=== PATIENT | female | born 1935 | race Caucasian/White ===

== ENCOUNTER 2020-07-22 15:43 | Inpatient (IN) | payer MEDICARE, OTHER, SELFPAY ==
[2020-07-22] VITALS (8 sets, daily range): BP systolic 97–126; BP diastolic 56–80; PULSE 66–78; RESP 16–20; TEMP 36.1–37.3; O2SAT 95–98; BMI 31.6; BMI 31.8
--- NOTE | 2020-07-22 16:26 | CT_ITS ---
STUDY: CT BRAIN WITHOUT CONTRAST REASON FOR EXAM: Female, 84 years old. Headache after a fall RADIATION DOSAGE (If Supplied By Facility): CTDIvol = ( 44.99 ) mGy, DLP = ( 829.85 ) mGycm TECHNIQUE: Transaxial CT imaging of the brain was performed without administration of intravenous contrast material. Individualized dose optimization techniques were used for this CT. COMPARISON: No relevant priors. FINDINGS: Normal soft tissue structures. Normal calvarium. Normal size ventricles and extra-axial spaces for the patient''s age. Normal white matter tracts of the cerebral hemispheres. Normal basal ganglia and thalami. Normal brainstem. Normal cerebellum. There is no intracranial hemorrhage. There are no findings of an acute ischemic infarction. Normal visualized paranasal sinuses. CT/Brain/Head without Contrast IMPRESSION: Chronic involutional changes of the brain. No acute hemorrhage Electronically Signed: Israel Blanco MD at 17:28 EST , Service support ,
--- NOTE | 2020-07-22 16:27 | EKG12_ITS ---
Test Reason : DIZZY Blood Pressure : / mmHG Vent. Rate : 069 BPM Atrial Rate : 069 BPM P-R Int : 144 ms QRS Dur : 088 ms QT Int : 442 ms P-R-T Axes : 027 027 068 degrees QTc Int : 473 ms Normal sinus rhythm with sinus arrhythmia Normal ECG Confirmed by HUNTER HUYNH, SERGEY ([id number]), book editor SHAUNNA RASCON ([id number]) on 07/27/2020 11:14:06 AM Referred By: CORNELIUS Confirmed By:ABRAM HARRISON MD
--- NOTE | 2020-07-22 17:16 | ED.VIS.GEN ---
History of Present Illness Chief Complaint: General Illness Informant: Patient Onset: Days Context: Gradual Onset Timing: Continuous Narrative: Patient is an 84-year-old female with recent hospitalization for diverticulitis, 1 week ago at [facility] and currently on antibiotics, ischemic cardiomyopathy and atrial fibrillation presenting with increased weight gain and shortness of breath. Patient states she has had an 8 pound weight gain in the past week. She states she received a lot of fluid when she was hospitalized last week. She no she has had increased shortness of breath and dyspnea on exertion. She is now short of breath just walking to the other room. She also notes that while she is been taking her Lasix she has had decreased urination last night. She has some mild associated nausea but no vomiting and no abdominal pain. Her bowel movements are still loose but seem to be improving. In addition patient had a mechanical fall yesterday. She states she tripped trying to get up and fell forward. She landed on her face. She had no loss of consciousness. She does have bruising around her nose and eyes and soreness over her nasal bridge. Patient was instructed to come to the ER by her primary care doctor for concern of CHF exacerbation. Finally patient states that she has been having some back and neck pain for quite some time. It seems to be worse than normal. She describes an aching in nature. She denies any new injury. Denies any associated fever. She has had a mild cough that is nonproductive. Past Medical History - Allergies and Home Meds Allergies/Adverse Reactions: Allergies Penicillins [PCN] Allergy (Verified 07/22/20 15:44) Hives Past Medical History: - - Ischemic cardiomyopathy, atrial fibrillation, CHF, rheumatoid arthritis, diverticulitis Surgical History: pacemaker implantation Smoking Status: Never smoker - Family History Maternal Family History: Reports: Cancer, Heart Disease Paternal Family History: Reports: High Cholesterol, Heart Disease, Hypertension Review of Systems General: Reports: Malaise. Denies: Chills, Fever, Sweats Eyes: Denies: Visual changes - bilaterally, Diplopia ENT: Denies: Bilateral ear pain, Rhinorrhea, Sore throat Cardiovascular: Denies: Chest pain, Palpitations Respiratory: Reports: Dyspnea, Cough, Dyspnea on exertion. Denies: Sputum, Orthopnea - Patient denies orthopnea but did sleep in recliner last night Gastrointestinal: Denies: Abdominal pain, Nausea, Vomiting, Diarrhea, Melena, Hematochezia Genitourinary: Denies: Dysuria, Hematuria, Frequency Musculoskeletal: Reports: Neck pain, Back pain, Swelling - Lower extremities. Denies: Extremity Pain Skin: Reports: - - Bruising to face around eyes and nose. Denies: Rash, Wounds Neurological: Denies: Headache, Weakness, Numbness Physical Exam Vital Signs/Narrative: Vital Signs Temp Pulse Resp BP Pulse Ox 07/22/20 15:45 97 F L 73 16 125/56 H 97 Inital Vital Signs reviewed: Yes General: Well nourished, Well developed, No Acute Distress Head: Normocephalic, Atraumatic Eyes: Perrl, EOMI ENT: Moist mucous membranes, No rhinorrhea, TM's clear, - - No hemotympanum, no septal hematoma Neck: Supple, Nontender, - - Mild JVD, no midline tenderness, normal range of motion Cardiovascular: Regular rate, Regular rhythm, No murmurs Respiratory: No distress, Chest nontender, Diminished - Diminished breath sounds at the left base with crackles present Abdomen: Soft, Nontender, Nondistended, Normal bowel sounds Back: Nontender, Normal Inspection. Negative for: CVA tenderness, Spinal tenderness Extremities: Nontender, Edema - 2+ pitting edema up to the proximal shins Skin: Normal color, No rash, Trauma - Periorbital ecchymosis and superficial abrasion on the bridge of the nose Neurological: Alert, Oriented x3, Cranial nerves II-XII grossly intact, Normal Strength, Normal Sensation Psychological: Normal affect, Normal Mood Diagnostic/Tx/Re-eval Chest X-Ray - ED: 1 View, Read by ED Physician, Read by Radiologist, No Acute Disease Clinical Impression(s) from Imaging Studies Brain CT 07/22/20 16:26 IMPRESSION: Chronic involutional changes of the brain. No acute hemorrhage Electronically Signed: Israel Blanco MD at 17:28 EST , Service support , Chest X-Ray 07/22/20 17:20 IMPRESSION: Minor discoid atelectasis or scarring at left base and ASHD. No gross infiltration or pulmonary edema Electronically Signed: Yahir Merida MD at 17:41 EST , Service support , Laboratory Data 07/22/20 07/22/20 07/22/20 17:05 17:05 17:05 WBC 9.7 RBC 3.17 L Hgb 10.1 L Hct 31.7 L MCV 100.0 H MCH 31.9 MCHC 31.9 L RDW Std Deviation 56.6 H RDW Coeff of Christiano 15.4 H Plt Count 144 L MPV 11.7 Immature Gran % (Auto) 0.500 Neut % (Auto) 62.4 Lymph % (Auto) 27.1 [place] % (Auto) 9.2 Eos % (Auto) 0.5 Baso % (Auto) 0.3 Absolute Neuts (auto) 6.0 Absolute Lymphs (auto) 2.63 Nucleated RBC % 0 PT 15.5 H INR 1.3 Sodium 139 Potassium 5.0 Chloride 108 H Carbon Dioxide 24.0 Anion Gap 7 BUN 43 H Creatinine 3.41 H Estim Creat Clear Calc 11.94 Est GFR (MDRD) Af Amer 17 L Est GFR (MDRD) Non-Af 14 L BUN/Creatinine Ratio 12.6 Glucose 91 Calcium 8.7 Magnesium Total Bilirubin 0.20 AST 18 ALT 23 Alkaline Phosphatase 47 Troponin I < 0.015 B-Natriuretic Peptide Total Protein 6.7 Albumin 3.3 Globulin 3.4 Albumin/Globulin Ratio 1.0 Urine Color Urine Clarity Urine pH Ur Specific [place] Urine Protein Urine Glucose (UA) Urine Ketones Urine Occult Blood Urine Nitrite Urine Bilirubin Urine Urobilinogen Ur Leukocyte Esterase Urine RBC Urine WBC Ur Squamous Epith Cells Urine Bacteria Hyaline Casts Urine Mucus Ur Random Sodium Urine Creatinine 07/22/20 07/22/20 07/22/20 17:05 17:05 18:44 WBC RBC Hgb Hct MCV MCH MCHC RDW Std Deviation RDW Coeff of [place] Plt Count MPV Immature Gran % (Auto) Neut % (Auto) Lymph % (Auto) [place] % (Auto) Eos % (Auto) Baso % (Auto) Absolute Neuts (auto) Absolute Lymphs (auto) Nucleated RBC % PT INR Sodium Potassium Chloride Carbon Dioxide Anion Gap BUN Creatinine Estim Creat Clear Calc Est GFR (MDRD) Af Amer Est GFR (MDRD) Non-Af BUN/Creatinine Ratio Glucose Calcium Magnesium 1.8 Total Bilirubin AST ALT Alkaline Phosphatase Troponin I B-Natriuretic Peptide 136.9 H Total Protein Albumin Globulin Albumin/Globulin Ratio Urine Color Urine Clarity Urine pH Ur Specific [place] Urine Protein Urine Glucose (UA) Urine Ketones Urine Occult Blood Urine Nitrite Urine Bilirubin Urine Urobilinogen Ur Leukocyte Esterase Urine RBC Urine WBC Ur Squamous Epith Cells Urine Bacteria Hyaline Casts Urine Mucus Ur Random Sodium 106 Urine Creatinine 84.90 07/22/20 18:45 WBC RBC Hgb Hct MCV MCH MCHC RDW Std Deviation RDW Coeff of Christiano Plt Count MPV Immature Gran % (Auto) Neut % (Auto) Lymph % (Auto) [place] % (Auto) Eos % (Auto) Baso % (Auto) Absolute Neuts (auto) Absolute Lymphs (auto) Nucleated RBC % PT INR Sodium Potassium Chloride Carbon Dioxide Anion Gap BUN Creatinine Estim Creat Clear Calc Est GFR (MDRD) Af Amer Est GFR (MDRD) Non-Af BUN/Creatinine Ratio Glucose Calcium Magnesium Total Bilirubin AST ALT Alkaline Phosphatase Troponin I B-Natriuretic Peptide Total Protein Albumin Globulin Albumin/Globulin Ratio Urine Color Yellow Urine Clarity Clear Urine pH 6.0 Ur Specific [place] 1.020 Urine Protein 15 H Urine Glucose (UA) Normal Urine Ketones Negative Urine Occult Blood 50 H Urine Nitrite Negative Urine Bilirubin Negative Urine Urobilinogen Normal Ur Leukocyte Esterase 500 H Urine RBC 0 SEEN Urine WBC 0-5 SEEN Ur Squamous Epith Cells 0-5 SEEN Urine Bacteria 0 SEEN Hyaline Casts 0-5 SEEN Urine Mucus 0 SEEN Ur Random Sodium Urine Creatinine - Rhythm Strip Rhythm Strip: Sinus Rhythm Rate: 69 Ectopy: None - EKG Initial EKG Interpretation: Sinus Rhythm, - - Normal sinus rhythm at a rate of 69 with sinus arrhythmia Normal axis Normal intervals Normal ST segments - Medical Decision Making Patient evaluated for increased weight gain after recent hospitalization. Concerns for fluid overload. In addition she elicits increase shortness of breath. Patient saw PCP today who was concerned as patient was hypotensive with a systolic blood pressure of 80. In addition patient did have a fall last night which he says was mechanical. Patient is on a blood thinner. Patient does have significant history of CHF/ischemic cardiomyopathy. Despite her weight gain patient appears intravascularly depleted and has a significant bump in her creatinine concerning for acute kidney injury. While her orthostatics are negative her blood pressure is on the low normal side. I think patient would benefit from gentle IV hydration and further inpatient monitoring. Patient is agreeable this plan of care. Patient stable at time of disposition. T of the brain obtained as patient had a fall on anticoagulation. This shows no acute intracranial process. Patient's abdominal pain from her recent diverticulitis is improving. She does have 500 leukoesterase in her urine however no bacteria. Urine culture sent. ED Disposition - Plan for ED Patient: Disposition: [facility] Diagnosis: LES (acute kidney injury), CKD (chronic kidney disease), stage III, Ischemic cardiomyopathy
--- NOTE | 2020-07-22 17:20 | RAD_ITS ---
STUDY: X-RAY CHEST REASON FOR EXAM: Female, 84 years old. fluid retention, weakness, hypotensive TECHNIQUE: PA and lateral COMPARISON: 02/27/2016 FINDINGS: Minor discoid atelectasis or scarring at left base.. There is no demonstrated pleural abnormality. Heart is enlarged. Normal mediastinum and leonie. Normal visualized pulmonary arteries. Mildly calcified aortic arch and descending thoracic aorta. Pacer noted on the left with electrodes in satisfactory position. Dorsal spine and shoulders demonstrate degenerative change. Normal visualized ribs, and clavicles. There is no demonstrated abnormality of the visualized soft tissue structures of the upper abdomen. RAD/Chest PA and Lateral IMPRESSION: Minor discoid atelectasis or scarring at left base and ASHD. No gross infiltration or pulmonary edema Electronically Signed: Yahir Merida MD at 17:41 EST , Service support ,
[2020-07-22 17:22] LABS: Absolute Lymphocyte Count 2.63 X10^3/uL (0.83-4.51); Basophil# 0.03 X10^3/uL; Basophil% 0.3 % (0-1); Eosinophil# 0.05 X10^3/uL; Eosinophils% 0.5 % (0-5); Hematocrit 31.7 % (37-47); Hemoglobin 10.1 g/dL (12.0-15.0); Lymphocyte # 2.63 X10^3/ul (4.0); Lymphocyte % 27.1 % (19-41); Mean Corp Hgb Conc 31.9 g/dL (32-36); Mean Corpuscular Hgb 31.9 pg (27.0-32.0); Mean Platelet Vol. 11.7 fl (6.2-12.0); Monocyte# 0.89 X10^3/uL; Monocyte% 9.2 % (0-10); NRBC Flagged by Analyzer 0 % (0-5); Neutrophil # 6.04 X10^3/uL (2.7-7.7); Neutrophil % 62.4 % (47-70); Platelet Count 144 K/mm3 (150-450); RBC Distribution Width CV 15.4 % (11.6-14.6); RBC Distribution Width SD 56.6 fl (35.1-43.9); Red Blood Count 3.17 M/mm3 (4.2-5.4); White Blood Count 9.7 K/mm3 (4.4-11.0)
[2020-07-22 17:35] LABS: International Normalized Ratio 1.3; Prothrombin Time (Protime)PT. 15.5 SECONDS (11.7-14.9)
[2020-07-22 17:39] LABS: BNP,B-Type NATRIURETIC PEPTIDE 136.9 pg/mL (0-100)
[2020-07-22 17:43] LABS: AST(SGOT) 18 U/L (15-37); Alanine Aminotransfer ALT/SGPT 23 U/L (13-56); Albumin, Serum 3.3 g/dL (3.2-5.0); Alkaline Phosphatase 47 U/L (45-117); Anion Gap 7 (5-15); BUN 43 mg/dL (7-18); BUN/Creat Ratio 12.6 RATIO (10-20); Calcium,Total 8.7 mg/dL (8.5-10.1); Chloride 108 mmol/L (98-107); Creatinine, Serum 3.41 mg/dL (0.55-1.02); EST Glomerular Filtration Rate 14 mL/min (>60); Est Glom Filt Rate - Afr Amer 17 mL/min (>60); Estimated Creatinine Clearance 11.94 ml/min; Globulin 3.4 g/dL (2.2-4.2); Glucose 91 mg/dL (74-106); Protein, Total 6.7 g/dL (6.4-8.2); Sodium Level 139 mmol/L (136-145)
[2020-07-22 18:53] LABS: Color, Urine Yellow (Yellow); Glucose, Dipstick Normal (Normal); Ketone-Dipstick Negative (Negative); Leukocyte Esterase-Dipstick 500 /ul (Negative); Nitrite-Dipstick Negative (Negative); Occult Blood-Urine 50 /ul (Negative); Protein-Dipstick 15 mg/dl (Negative); Urine Bilirubin Dipstick Negative (Negative); Urine Clarity Clear (Clear); Urine Urobilinogen Normal (Normal)
[2020-07-22 18:54] LABS: Bacteria 0 SEEN /hpf (None Seen); Mucous, Urine 0 SEEN /hpf (<or=2+); Red Blood Cells-Urine 0 SEEN /hpf (0-5)
[2020-07-22 19:04] LABS: Hyaline Cast 0-5 SEEN /lpf (0-5); Squamous Epithelial Cells - UA 0-5 SEEN /hpf (5-10); White Blood Cells 0-5 SEEN /hpf (0-5)
--- NOTE | 2020-07-22 19:22 | PCM.HP.STD ---
Problem List (1) LES (acute kidney injury) Status: Acute (2) Hypertension Status: Chronic Qualifiers: Hypertension type: essential hypertension Qualified Code(s): I10 - Essential (primary) hypertension (3) Hyperlipidemia Status: Chronic Qualifiers: Hyperlipidemia type: unspecified Qualified Code(s): E78.5 - Hyperlipidemia, unspecified (4) Chronic anemia Status: Chronic (5) Ischemic cardiomyopathy Status: Chronic (6) CAD (coronary artery disease) Status: Chronic Qualifiers: Coronary Disease-Associated Artery/Lesion type: unspecified vessel or lesion type [place] vs. transplanted heart: unspecified whether [place] or transplanted heart Associated angina: angina presence unspecified Qualified Code(s): I25.10 - Atherosclerotic heart disease of [place] coronary artery without angina pectoris (7) Systolic CHF Status: Chronic Qualifiers: Heart failure chronicity: chronic Qualified Code(s): I50.22 - Chronic systolic (congestive) heart failure (8) Hypothyroidism Status: Chronic Qualifiers: Hypothyroidism type: unspecified Qualified Code(s): E03.9 - Hypothyroidism, unspecified (9) PAF (paroxysmal atrial fibrillation) Status: Chronic (10) CKD (chronic kidney disease), stage III Status: Chronic Qualifiers: Chronic kidney disease stage 3 subtype: unspecified whether 3a or 3b Qualified Code(s): N18.30 - Chronic kidney disease, stage 3 unspecified (11) Anxiety and depression Status: Chronic (12) Rheumatoid arthritis Status: Chronic Qualifiers: Rheumatoid arthritis location: unspecified site History of Present Illness Date of Admission: 07/22/20 Chief Complaint: Weakness, hypotensive, recent [facility] Diverticulitis The patient is a 84 y/o F w/ PMHx: CAD s/p PCI x 6 with hx TX, PAF on eliquis, CKD stage III, Psoriatic Arthritis, HTN, HLD, Hypothyroidism, Obesity, Anxiety and Depression, Chronic anemia/Fe Deficiency anemia, Chronic CHF suspected Systolic/Ischemic Cardiomyopathy s/p AICD/pacemaker who presents to the [facility] ED on 07/22/20 with history of recent hospitalization at [facility] for acute diverticulitis currently on antibiotic therapy who has had worsening dyspnea, reportedly an 8 pound weight gain over the last week and notes that while she was recently hospitalized she did receive significant IV fluids noting significant dyspnea primarily worse with exertion and despite taking her Lasix has had decreased urine output with some mild nausea with no emesis however. She notes that her bowel movements have been improving, still mildly loose but less than previously. Patient notes that she has been weak and did have mechanical fall the day prior, falling forward landing on her face with no loss of consciousness but significant ecchymoses around her nose, nasal bridge and eyes. She had a history of COVID the prior October and has had pulmonary issues following per her report. She was seen per her PCP in the office today and was noted to be hypotensive at that time. Work-up in the ED included T 97, heart rate 73, BP 125/56 after repeat 98/56, not severe appearing orthostatics, respiratory rate 16, 97% on room air, CBC with WC 9.7, hemoglobin 10.1, platelet 144 without marked shift, coags with PT 15.5, INR 1.3, CMP with chloride 108, BUN/creatinine 43/3.41, troponin less than 0.015, BNP 136.9, urinalysis with specific gravity 1.020, occult blood 50, negative nitrite, leukocyte esterase 500, no urine WBCs or urine bacteria noted, SARS Covid rapid antigen negative, CT of the brain with chronic involutional changes with no acute intracranial findings, chest x-ray with minor discoid atelectasis or scarring at the left base and ASHD with no acute cardiopulmonary findings including pulmonary edema. Past Medical History Past Medical History (Chronic Problems): Chronic Problems Hypertension (Chronic) Hyperlipidemia (Chronic) Chronic anemia (Chronic) Ischemic cardiomyopathy (Chronic) CAD (coronary artery disease) (Chronic) Systolic CHF (Chronic) Hypothyroidism (Chronic) PAF (paroxysmal atrial fibrillation) (Chronic) CKD (chronic kidney disease), stage III (Chronic) Anxiety and depression (Chronic) Rheumatoid arthritis (Chronic) Allergies Penicillins [PCN] Allergy (Verified 07/22/20 15:44) Hives Home Medications: Ambulatory Orders Medication Instructions Recorded Abatacept [Orencia] 500 mg IV X1 02/25/16 Aspirin [Aspirin, Baby] 81 mg PO DAILY@79902/25/16 Calcium Carbonate/Vitamin D3 1 each PO BID 02/25/16 [Caltrate 600 Plus D3 Tablet] Citalopram [Celexa] 20 mg PO DAILY 02/25/16 Ferrous Sulfate 325 mg PO DAILY@79902/25/16 Folic Acid 1 mg PO DAILY@79902/25/16 Gabapentin [Neurontin] 100 mg PO BIDCM 02/25/16 Metoprolol(XL)Succ [Toprol Xl 25 mg PO DAILY 02/25/16 (Beta Mariela)] Nitroglycerin (INPATIENT USE) 0.4 mg SUBLINGUAL Q5M PRN 02/25/16 [Nitrostat] Levothyroxine [Synthroid] 100 mcg PO DAILY 02/26/16 Apixaban [Eliquis] 2.5 mg PO BID 07/22/20 Furosemide [Lasix] 20 mg PO MOWEFR 07/22/20 Gabapentin [Neurontin] 300 mg PO QHS 07/22/20 Isosorbide Mononitrate [Imdur] 120 mg PO DAILY 07/22/20 Lisinopril [Zestril] 2.5 mg PO DAILY 07/22/20 Lovastatin 20 mg PO QHS 07/22/20 Potassium Chloride [Klor-Con M10] 10 meq PO MOWEFR 07/22/20 Prednisone 5 mg PO BID 07/22/20 Sacubitril/Valsartan 24/26 mg 1 tab PO BID 07/22/20 [Entresto 24 mg-26 mg Tablet] Smz/Tmp Ds [Bactrim Ds] 1 tab PO BID 07/22/20 metroNIDAZOLE [Flagyl] 500 mg PO TID 07/22/20 traMADol [Ultram (G)] 100 mg PO Q6H PRN PRN 07/22/20 Surgical History: pacemaker implantation, - - AICD/pacemaker, bilateral cataract surgery, cholecystectomy, left femur fracture, right ankle total replacement, hemorrhoidectomy, PCI x6. 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 Denies: Chills, Fever, Weight Change HEENT: Reports: - - Facial discomfort given recent fall, landing on face.. Denies: Head Aches, Sinus Congestion, Sinus Drainage Cardiovascular: Reports: Edema. Denies: Chest Pain, Chest Pressure, Chest Tightness, Light Headedness, Orthopnea, Palpitations, Syncope Respiratory: Reports: Cough, Shortness of breath upon exertion. Denies: Shortness of Breath, Shortness of breath at rest, Sputum production Gastrointestinal: Denies: Abdominal Pain, Nausea, Vomiting Genitourinary: Denies: Dysuria Musculoskeletal: Reports: Joint Pain. Denies: Joint Tenderness Skin: Reports: Skin Changes. Denies: Rash, Wounds Neurological: Denies: Numbness, Tingling, Focal weakness Psychiatric: Reports: Anxiety, Depression. Denies: Homicidal Ideations, Suicidal Ideations Hematologic/ Lymphatic: Reports: Anemia, Easy Bruising, Easy Bleeding VTE Information - Inpt Only VTE Present on Admission: No VTE Mechan Device Prophylaxis: SCD's VTE Pharm Prophylaxis ordered?: No Reason prophylaxis not ordered:: Treatment Not Indicated - Continue home eliquis regimen. Patient Problems: Active and Suspected Problems LES (acute kidney injury) (Acute) Subjective: Patient seated upright in the ED bed, fatigued appearing otherwise no acute distress, significant recent ecchymoses to the face. Objective: Physical Examination: General: awake, alert, oriented x 3 and cooperative, seated upright in the ED bed, no obvious distress, no evidence of respiratory distress. Skin: normal color, turgor, no icterus, cyanosis except significant various staged ecchymoses to extremities and recent facial significant ecchymotic changes status post recent fall. HEENT: AT/NC, EOMI, PERRLA, mildly dry MM, no carotid bruits or JVD noted. Lungs: Diminished breath sounds, moderate effort, no evidence of any distress, no rales, ronchi or wheezing. Heart: Regular rate and rhythm/status post pacemaker; no gallop, rub audible. Abdomen: soft, obese, NTTP, ND, mildly hyperactive BS, no HSM. Extremities: no cyanosis or clubbing, significant skin changes with very staged ecchymoses as noted, bilateral ankle to distal garcia 1+ pitting edema. Neurological: patient awake, alert, oriented as noted; cognitive function appears baseline intact; pupils equally reactive to light and accomodation; cranial nerves II-XII grossly normal, moving all 4 extremities, no focal deficits, strength moderately to severely globally decreased secondary to acute presentation. Psychiatric: affect appears fatigued otherwise normal, no acute evidence of depressive or anxiety feelings. - Physical Exam Vitals/I&O's: Vital Signs Temp Pulse Resp BP Pulse Ox 97 F L 66 20 H 98/56 L 95 07/22/20 15:45 07/22/20 19:04 07/22/20 19:03 07/22/20 19:04 07/22/20 19:03 Oxygen Delivery Method Room Air Weight: 202 lb Body Mass Index (BMI) 31.6 Microbiology Past 72 Hours 07/22/20 17:25 Mucosa - Nose SARS-CoV-2 Antigen (Rapid) - Final Laboratory Results 07/22/20 17:05: WBC 9.7, RBC 3.17 L, Hgb 10.1 L, Hct 31.7 L, MCV 100.0 H, MCH 31.9, MCHC 31.9 L, RDW Std Deviation 56.6 H, RDW Coeff of [place] 15.4 H, Plt Count 144 L, MPV 11.7, Immature Gran % (Auto) 0.500, Neut % (Auto) 62.4, Lymph % (Auto) 27.1, Barron % (Auto) 9.2, Eos % (Auto) 0.5, Baso % (Auto) 0.3, Absolute Neuts (auto) 6.0, Absolute Lymphs (auto) 2.63, Nucleated RBC % 0 07/22/20 17:05: PT 15.5 H, INR 1.3 07/22/20 17:05: Sodium 139, Potassium 5.0, Chloride 108 H, Carbon Dioxide 24.0, Anion Gap 7, BUN 43 H, Creatinine 3.41 H, Estim Creat Clear Calc 11.94, Est GFR (MDRD) Af Amer 17 L, Est GFR (MDRD) Non-Af 14 L, BUN/Creatinine Ratio 12.6, Glucose 91, Calcium 8.7, Total Bilirubin 0.20, AST 18, ALT 23, Alkaline Phosphatase 47, Troponin I < 0.015, Total Protein 6.7, Albumin 3.3, Globulin 3.4, Albumin/Globulin Ratio 1.0 07/22/20 17:05: B-Natriuretic Peptide 136.9 H 07/22/20 18:45: Urine Color Yellow, Urine Clarity Clear, Urine pH 6.0, Ur Specific [place] 1.020, Urine Protein 15 H, Urine Glucose (UA) Normal, Urine Ketones Negative, Urine Occult Blood 50 H, Urine Nitrite Negative, Urine Bilirubin Negative, Urine Urobilinogen Normal, Ur Leukocyte Esterase 500 H, Urine RBC 0 SEEN, Urine WBC 0-5 SEEN, Ur Squamous Epith Cells 0-5 SEEN, Urine Bacteria 0 SEEN, Hyaline Casts 0-5 SEEN, Urine Mucus 0 SEEN Assessment/Plan All Active Problems LES (acute kidney injury) (Acute) Cellulitis (Acute) The patient is a 84 y/o F w/ PMHx: PAF on eliquis, CKD stage III, Psoriatic Arthritis, HTN, HLD, Hypothyroidism, Obesity, Anxiety and Depression, Chronic anemia/Fe Deficiency anemia, Chronic CHF unclear type who presents to the [facility] ED on 07/22/20 with history of recent hospitalization at [facility] for acute diverticulitis currently on antibiotic therapy who has had worsening dyspnea, reportedly an 8 pound weight gain over the last week and notes that while she was recently hospitalized she did receive significant IV fluids noting significant dyspnea primarily worse with exertion and despite taking her Lasix has had decreased urine output with some mild nausea with no emesis however. Acute kidney injury on CKD stage III: Secondary to likely acute presentation with recent acute diverticulitis, GI losses, medications. Admission BUN/Cr 43/3.41, prior baseline creatinine noted to be 1.16 on 02/28/2016. Will judiciously hydrate, hold nephrotoxic medications and repeat chemistry in AM. Will obtain FeNa assessment and if necessary may consider renal ultrasound as well as consultation with nephrology. Debility, Mechanical Falls likely secondary to Dehydration: CT head without acute findings, obtained as patient is anticoagulated, monitor for falls, PT/OT/Case management consultation for discharge planning, likely dehydration greatly contributing. Recent Acute Diverticulitis: Likely her current regimen of bactrim and flagyl contributing, will transition to Flagyl and Rocephin if able to tolerate, will continue cardiac diet, monitor for worsened loose stools and if necessary may obtained stools samples. Chronic macrocytic anemia: Admission hemoglobin 10.1, prior 10.6, MCV currently 100, similar to prior, encourage continued outpatient follow-up trend CBC, continue Fe supplementation and folic acid supplementation. CAD: Status post PCI x6, status post AICD/pacemaker with significant ischemic injury associated, we will continue patient aspirin, Eliquis, metoprolol, statin, holding patient Entresto. Would plan to discontinue patient lisinopril permanently. Chronic thrombocytopenia: Admission platelets 144, previously 127-130, continue to trend, repeat CBC in AM. Psoriatic arthritis: Per review of records patient is on Aricept outpatient infusion, encourage continued follow-up with her library page. Continue patient low-dose scheduled prednisone therapy. Chronic CHF, unclear type but presumed Systolic/Ischemic Cardiomyopathy: s/p AICD/pacemaker, will continue patient home Eliquis, isosorbide, metoprolol, holding Entresto and Lasix given acute presentation, resume once appropriate. Given usage of Entresto would discontinue lisinopril permanently however. PAF: We will continue patient home metoprolol and Eliquis regimen. Hypertension: Continue home regimen including isosorbide, metoprolol, holding patient Entresto, Lasix as noted, resume once appropriate, except given patient on Entresto would discontinue patient lisinopril, PRN hydralazine. Hyperlipidemia: Continue home statin regimen. Hypothyroidism: Continue home synthroid regimen. Anxiety and depression: Given significant renal function changes with acute kidney injury will temporarily hold Celexa, add back once appropriate. DVT Prophylaxis: SCDs, continue home eliquis regimen. CODE status: Patient HCPOA is her and living will is she notes not in place but encouraged to discuss these items with case management/social work. Discussed CODE status at length including difference between FULL code, DNR-CCA and DNR-CC status. Following discussions about the differences in these status, requested DNR-CCA, no intubation. Advanced Care Planning Face to Face Time: 16 minutes. Inpatient E&M: 07785 Init Hosp L3 Procedures: 21386 Advncd Care Plan 30 Min
[2020-07-22] MEDS: 0.9% Normal Saline 1,000 ML 150 ML IV (19:48)
--- NOTE | 2020-07-22 20:02 | PCS.PANDOC ---
PANDEMIC DOCUMENTATION INITIATED: Date: 07/22/2020 Time: 1999
[2020-07-22] MEDS: 0.9% Normal Saline 1,000 ML 100 ML IV (21:00)
[2020-07-22 21:19] LABS: Magnesium 1.8 mg/dL (1.6-2.6)
[2020-07-22] MEDS: Calcium Carb/Vitamin D 1 TABLET Tablet PO (22:45)
[2020-07-22] MEDS: metroNIDAZOLE 500 MG Tablet PO (22:45)
[2020-07-22] MEDS: APIXABAN 2.5 MG TABLET PO (22:45)
[2020-07-22] MEDS: Atorvastatin Calcium 10 MG Tablet 5 MG PO (22:46)
[2020-07-23] VITALS (9 sets, daily range): BP systolic 99–119; BP diastolic 57–77; PULSE 61–80; RESP 16–18; TEMP 36.4–36.8; O2SAT 95–99
[2020-07-23 00:13] LABS: Urine Sodium 106 mmol/L (Not Establ.)
[2020-07-23] MEDS: metroNIDAZOLE 500 MG Tablet PO ×3 (05:30→21:34)
[2020-07-23] MEDS: Levothyroxine 100 MCG Tablet PO (05:30)
[2020-07-23] MEDS: 0.9% Normal Saline 1,000 ML 100 ML IV ×2 (05:52→16:34)
--- NOTE | 2020-07-23 05:55 | RAD_ITS ---
STUDY: X-RAY CHEST REASON FOR EXAM: Female, 84 years old. Dyspnea TECHNIQUE: Single AP portable view of the chest. COMPARISON: Comparison is made with prior study dated 07/22/2020. FINDINGS: EKG electrodes are seen. Mild elevation of the right hemidiaphragm. Stable minimal linear scarring at the left lung base. There is no demonstrated pleural abnormality. Normal size heart. A dual-chamber pacemaker is seen. Normal mediastinum and leonie. Normal visualized pulmonary arteries. Normal visualized aortic arch and descending thoracic aorta. There are diffuse degenerative changes of the visualized thoracic spine. There is degenerative osteoarthritis of the bilateral shoulders. There is no demonstrated abnormality of the visualized soft tissue structures of the upper abdomen. RAD/Chest 1 View (Portable) IMPRESSION: Stable minimal increased linear markings at the left lung base suggestive of scarring and/or atelectasis. Electronically Signed: Darrin Jones MD at 9:24 EST , Service support ,
[2020-07-23 06:54] LABS: Absolute Lymphocyte Count 2.39 X10^3/uL (0.83-4.51); Absolute Neutrophil Count 3.3 X10^3/uL (2.0-7.7); Basophil# 0.02 X10^3/uL; Basophil% 0.3 % (0-1); Eosinophil# 0.06 X10^3/uL; Eosinophils% 0.9 % (0-5); Hematocrit 30.5 % (37-47); Hemoglobin 9.5 g/dL (12.0-15.0); Lymphocyte # 2.39 X10^3/ul (4.0); Lymphocyte % 37.4 % (19-41); Mean Corp Hgb Conc 31.1 g/dL (32-36); Mean Corpuscular Volume 99.7 fL (81-99); Mean Platelet Vol. 11.6 fl (6.2-12.0); Monocyte% 9.4 % (0-10); NRBC Flagged by Analyzer 0 % (0-5); Neutrophil # 3.28 X10^3/uL (2.7-7.7); Neutrophil % 51.4 % (47-70); Platelet Count 141 K/mm3 (150-450); RBC Distribution Width CV 15.4 % (11.6-14.6); RBC Distribution Width SD 56.5 fl (35.1-43.9); Red Blood Count 3.06 M/mm3 (4.2-5.4); White Blood Count 6.4 K/mm3 (4.4-11.0)
[2020-07-23 07:31] LABS: AST(SGOT) 21 U/L (15-37); Alanine Aminotransfer ALT/SGPT 24 U/L (13-56); Albumin, Serum 3.1 g/dL (3.2-5.0); Alkaline Phosphatase 46 U/L (45-117); Anion Gap 7 (5-15); BUN 33 mg/dL (7-18); BUN/Creat Ratio 13.7 RATIO (10-20); Calcium,Total 8.4 mg/dL (8.5-10.1); Chloride 112 mmol/L (98-107); Creatinine, Serum 2.41 mg/dL (0.55-1.02); EST Glomerular Filtration Rate 20 mL/min (>60); Est Glom Filt Rate - Afr Amer 25 mL/min (>60); Globulin 3.1 g/dL (2.2-4.2); Glucose 80 mg/dL (74-106); Potassium 4.9 mmol/L (3.5-5.1); Protein, Total 6.2 g/dL (6.4-8.2); Sodium Level 141 mmol/L (136-145)
[2020-07-23] MEDS: predniSONE 5 MG Tablet PO ×2 (08:23→16:33)
[2020-07-23] MEDS: Ferrous Sulfate 325 MG Tablet PO (08:23)
[2020-07-23] MEDS: Aspirin 81 MG TAB.CHEW PO (08:23)
[2020-07-23] MEDS: Metoprolol(XL)Succ 25 MG Tablet PO (08:23)
[2020-07-23] MEDS: Gabapentin 100 MG Capsule PO ×2 (08:23→16:33)
[2020-07-23] MEDS: APIXABAN 2.5 MG TABLET PO ×2 (08:23→21:33)
[2020-07-23] MEDS: Calcium Carb/Vitamin D 1 TABLET Tablet PO ×2 (08:23→21:34)
[2020-07-23] MEDS: Folic Acid 1 MG Tablet PO (08:23)
--- NOTE | 2020-07-23 12:25 | PN_ITS ---
Patient Problems: Active and Suspected Problems LES (acute kidney injury) (Acute) Subjective: Patient seen and examined. SHe was admitted with a complaint of weakness and hypotension. She was recently admitted at [facility] for diverticulitis and states after she was discharged home he started having diarrhea and felt weak. She states she received significant amount of fluid was at [facility] and thinks she had an 8 pound weight gain after she was discharged. She also complained of shortness of breath which worsened with exertion. She had been having diarrhea and states she fell at home prior to admission. She went see her PCP on the day of admission and was noted to be hypotensive. Orthostatics were positive. CT of the brain was negative for any acute intracranial pathology and chest x-ray also showed no acute findings. She was admitted to be managed for debility due to mechanical fall as well as LES on CKD 3. Patient had no complaints today and felt better. Diarrhea had resolved. Review of systems otherwise negative. He has remained hemodynamically stable. Creatinine is trending down to 2.41 from 3.41 on admission. Vitals/I&O's: Vital Signs Temp Pulse Resp BP Pulse Ox 98.2 F 69 18 118/77 95 07/23/20 08:20 07/23/20 08:23 07/23/20 08:20 07/23/20 08:20 07/23/20 08:20 Oxygen Delivery Method Room Air Weight: 204 lb 5.896 oz Body Mass Index (BMI) 31.8 Intake and Output for Last 24 Hours 07/21/20 07/22/20 07/23/20 23:59 23:59 23:59 Intake Total 230 / 230 1687.34 / 1687.34 Balance 230 / 230 1687.34 / 1687.34 General: Alert, Oriented x3, Cooperative HEENT: Atraumatic, PERRLA, EOMI, Normocephalic Oral: Moist Mucosa Neck: Supple, No JVD, Negative Carotid Bruits Lungs: Clear to auscultation, Normal air movement, No rhonchi, No wheeze, No rales Cardiovascular: Regular rate, Regular Rhythm, Normal S1, Normal S2, No murmurs Abdomen: Bowel Sounds Present, Soft, Non Tender, Non-Distended, No Hepato- splenomegaly Extremities: No clubbing, No cyanosis, No edema, Capillary Refill Less than 3 Seconds Skin: - - periorbital bruising due to mechanical fall, which is resolving. Musculoskeletal: No Tenderness to Palpation of Joints or Extremities Lymphatic: No Cervical, Supraclavicular, or Inguinal Adenopathy Neurological: Cranial nerves II-XII grossly intact, Neuro grossly intact, Motor Exam 5/5 strength throughout Psych/Mental Status: Normal Affect, Appropriate, Alert and oriented to time, place, person, mood and affect Microbiology Past 72 Hours 07/22/20 17:25 Mucosa - Nose SARS-CoV-2 Antigen (Rapid) - Final Laboratory Results 07/22/20 17:05: WBC 9.7, RBC 3.17 L, Hgb 10.1 L, Hct 31.7 L, MCV 100.0 H, MCH 31.9, MCHC 31.9 L, RDW Std Deviation 56.6 H, RDW Coeff of Christian[place] 15.4 H, Plt Count 144 L, MPV 11.7, Immature Gran % (Auto) 0.500, Neut % (Auto) 62.4, Lymph % (Auto) 27.1, [place] % (Auto) 9.2, Eos % (Auto) 0.5, Baso % (Auto) 0.3, Absolute Neuts (auto) 6.0, Absolute Lymphs (auto) 2.63, Nucleated RBC % 0 07/22/20 17:05: PT 15.5 H, INR 1.3 07/22/20 17:05: Sodium 139, Potassium 5.0, Chloride 108 H, Carbon Dioxide 24.0, Anion Gap 7, BUN 43 H, Creatinine 3.41 H, Estim Creat Clear Calc 11.94, Est GFR (MDRD) Af Amer 17 L, Est GFR (MDRD) Non-Af 14 L, BUN/Creatinine Ratio 12.6, Glucose 91, Calcium 8.7, Total Bilirubin 0.20, AST 18, ALT 23, Alkaline Phosphatase 47, Troponin I < 0.015, Total Protein 6.7, Albumin 3.3, Globulin 3.4, Albumin/Globulin Ratio 1.0 07/22/20 17:05: B-Natriuretic Peptide 136.9 H 07/22/20 17:05: Magnesium 1.8 07/22/20 18:44: Ur Random Sodium 106, Urine Creatinine 84.90 07/22/20 18:45: Urine Color Yellow, Urine Clarity Clear, Urine pH 6.0, Ur Specific [place] 1.020, Urine Protein 15 H, Urine Glucose (UA) Normal, Urine Ketones Negative, Urine Occult Blood 50 H, Urine Nitrite Negative, Urine Bilirubin Negative, Urine Urobilinogen Normal, Ur Leukocyte Esterase 500 H, Urine RBC 0 SEEN, Urine WBC 0-5 SEEN, Ur Squamous Epith Cells 0-5 SEEN, Urine Bacteria 0 SEEN, Hyaline Casts 0-5 SEEN, Urine Mucus 0 SEEN 07/23/20 06:40: WBC 6.4, RBC 3.06 L, Hgb 9.5 L, Hct 30.5 L, MCV 99.7 H, MCH 31.0, MCHC 31.1 L, RDW Std Deviation 56.5 H, RDW Coeff of [place] 15.4 H, Plt Count 141 L, MPV 11.6, Immature Gran % (Auto) 0.600, Neut % (Auto) 51.4, Lymph % (Auto) 37.4, [place] % (Auto) 9.4, Eos % (Auto) 0.9, Baso % (Auto) 0.3, Absolute Neuts (auto) 3.3, Absolute Lymphs (auto) 2.39, Nucleated RBC % 0 07/23/20 06:40: Sodium 141, Potassium 4.9, Chloride 112 H, Carbon Dioxide 22.0, Anion Gap 7, BUN 33 H, Creatinine 2.41 H, Estim Creat Clear Calc 16.90, Est GFR (MDRD) Af Amer 25 L, Est GFR (MDRD) Non-Af 20 L, BUN/Creatinine Ratio 13.7, Glucose 80, Calcium 8.4 L, Total Bilirubin 0.40, AST 21, ALT 24, Alkaline Phosphatase 46, Total Protein 6.2 L, Albumin 3.1 L, Globulin 3.1, Albumin/Globulin Ratio 1.[address] 07/22/20 16:26 IMPRESSION: Chronic involutional changes of the brain. No acute hemorrhage Electronically Signed: Israel Blanco MD at 17:28 EST , Service support , Chest X-Ray 07/23/20 05:55 IMPRESSION: Stable minimal increased linear markings at the left lung base suggestive of scarring and/or atelectasis. Electronically Signed: Darrin Jones MD at 9:24 EST , Service support , Current Medications Acetaminophen (Acetaminophen 325 Mg Tablet) 650 mg PO Q6H PRN PRN PRN Reason: Pain Score 1-10/Temp > 100.7 F Al Hydroxide/Mg Hydroxide (Mag Hydrox/Al Hydrox/Simeth 30 Ml Udc) 30 ml PO Q6H PRN PRN PRN Reason: Gastric Burning Albuterol Sulfate (Albuterol 2.5 Mg/3 Ml Vial.Neb.) 2.5 mg INHALATION Q2H PRN PRN PRN Reason: Dyspnea, wheezing Apixaban (Apixaban 2.5 Mg Tablet) 2.5 mg PO BID [facility] Last Admin: 07/23/20 08:23 Dose: 2.5 mg Documented by: Aspirin (Aspirin 81 Mg Tab.Chew) 81 mg PO DAILY@0800 [facility] Last Admin: 07/23/20 08:23 Dose: 81 mg Documented by: Atorvastatin Calcium (Atorvastatin Calcium 10 Mg Tablet) 5 mg PO QHS [facility] Last Admin: 07/22/20 22:46 Dose: 5 mg Documented by: Calcium/Vitamin D (Calcium Carb/Vitamin D 1 Tablet Tablet) 1 tablet PO BID [facility] Last Admin: 07/23/20 08:23 Dose: 1 tablet Documented by: Ferrous Sulfate (Ferrous Sulfate 325 Mg Tablet) 325 mg PO DAILY@0800 [facility] Last Admin: 07/23/20 08:23 Dose: 325 mg Documented by: Folic Acid (Folic Acid 1 Mg Tablet) 1 mg PO DAILY@0800 [facility] Last Admin: 07/23/20 08:23 Dose: 1 mg Documented by: Gabap[facility] ([facility] 100 Mg Capsule) [facility] Admin: 07/23/20 08:23 Dose: 100 mg Documented by: Guaifenesin (Guaifenesin 10 Ml Udc (200mg/10ml)) 20 ml PO Q4H PRN PRN PRN Reason: COUGH Hydralazine HCl (Hydralazine 20 Mg/Ml Vial) 10 mg IV Q4H PRN PRN PRN Reason: SBP > 160 Ceftriaxone Sodium 2 gm/ (Sodium Chloride) 50 mls @ 100 mls/hr IV Q24 [facility] Last Infusion: 07/23/20 10:20 Dose: Infused Documented by: Sodium Chloride () 1,000 mls @ 100 mls/hr IV .Q10H [facility] Last Infusion: 07/23/20 10:20 Dose: 100 mls/hr Documented by: Isosorbide Mononitrate (Isosorbide Mononitrate 120 Mg Tablet) 120 mg PO DAILY [facility] Last Admin: 07/23/20 08:23 Dose: 120 mg Documented by: Levothyroxine Sodium (Levothyroxine 100 Mcg Tablet) 100 mcg PO DAILY@0600 [facility] Last Admin: 07/23/20 05:30 Dose: 100 mcg Documented by: Melatonin (Melatonin 3 Mg Tablet) 3 mg PO QHS PRN PRN PRN Reason: INSOMNIA Metoprolol Succinate (Metoprolol(Xl)Succ 25 Mg Tablet) 25 mg PO DAILY [facility] Last Admin: 07/23/20 08:23 Dose: 25 mg Documented by: Metronidazole (Metronidazole 500 Mg Tablet) 500 mg PO TID [facility] Last Admin: 07/23/20 05:30 Dose: 500 mg Documented by: Nitroglycerin (Nitroglycerin (Inpatient Use) 0.4 Mg Tab.Subl) 0.4 mg SUBLINGUAL Q5M PRN PRN Reason: CHEST Ondansetron HCl (Ondansetron 4 Mg/2 Ml Vial) 4 mg IV Q8H PRN PRN PRN Reason: NAUSEA/VOMITING Prednisone (Prednisone 5 Mg Tablet) 5 mg PO BIDCM [facility] Last Admin: 07/23/20 08:23 Dose: 5 mg Documented by: Prochlorperazine Edisylate (Prochlorperazine 10 Mg/2 Ml Vial) 5 mg IV Q4H PRN PRN PRN Reason: Breakthrough Nausea/Vomiting Sodium Chloride (0.9% Saline Lock 10 Ml Syringe) 10 - 40 ml IV UD PRN PRN Reason: SALINE FLUSH Throat Lozenges (Benzocaine/Menthol 1 Lozenge) 1 lozenge MUCOUS MEM Q2H PRN PRN PRN Reason: SORE THROAT Tramadol HCl (Tramadol 50 Mg Tablet) 50 mg PO Q6H PRN PRN PRN Reason: Pain 1-10 or Fever Medical Necessity - Tobacco Use Smoking Status: Never smoker Tobacco Use: Non-smoker Assessment/Plan All Active Problems LES (acute kidney injury) (Acute) Cellulitis (Acute) #Les on CKD 3 * Due to decreased intake. * Creatinine was 3.41 on admission with a baseline of around 1.16. Creatinine today is 2.41. * Continue gentle hydration with IV fluid. Since kidney function is improving, will hold off on renal ultrasound and nephro consult. If kidney function worsens, will consult nephrology. * #Debility due to mechanical falls: * Falls likely due to dehydration though she says she is fallen about 3 times over the past couple of months. * PT OT on board. * Follow-up precautions. * #Acute diverticulitis: * He was discharged home on Bactrim and Flagyl from [facility]. * Diarrhea has stopped now. * Will monitor. * #Chronic macrocytic anemia: stable. hb is 9.5. #CAD s/p stents; * Has ICD/pacemaker in place. On aspirin, Eliquis, metoprolol, and statin #psoriatic arthritis; on aricept infusion on outpatient basis. Continue low dose prednisone. #HF: EF unknown. lasix and entresto on hold o/a of LES. Continue Imdur and metoprolol. Static paroxysmal A. fib: On metoprolol and Eliquis. #Hypertension: On metoprolol. Lisinopril on hold as above. #Hyperlipidemia: on statin #Hypothyroidism: on synthroid DVT prophylaxis; on eliquis. Inpatient E&M: 57719 [facility] L3
--- NOTE | 2020-07-23 12:33 | CASEMGMT ---
MARJORIE CHAPMAN assessment: Face to Face with patient for initial transition planning/care coordination assessment. MARJORIE CHAPMAN introduced self and role at [facility], pt voices understanding and consents to assessment at this time. Pt is lying in bed in no distress at this time. Pt is A/Ox4 at this time and answers all questions appropriately at this time. Pt has bruising to bilat eyes d/t fall at home. Care providers, pharmacy, and demographics verified at this time. 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 LNOK: Carolyn Park, ; Domiink Park, son Living Arrangements: Pt states lives with in 1 story home with 2 steps in and states no concerns at home at this time. Pt states is independent with ADL's. Transportation: Pt states drives self and states no transportation concerns at this time. DME/HHC: Pt states has the following DME: cane, walker, w/c, grab bars and shower chair. Pt declines need for any further DME at this time. Pt states she has been using cane at home but plans to use WW from now on. Pt states has had HHC in the past and has been to [facility] and a SNF in [place] previously. Pt adamantly declines HHC and SNF at this time. Pt states no concerns with going home at time of discharge. Pt states is retired. Pt states does not smoke cigarettes or drink ETOH. Pt states no further concerns/needs at this time. CM to follow for any further discharge planning/needs. Advised pt to ask for CM if any further questions/concerns/needs arise, voices understanding. Pt Goal: [place] MARJORIE CHAPMAN
[2020-07-23] MEDS: MELATONIN 3 MG TABLET PO (21:34)
[2020-07-23] MEDS: Atorvastatin Calcium 10 MG Tablet 5 MG PO (21:34)
[2020-07-23] MEDS: Acetaminophen 325 MG Tablet 650 MG PO (23:14)
[2020-07-24] VITALS (9 sets, daily range): BP systolic 116–167; BP diastolic 71–96; PULSE 65–80; RESP 18; TEMP 36.7–36.9; O2SAT 95–98
[2020-07-24] MEDS: 0.9% Normal Saline 1,000 ML 100 ML IV (02:32)
[2020-07-24] MEDS: traMADol 50 MG Tablet PO (02:33)
[2020-07-24] MEDS: metroNIDAZOLE 500 MG Tablet PO (05:55)
[2020-07-24] MEDS: Levothyroxine 100 MCG Tablet PO (05:55)
[2020-07-24] MEDS: Aspirin 81 MG TAB.CHEW PO (07:50)
[2020-07-24] MEDS: Calcium Carb/Vitamin D 1 TABLET Tablet PO (07:50)
[2020-07-24] MEDS: Folic Acid 1 MG Tablet PO (07:50)
[2020-07-24] MEDS: predniSONE 5 MG Tablet PO (07:50)
[2020-07-24] MEDS: Gabapentin 100 MG Capsule PO (07:50)
[2020-07-24] MEDS: APIXABAN 2.5 MG TABLET PO (07:51)
[2020-07-24] MEDS: Ferrous Sulfate 325 MG Tablet PO (07:51)
[2020-07-24] MEDS: Metoprolol(XL)Succ 25 MG Tablet PO (07:51)
[2020-07-24 08:45] LABS: Absolute Lymphocyte Count 2.02 X10^3/uL (0.83-4.51); Absolute Neutrophil Count 4.1 X10^3/uL (2.0-7.7); Basophil# 0.03 X10^3/uL; Basophil% 0.4 % (0-1); Eosinophil# 0.06 X10^3/uL; Eosinophils% 0.9 % (0-5); Hematocrit 30.4 % (37-47); Hemoglobin 9.7 g/dL (12.0-15.0); Lymphocyte # 2.02 X10^3/ul (4.0); Lymphocyte % 29.9 % (19-41); Mean Corp Hgb Conc 31.9 g/dL (32-36); Mean Corpuscular Hgb 31.8 pg (27.0-32.0); Mean Corpuscular Volume 99.7 fL (81-99); Mean Platelet Vol. 11.1 fl (6.2-12.0); Monocyte# 0.54 X10^3/uL; NRBC Flagged by Analyzer 0 % (0-5); Neutrophil # 4.06 X10^3/uL (2.7-7.7); Neutrophil % 60.2 % (47-70); Platelet Count 143 K/mm3 (150-450); RBC Distribution Width CV 15.1 % (11.6-14.6); RBC Distribution Width SD 55.7 fl (35.1-43.9); Red Blood Count 3.05 M/mm3 (4.2-5.4); White Blood Count 6.8 K/mm3 (4.4-11.0)
[2020-07-24 09:19] LABS: Anion Gap 4 (5-15); BUN 25 mg/dL (7-18); BUN/Creat Ratio 16.9 RATIO (10-20); Calcium,Total 8.9 mg/dL (8.5-10.1); Chloride 114 mmol/L (98-107); Creatinine, Serum 1.48 mg/dL (0.55-1.02); EST Glomerular Filtration Rate 36 mL/min (>60); Est Glom Filt Rate - Afr Amer 43 mL/min (>60); Estimated Creatinine Clearance 27.52 ml/min; Glucose 98 mg/dL (74-106); Potassium 5.2 mmol/L (3.5-5.1); Sodium Level 143 mmol/L (136-145)
[2020-07-24] MEDS: Sodium Polystyrene Sulfonate 15 GM/60 ML UDC PO (12:10)
--- NOTE | 2020-07-24 14:12 | DCINST_ITS ---
- Discharge Diagnoses Current Active Problems: Current Active and Chronic Problems LES (acute kidney injury) (Acute) Hypertension (Chronic) Hyperlipidemia (Chronic) Chronic anemia (Chronic) Ischemic cardiomyopathy (Chronic) CAD (coronary artery disease) (Chronic) Systolic CHF (Chronic) Hypothyroidism (Chronic) PAF (paroxysmal atrial fibrillation) (Chronic) CKD (chronic kidney disease), stage III (Chronic) Anxiety and depression (Chronic) Rheumatoid arthritis (Chronic) You will use the following diet at home:: Cardiac Your food should be the consistency of: Regular Your liquids should be the consistency of: Regular/Thin Discharge Activity: Return to Normal Activity Weight Bearing Status: Weight bearing as tolerated Call your doctor if you observe: Fever of 101 or Higher, Shortness of breath, Dizziness, Fainting spells, Swelling in the ankles Instructions: Acute Kidney Failure Additional Instructions: to have follow up BMP in 3-4 days to check potassium level Allergies/Adverse Reactions: Allergies Penicillins [PCN] Allergy (Verified 07/22/20 15:44) Hives Medications to take at Discharge Abatacept [Orencia] 500 mg IV X1 02/25/16 Aspirin [Aspirin, Baby] 81 mg PO DAILY@79902/25/16 Calcium Carbonate/Vitamin D3 [Caltrate 600 Plus D3 Tablet] 1 each PO BID 02/25/16 Citalopram [Celexa] 20 mg PO DAILY 02/25/16 Ferrous Sulfate 325 mg PO DAILY@79902/25/16 Folic Acid 1 mg PO DAILY@79902/25/16 Gabapentin [Neurontin] 100 mg PO BIDCM 02/25/16 Metoprolol(XL)Succ [Toprol Xl (Beta Mariela)] 25 mg PO DAILY 02/25/16 Nitroglycerin (INPATIENT USE) [Nitrostat] 0.4 mg SUBLINGUAL Q5M PRN 02/25/16 Levothyroxine [Synthroid] 100 mcg PO DAILY 02/26/16 Apixaban [Eliquis] 2.5 mg PO BID 07/22/20 Furosemide [Lasix] 20 mg PO MOWEFR 07/22/20 Gabapentin [Neurontin] 300 mg PO QHS 07/22/20 Isosorbide Mononitrate [Imdur] 120 mg PO DAILY 07/22/20 Lisinopril [Zestril] 2.5 mg PO DAILY 07/22/20 Lovastatin 20 mg PO QHS 07/22/20 Potassium Chloride [Klor-Con M10] 10 meq PO MOWEFR 07/22/20 Prednisone 5 mg PO BID 07/22/20 Sacubitril/Valsartan 24/26 mg [Entresto 24 mg-26 mg Tablet] 1 tab PO BID 07/22/20 Smz/Tmp Ds [Bactrim Ds] 1 tab PO BID 07/22/20 metroNIDAZOLE [Flagyl] 500 mg PO TID 07/22/20 traMADol [Ultram] 100 mg PO Q6H PRN PRN 07/22/20 Primary Care Physician: Matilde Keller MD [Primary Care Provider] - Please follow up with your Primary Care Physician in: 1-2 weeks Test Results: Test results from this visit will be discussed in further detail at your follow- up appointment, if applicable. Proposed Discharge Date: 07/24/20
--- NOTE | 2020-07-24 14:16 | DS.PCM_ITS ---
Discharge Date and Diagnosis - Problem List Patient Problems: Active and Suspected Problems LES (acute kidney injury) (Acute) Date of Admission: 07/22/20 Date of Discharge: 07/24/20 - Primary Discharge Diagnosis Acute Problems: Active Problems LES (acute kidney injury) (Acute) - Secondary Discharge Diagnosis Chronic Problems: Chronic Problems Hypertension (Chronic) Hyperlipidemia (Chronic) Chronic anemia (Chronic) Ischemic cardiomyopathy (Chronic) CAD (coronary artery disease) (Chronic) Systolic CHF (Chronic) Hypothyroidism (Chronic) PAF (paroxysmal atrial fibrillation) (Chronic) CKD (chronic kidney disease), stage III (Chronic) Anxiety and depression (Chronic) Rheumatoid arthritis (Chronic) Hospital Course and Treatment Imaging Results: Diagnostic Data Brain CT 07/22/20 16:26 IMPRESSION: Chronic involutional changes of the brain. No acute hemorrhage Electronically Signed: Israel Blanco MD at 17:28 EST , Service support , Chest X-Ray 07/23/20 05:55 IMPRESSION: Stable minimal increased linear markings at the left lung base suggestive of scarring and/or atelectasis. Electronically Signed: Darrin Jones MD at 9:24 EST , Service support , Operations: None Procedures: None Summary of Care Provided: The patient is a 84 year old F with a PMH as outlined who was admitted with a complaint of weakness and hypotension. She was recently admitted at [facility] for diverticulitis and states after she was discharged home he started having diarrhea and felt weak. She states she received significant amount of fluid was at [facility] and thinks she had an 8 pound weight gain after she was discharged. She also complained of shortness of breath which worsened with exertion. She had been having diarrhea and states she fell at home prior to admission. She went see her PCP on the day of admission and was noted to be hypotensive. Orthostatics were positive. CT of the brain was negative for any acute intracranial pathology and chest x-ray also showed no acute findings. She was admitted to be managed for debility due to mechanical fall as well as LES on CKD 3. She was hydrated with IV fluids. Skull therapy was also consulted. Creatinine trended down gradually and was 1.48 at time of discharge. Patient was also able to ambulate with a walker. She remained stable and was discharged on 07/24/2020. Of note, potassium on day of discharge was 5.2 when she was given Kayexalate before discharge. She is follow-up with her primary care doctor in 3 to 4 days for creatinine to be checked as well as potassium. Patient seen and examined prior to discharge. She had no complaints and felt well. Review of systems otherwise negative. Labs and vitals reviewed. Home medication reviewed and reconciled. [] General: Alert, Oriented x3, Cooperative HEENT: Atraumatic, PERRLA, EOMI, Normocephalic Oral: Moist Mucosa Neck: Supple, No JVD, Negative Carotid Bruits Lungs: Clear to auscultation, Normal air movement, No rhonchi, No wheeze, No rales Cardiovascular: Regular rate, Regular Rhythm, Normal S1, Normal S2, No murmurs Abdomen: Bowel Sounds Present, Soft, Non Tender, Non-Distended, No Hepato- splenomegaly Extremities: No clubbing, No cyanosis, No edema, Capillary Refill Less than 3 Seconds Skin: - - periorbital bruising due to mechanical fall, which is resolving. Musculoskeletal: No Tenderness to Palpation of Joints or Extremities Lymphatic: No Cervical, Supraclavicular, or Inguinal Adenopathy Neurological: Cranial nerves II-XII grossly intact, Neuro grossly intact, Motor Exam 5/5 strength throughout Psych/Mental Status: Normal Affect, Appropriate, Alert and oriented to time, place, person, mood and affect Plan is for discharge home today. Patient Problems: Active and Suspected Problems LES (acute kidney injury) (Acute) - Physical Exam Vitals/I&O's: Vital Signs Temp Pulse Resp BP Pulse Ox 98.2 F 72 18 140/71 H 96 07/24/20 09:07/24/20 10:59 07/24/20 09:29 07/24/20 09:29 07/24/20 09:29 Oxygen Delivery Method Room Air Weight: 203 lb 14.841 oz Body Mass Index (BMI) 31.8 Intake and Output for Last 24 Hours 07/22/20 07/23/20 07/24/20 23:59 23:59 23:59 Intake Total 230 / 230 3507.34 / 3507.34 1498.33 / 1498.33 Balance 230 / 230 3507.34 / 3507.34 1498.33 / 1498.33 Microbiology Past 72 Hours 07/24/20 02:30 Stool C. difficile DNA Amplification - Final 07/22/20 18:45 Urine, Clean Catch Urine Culture - Preliminary Culture exhibits no growth. 07/22/20 17:25 Mucosa - Nose SARS-CoV-2 Antigen (Rapid) - Final Laboratory Results 07/24/20 08:31: WBC 6.8, RBC 3.05 L, Hgb 9.7 L, Hct 30.4 L, MCV 99.7 H, MCH 31.8, MCHC 31.9 L, RDW Std Deviation 55.7 H, RDW Coeff of Christiano 15.1 H, Plt Count 143 L, MPV 11.1, Immature Gran % (Auto) 0.600, Neut % (Auto) 60.2, Lymph % (Auto) 29.9, [place] % (Auto) 8.0, Eos % (Auto) 0.9, Baso % (Auto) 0.4, Absolute Neuts (auto) 4.1, Absolute Lymphs (auto) 2.02, Nucleated RBC % 0 07/24/20 08:31: Sodium 143, Potassium 5.2 H, Chloride 114 H, Carbon Dioxide 25.0, Anion Gap 4 L, BUN 25 H, Creatinine 1.48 H, Estim Creat Clear Calc 27.52, Est GFR (MDRD) Af Amer 43 L, Est GFR (MDRD) Non-Af 36 L, BUN/Creatinine Ratio 16.9, Glucose 98, Calcium 8.9 Current Medications Acetaminophen (Acetaminophen 325 Mg Tablet) 650 mg PO Q6H PRN PRN PRN Reason: Pain Score 1-10/Temp > 100.7 F Last Admin: 07/23/20 23:14 Dose: 650 mg Documented by: Al Hydroxide/Mg Hydroxide (Mag Hydrox/Al Hydrox/Simeth 30 Ml Udc) 30 ml PO Q6H PRN PRN PRN Reason: Gastric Burning Albuterol Sulfate (Albuterol 2.5 Mg/3 Ml Vial.Neb.) 2.5 mg INHALATION Q2H PRN PRN PRN Reason: Dyspnea, wheezing Apixaban (Apixaban 2.5 Mg Tablet) 2.5 mg PO BID [facility] Last Admin: 07/24/20 07:51 Dose: 2.5 mg Documented by: Aspirin (Aspirin 81 Mg Tab.Chew) 81 mg PO DAILY@0800 [facility] Last Admin: 07/24/20 07:50 Dose: 81 mg Documented by: Atorvastatin Calcium (Atorvastatin Calcium 10 Mg Tablet) 5 mg PO QHS [facility] Last Admin: 07/23/20 21:34 Dose: 5 mg Documented by: Calcium/Vitamin D (Calcium Carb/Vitamin D 1 Tablet Tablet) 1 tablet PO BID [facility] Last Admin: 07/24/20 07:50 Dose: 1 tablet Documented by: Ferrous Sulfate (Ferrous Sulfate 325 Mg Tablet) 325 mg PO DAILY@0800 [facility] Last Admin: 07/24/20 07:51 Dose: 325 mg Documented by: Folic Acid (Folic Acid 1 Mg Tablet) 1 mg PO DAILY@0800 [facility] Last Admin: 07/24/20 07:50 Dose: 1 mg Documented by: Gabapentin (Gabapentin 100 Mg Capsule) 100 mg PO BIDCM [facility] Last Admin: 07/24/20 07:50 Dose: 100 mg Documented by: Guaifenesin (Guaifenesin 10 Ml Udc (200mg/10ml)) 20 ml PO Q4H PRN PRN PRN Reason: COUGH Hydralazine HCl (Hydralazine 20 Mg/Ml Vial) 10 mg IV Q4H PRN PRN PRN Reason: SBP > 160 Ceftriaxone Sodium 2 gm/ (Sodium Chloride) 50 mls @ 100 mls/hr IV Q24 [facility] Last Infusion: 07/24/20 09:50 Dose: Infused Documented by: Sodium Chloride () 1,000 mls @ 100 mls/hr IV .Q10H [facility] Last Infusion: 07/24/20 09:50 Dose: 100 mls/hr Documented by: Isosorbide Mononitrate (Isosorbide Mononitrate 120 Mg Tablet) 120 mg PO DAILY [facility] Last Admin: 07/24/20 07:51 Dose: 120 mg Documented by: Levothyroxine Sodium (Levothyroxine 100 Mcg Tablet) 100 mcg PO DAILY@0600 [facility] Last Admin: 07/24/20 05:55 Dose: 100 mcg Documented by: Melatonin (Melatonin 3 Mg Tablet) 3 mg PO QHS PRN PRN PRN Reason: INSOMNIA Last Admin: 07/23/20 21:34 Dose: 3 mg Documented by: Metoprolol Succinate (Metoprolol(Xl)Succ 25 Mg Tablet) 25 mg PO DAILY [facility] Last Admin: 07/24/20 07:51 Dose: 25 mg Documented by: Metronidazole (Metronidazole 500 Mg Tablet) 500 mg PO TID [facility] Last Admin: 07/24/20 05:55 Dose: 500 mg Documented by: Nitroglycerin (Nitroglycerin (Inpatient Use) 0.4 Mg Tab.Subl) 0.4 mg SUBLINGUAL Q5M PRN PRN Reason: CHEST Ondansetron HCl (Ondansetron 4 Mg/2 Ml Vial) 4 mg IV Q8H PRN PRN PRN Reason: NAUSEA/VOMITING Prednisone (Prednisone 5 Mg Tablet) 5 mg PO BIDCM [facility] Last Admin: 07/24/20 07:50 Dose: 5 mg Documented by: Prochlorperazine Edisylate (Prochlorperazine 10 Mg/2 Ml Vial) 5 mg IV Q4H PRN PRN PRN Reason: Breakthrough Nausea/Vomiting Sodium Chloride (0.9% Saline Lock 10 Ml Syringe) 10 - 40 ml IV UD PRN PRN Reason: SALINE FLUSH Throat Lozenges (Benzocaine/Menthol 1 Lozenge) 1 lozenge MUCOUS MEM Q2H PRN PRN PRN Reason: SORE THROAT Tramadol HCl (Tramadol 50 Mg Tablet) 50 mg PO Q6H PRN PRN PRN Reason: Pain 1-10 or Fever Last Admin: 07/24/20 02:33 Dose: 50 mg Documented by: Discharge Diet: Low fat/ Low Cholesterol Discharge Activity: Return to Normal Activity Weight Bearing Status: Weight bearing as tolerated Call your doctor if you observe: Fever of 101 or Higher, Shortness of breath, Dizziness, Fainting spells, Swelling in the ankles Home Medications: Medications to take at Discharge Abatacept [Orencia] 500 mg IV X1 02/25/16 Aspirin [Aspirin, Baby] 81 mg PO DAILY@79902/25/16 Calcium Carbonate/Vitamin D3 [Caltrate 600 Plus D3 Tablet] 1 each PO BID 02/25/16 Citalopram [Celexa] 20 mg PO DAILY 02/25/16 Ferrous Sulfate 325 mg PO DAILY@79902/25/16 Folic Acid 1 mg PO DAILY@0800 09/01/16 Gabapentin [Neurontin] 100 mg PO BIDCM 02/25/16 Metoprolol(XL)Succ [Toprol Xl (Beta Mariela)] 25 mg PO DAILY 02/25/16 Nitroglycerin (INPATIENT USE) [Nitrostat] 0.4 mg SUBLINGUAL Q5M PRN 02/25/16 Levothyroxine [Synthroid] 100 mcg PO DAILY 02/26/16 Apixaban [Eliquis] 2.5 mg PO BID 07/22/20 Furosemide [Lasix] 20 mg PO MOWEFR 07/22/20 Gabapentin [Neurontin] 300 mg PO QHS 07/22/20 Isosorbide Mononitrate [Imdur] 120 mg PO DAILY 07/22/20 Lisinopril [Zestril] 2.5 mg PO DAILY 07/22/20 Lovastatin 20 mg PO QHS 07/22/20 Potassium Chloride [Klor-Con M10] 10 meq PO MOWEFR 07/22/20 Prednisone 5 mg PO BID 07/22/20 Sacubitril/Valsartan 24/26 mg [Entresto 24 mg-26 mg Tablet] 1 tab PO BID 07/22/20 Smz/Tmp Ds [Bactrim Ds] 1 tab PO BID 07/22/20 metroNIDAZOLE [Flagyl] 500 mg PO TID 07/22/20 traMADol [Ultram] 100 mg PO Q6H PRN PRN 07/22/20 Primary Care Physician: Matilde Keller MD [Primary Care Provider] - Please follow up with your Primary Care Physician in: 1-2 weeks Patient Instructions: Acute Kidney Failure Disposition: Home Minutes spent on discharge:: 35 Patient Condition:: Stable Medical Necessity - Tobacco Use Smoking Status: Never smoker Tobacco Use: Non-smoker Meaningful Use Info Meaningful Use Diagnoses (Choose all that apply): None applicable Inpatient E&M: 19920 Disch Hosp
--- NOTE | 2020-07-27 15:06 | CASEMGMT ---
MARJORIE CHAPMAN Discharge F/U Phone Call LACE: 10 Strata: 3 Discharge date: 07/24/20 Call date: 07/27/20 Call time: [id number] Admission dx: LES, mechanical falls, recent diverticulitis Pt states is doing 'ok' since home. Pt states her stools are still loose but no longer watery. Pt states has been keeping fluids down. Pt states no questions regarding discharge instructions/medications at this time. Pt states plans to f/u with PCP but did not have appt made prior to discharge. Pt states no suggestions for [facility] at this time. Pt states has been using her WW at home for stability. Pt voices no further questions/concerns/needs at this time and thanks MARJORIE CHAPMAN for call at this time. S[place]en MARJORIE CHAPMAN
== END 2020-07-24 15:24 | disposition home or self-care (01) | DRG 683 ==
LOC: ED 18:30 → PCU 19:55
PROVIDERS: Admitting Provider Family Medicine; Emergency Provider Emergency Medicine; PCP Internal Medicine; Visit Provider Student in an Organized Health Care Education/Training Program
DX: N17.9 Acute kidney failure, unspecified (principal); K57.92 Diverticulitis of intestine, part unspecified, without perforation or abscess without bleeding; I13.0 Hypertensive heart and chronic kidney disease with heart failure and stage 1 through stage 4 chronic kidney disease, or unspecified chronic kidney disease; I50.22 Chronic systolic (congestive) heart failure; N18.30 Chronic kidney disease, stage 3 unspecified; E86.0 Dehydration; D53.9 Nutritional anemia, unspecified; I25.10 Atherosclerotic heart disease of native coronary artery without angina pectoris; L40.50 Arthropathic psoriasis, unspecified; I48.0 Paroxysmal atrial fibrillation; E78.5 Hyperlipidemia, unspecified; E03.9 Hypothyroidism, unspecified; I25.5 Ischemic cardiomyopathy; M06.9 Rheumatoid arthritis, unspecified; F32.9 Major depressive disorder, single episode, unspecified; F41.9 Anxiety disorder, unspecified; W01.0XXA Fall on same level from slipping, tripping and stumbling without subsequent striking against object, initial encounter; Y92.009 Unspecified place in unspecified non-institutional (private) residence as the place of occurrence of the external cause; Z95.5 Presence of coronary angioplasty implant and graft; Z79.01 Long term (current) use of anticoagulants; Z79.890 Hormone replacement therapy; Z79.899 Other long term (current) drug therapy; Z82.49 Family history of ischemic heart disease and other diseases of the circulatory system; Z86.16 Personal history of COVID-19; Z95.810 Presence of automatic (implantable) cardiac defibrillator; D69.6 Thrombocytopenia, unspecified
CPT/HCPCS: 36415; 70450; 71045; 71046; 80048; 80053; 81001; 82570; 83735; 83880; 84300; 84484; 85025; 85610; 87086; 87088; 87426; 87493; 93005; 97110; 97162; 97166; 97530; 97535; 99251; 99285; J7030; A4216; G0463; J0696

== ENCOUNTER 2021-05-21 18:00 | Inpatient (IN) | payer MEDICARE, OTHER, SELFPAY ==
[2021-05-21] VITALS (7 sets, daily range): BP systolic 84–130; BP diastolic 47–104; PULSE 73–88; RESP 18–20; TEMP 36.9–37.5; O2SAT 92–99; BMI 33.2; BMI 33.3
[2021-05-21 19:08] LABS: Absolute Neutrophil Count 4.1 X10^3/uL (2.0-7.7); Basophil# 0.02 X10^3/uL; Basophil% 0.3 % (0-1); Eosinophils% 1.3 % (0-5); Hematocrit 31.1 % (37-47); Hemoglobin 9.8 g/dL (12.0-15.0); Lymphocyte % 34.1 % (19-41); Mean Corp Hgb Conc 31.5 g/dL (32-36); Mean Corpuscular Hgb 31.4 pg (27.0-32.0); Mean Corpuscular Volume 99.7 fL (81-99); Mean Platelet Vol. 12.9 fl (6.2-12.0); Monocyte# 0.79 X10^3/uL; Monocyte% 10.4 % (0-10); NRBC Flagged by Analyzer 0 % (0-5); Neutrophil # 4.09 X10^3/uL (2.7-7.7); Neutrophil % 53.5 % (47-70); Platelet Count 110 K/mm3 (150-450); RBC Distribution Width CV 15.4 % (11.6-14.6); Red Blood Count 3.12 M/mm3 (4.2-5.4); White Blood Count 7.6 K/mm3 (4.4-11.0)
[2021-05-21 19:33] LABS: Mucous, Urine 0 SEEN /hpf (<or=2+)
[2021-05-21 19:37] LABS: Anion Gap 8 (5-15); BUN 53 mg/dL (7-18); BUN/Creat Ratio 16.4 RATIO (10-20); Calcium,Total 9.1 mg/dL (8.5-10.1); Chloride 104 mmol/L (98-107); Creatinine, Serum 3.23 mg/dL (0.55-1.02); EST Glomerular Filtration Rate 15 mL/min (>60); Est Glom Filt Rate - Afr Amer 18 mL/min (>60); Estimated Creatinine Clearance 12.85 ml/min; Glucose 97 mg/dL (74-106); Magnesium 1.9 mg/dL (1.6-2.6); Potassium 5.9 mmol/L (3.5-5.1); Sodium Level 136 mmol/L (136-145)
[2021-05-21 19:53] LABS: Color, Urine Yellow (Yellow); Glucose, Dipstick Normal (Normal); Ketone-Dipstick 5 mg/dl (Negative); Leukocyte Esterase-Dipstick 25 /ul (Negative); Nitrite-Dipstick Negative (Negative); Occult Blood-Urine 150 /ul (Negative); Protein-Dipstick 30 mg/dl (Negative); Specific Gravity, Urine 1.025 (1.002-1.030); Urine Bilirubin Dipstick Negative (Negative); Urine Clarity Clear (Clear); Urine Urobilinogen 1 mg/dl (Normal)
[2021-05-21 20:00] LABS: Lactic Acid 1.1 mmol/L (0.4-1.9)
--- NOTE | 2021-05-21 20:00 | RAD_ITS ---
INDICATION: cough EXAMINATION/TECHNIQUE: X-RAY - XR Chest 1 View COMPARISON: Chest x-ray 07/23/2020 FINDINGS: LINES/DEVICES: Dual-lead, left chest pacing device with leads projecting over the right atrium and right ventricle. LUNGS: Symmetric, normal lung volumes without air trapping. Thin linear opacities left costophrenic angle region are unchanged likely representing scarring. Lungs otherwise clear with no airspace disease or abnormal interstitial pattern. No nodule or mass. No pleural effusion or pneumothorax. MEDIASTINUM AND CARDIOVASCULAR STRUCTURES: Coronary artery intimal calcifications and left main coronary artery stent. Normal size and contour cardiomediastinal silhouette. BONES AND SOFT TISSUES: Advanced degenerative changes bilateral glenohumeral joints. Evidence of remote distal clavicle fracture with persistent smooth margined corticated lucency. RAD/Chest 1 View (Portable) IMPRESSION: 1. No evidence of acute cardiopulmonary disease. Chronic findings as above. Electronically Signed: Tommy Clements DO at 20:40 EST Tel , Service support ,
[2021-05-21 20:01] LABS: Red Blood Cells-Urine 0-5 SEEN /hpf (0-5); White Blood Cells 0-5 SEEN /hpf (0-5)
[2021-05-21 20:02] LABS: Bacteria 1+ /hpf (None Seen); Squamous Epithelial Cells - UA 0-5 SEEN /hpf (5-10)
--- NOTE | 2021-05-21 20:19 | EKG12_ITS ---
Test Reason : DYSRHYTHMIA Blood Pressure : / mmHG Vent. Rate : 077 BPM Atrial Rate : 077 BPM P-R Int : 160 ms QRS Dur : 084 ms QT Int : 418 ms P-R-T Axes : 046 039 064 degrees QTc Int : 473 ms Normal sinus rhythm with sinus arrhythmia Normal ECG Confirmed by WESLEY HUYNH, CARLOS ALBERTO ([id number]), copy editor SHAUNNA RASCON ([id number]) on 05/25/2021 8:46:09 AM Referred By: WILLIAM Confirmed By:CARLOS ALBERTO OLSON MD
[2021-05-21] MEDS: Acetaminophen 500 MG Tablet 1000 MG PO (20:40)
[2021-05-21] MEDS: Dextrose 50%-Water 25 GM/50 ML DISP.SYRIN IV (21:05)
[2021-05-21] MEDS: Insulin Lispro 10 UNIT in Syringe 0 ML 6 UNIT IV (21:07)
[2021-05-21] MEDS: Sodium Bicarbonate 8.4% 50 ML Syringe 50 MEQ IV (21:12)
[2021-05-21] MEDS: Ceftriaxone 1 GM/50 ML BAG IV (21:15)
--- NOTE | 2021-05-21 21:55 | HP.PCM.HOS_ITS ---
HPI - General General Date of Admission: 05/21/21 HPI Narrative ALFONZO MILLS, is a 85 F with a significant history of ischemic cardiomyopathy; rheumatoid arthritis; and paroxysmal A. fib who presents to emergency department with persistent difficulty urination and decreased urine output for the past 2 days. Her daughter reports that patient has been dribbling and she had only little urine output. Patient denies any pain with urination. At the emergent department with straight cath about 25 mL of urine was obtained. Also patient reports pain in her bilateral legs and swelling of her bilateral legs that has re-occurred. With patient's symptoms patient called her PCP and she was made to resume taking her Lasix. She took 1 dose Lasix a day before presentation and 2 doses of Lasix on the day of her presentation. Patient's grandson is having a alevism on Monday05/23/2021 and patient is hoping to be able to go for the baptismal ceremony. [facility] Medical History CAD (coronary artery disease) Chronic anemia CKD (chronic kidney disease), stage III Hyperlipidemia Hypertension Hypothyroidism Ischemic cardiomyopathy PAF (paroxysmal atrial fibrillation) Rheumatoid arthritis Systolic CHF Home Medications Orencia (with maltose) 500 mg IV X1 02/25/16 [History Last Taken Unknown] aspirin 81 mg PO DAILY@0800 02/25/16 [History Last Taken Unknown] calcium carbonate-vitamin D3 [Caltrate with Vitamin D3] 1 ea PO BID 02/25/16 [History Last Taken 07/22/20] citalopram 20 mg PO BID 02/25/16 [History Last Taken 07/22/20] folic acid 1 mg PO DAILY@0800 02/25/16 [History Last Taken 07/22/20] gabapentin 300 mg PO BIDCM 02/25/16 [History Last Taken 07/22/20] metoprolol succinate 25 mg PO DAILY 02/25/16 [History Last Taken 07/22/20] nitroglycerin 0.4 mg SUBLINGUAL Q5M PRN 02/25/16 [History Last Taken Unknown] levothyroxine 100 mcg PO DAILY 02/26/16 [History Last Taken 07/22/20] apixaban 2.5 mg PO BID 07/22/20 [History Last Taken 07/22/20] furosemide 20 mg PO DAILY PRN 07/22/20 [History Last Taken 07/22/20] isosorbide mononitrate 60 mg PO DAILY 07/22/20 [History Last Taken Unknown] lisinopril 2.5 mg PO DAILY 07/22/20 [History Last Taken 07/22/20] lovastatin 20 mg PO QHS 07/22/20 [History Last Taken 07/21/20] metronidazole 500 mg PO TID 07/22/20 [History Last Taken 07/22/20] potassium chloride 10 meq PO MOWEFR 07/22/20 [History Last Taken 07/22/20] prednisone 5 mg PO BID 07/22/20 [History Last Taken 07/22/20] sacubitril-valsartan 1 tab PO BID 07/22/20 [History Last Taken 07/22/20] sulfamethoxazole-trimethoprim 1 tab PO BID 07/22/20 [History Last Taken 07/22/20] tramadol 100 mg PO Q6H PRN PRN 07/22/20 [History Last Taken Unknown] Allergy/AdvReac Type Severity Reaction Status Date / Time Penicillins [PCN] Allergy Hives Verified 05/21/21 18:04 Family History Other Cancer Heart disease High cholesterol Hypertension Surgical History H/O hemorrhoidectomy History of permanent cardiac pacemaker placement History of total replacement of right ankle Hx of cholecystectomy S/P bilateral cataract extraction Stented coronary artery Social History Smoking Status: Never smoker ROS ROS Narrative Constitutional: Reports fatigue and weakness. Denies fever, chills, anorexia Eyes: Denies blurry vision, change in eye color, change in vision, discharge from eye(s), double vision, erythema, eye pain, loss of vision or other HEENT: Denies abnormal hearing, dysphagia, ear pain, epistaxis, headache(s), hearing loss, nasal congestion, nasal discharge, post nasal drip, sinus pressure, sore throat or other Cardiovascular: Denies chest pain or palpitations. Denies dyspnea on exertion, orthopnea and paroxysmal nocturnal dyspnea Respiratory/Chest: Denies cough, excessive phlegm production, shortness of breath with exertion and wheezing Gastrointestinal: Denies abdominal pain, coffee ground emesis, constipation, diarrhea, dyspepsia, hematemesis, hematochezia, loose stools, melena, nausea, vomiting or other Genitourinary: Denies burning urination, difficulty urinating, dysuria, hematuria, nocturia, urinary frequency, urinary hesitancy, urinary incontinence, urinary urgency or other Musculoskeletal: Reports bilateral legs and feet pain. Reports swelling of bilateral lower extremities. Neurologic: Denies abnormal gait, abnormal speech, confusion, disequilibrium, dizziness, focal weakness, headache(s), numbness, paresthesias, seizure-like activity, seizures, syncope, tingling, tremor(s) or other Psychiatric: Denies anxiety, depression, homicidal ideation, suicidal ideation or other Endocrinology: Denies change in body appearance, cold intolerance, excessive sweating, heat intolerance, polydipsia, polyuria or other Hematologic/Lymphatic: Denies anemia, easy bleeding, easy bruising, lymphadenopathy or other Integumentary: Denies rashes Allergic/Immunologic: Denies rhinitis, hives, eczema, asthma or other Vital Signs Vital Signs Vital Signs: 05/21/21 18:00 05/21/21 18:01 05/21/21 19:59 Temperature 99.5 F H 99.5 F H Temperature Source Oral Oral Pulse Rate 76 76 82 Respiratory Rate 20 H 20 H 18 Blood Pressure 130/104 H 130/104 H 84/47 L Blood Pressure Mean 112 112 59 Pulse Ox 99 99 96 Oxygen Delivery Method Room Air Room Air Room Air 05/21/21 21:04 Temperature Temperature Source Pulse Rate 88 Respiratory Rate 18 Blood Pressure 96/59 L Blood Pressure Mean 71 Pulse Ox 97 Oxygen Delivery Method Room Air Weight Weight: 99.1 kg Body Mass Index (BMI) 33.2 Physical Exam Narrative Physical exam: General: Well-nourished, well-developed. Head: Normocephalic, atraumatic, no tenderness Eyes: PERRLA, EOMI ENT, no trauma, dry mucous membranes, no rhinorrhea Neck: Nontender, full range of motion, no spinal tenderness, deformities, step- off CVS: Regular rate and rhythm. S1-S2 present. No murmur, gallop or rub. Respiratory : clear to auscultation bilaterally, chest wall nontender, no wheezing Abdomen: Soft, nontender, nondistended, normal bowel sounds, no masses : Deferred Back: Nontender, no CVA tenderness, no midline spinal tenderness, deformities. Extremities: 3+ edema bilateral lower legs and feet. Skin: Ulcers on right cheek and left forearm (attributed to cryosurgery for cancer. ). Mild erythema bilateral legs. Neuro: Alert, oriented, cranial nerves II through XII grossly intact. Psychiatry: Normal mood. Normal affect. Not depressed. Not anxious. Results Lab / Micro Data Result Diagrams: 05/21/21 18:13 05/21/21 18:13 Labs: Laboratory Results - last 24 hr 05/21/21 18:13: WBC 7.6, RBC 3.12 L, Hgb 9.8 L, Hct 31.1 L, MCV 99.7 H, MCH 31.4, MCHC 31.5 L, RDW Std Deviation 56.0 H, RDW Coeff of Christiano 15.4 H, Plt Count 110 L, MPV 12.9 H, Immature Gran % (Auto) 0.400, Neut % (Auto) 53.5, Lymph % (Auto) 34.1, [place] % (Auto) 10.4 H, Eos % (Auto) 1.3, Baso % (Auto) 0.3, Absolute Neuts (auto) 4.1, Absolute Lymphs (auto) 2.60, Nucleated RBC % 0 05/21/21 18:13: Sodium 136, Potassium 5.9 H, Chloride 104, Carbon Dioxide 24.0, Anion Gap 8, BUN 53 H, Creatinine 3.23 H, Estim Creat Clear Calc 12.85, Est GFR (MDRD) Af Amer 18 L, Est GFR (MDRD) Non-Af 15 L, BUN/Creatinine Ratio 16.4, Glucose 97, Calcium 9.1, Magnesium 1.9 05/21/21 18:13: B-Natriuretic Peptide 107.0 H 05/21/21 19:20: Lactic Acid 1.1 05/21/21 19:22: Urine Color Yellow, Urine Clarity Clear, Urine pH 5.0, Ur Specific [place] 1.025, Urine Protein 30 H, Urine Glucose (UA) Normal, Urine Ketones 5 H, Urine Occult Blood 150 H, Urine Nitrite Negative, Urine Bilirubin Negative, Urine Urobilinogen 1 H, Ur Leukocyte Esterase 25 H, Urine RBC 0-5 SEEN, Urine WBC 0-5 SEEN, Ur Squamous Epith Cells 0-5 SEEN, Urine Bacteria 1+, Urine Mucus 0 SEEN Radiology Impression Chest X-Ray 05/21/21 20:00 IMPRESSION: 1. No evidence of acute cardiopulmonary disease. Chronic findings as above. Electronically Signed: Tommy Clements, DO at 20:40 EST Tel , Service support , Assessment & Plan Assessment/Plan (1) Acute on chronic kidney failure: QUALIFIERS: Acute renal failure type: unspecified Chronic kidney disease stage: stage 4 (severe) Qualified Code(s): N17.9 - Acute kidney failure, unspecified; N18.4 - Chronic kidney disease, stage 4 (severe) (2) Acute hyperkalemia: PLAN: LES on CKD stage IV On presentation creatinine was 3.23. Her creatinine on 07/24/2020 was 1.48 and on 07/23/2020 it was at 2.41. And on 07/22/2020 her creatinine was 3.41. CKD likely secondary to heart disease and hypertension. Chest x-ray independently interpreted showed no acute cardiopulmonary process. Pacemaker in place. I agree with radiologist interpretation above. IV fluid bolus given the emergency department. Gentle IV hydration ordered. Per review of chart patient was admitted in hospital on 07/22/2020. Per H&P at that time patient had a fluid gain after hospitalization at [facility] where she received significant IV fluids. Trend BMP. Avoid nephrotoxic's. Patient may be heading towards end-stage renal disease and depending upon the goals of care upon discharge consider nephrology referral if patient has not already seen one. Patient's typically go to [facility] where her chef kitchen manager is. Unclear whether she also sees a brake repair supervisor. Hyperkalemia Potassium presentation was 5.9. EKG showed sinus arrhythmia. Patient was given calcium gluconate, insulin, and bicarbonate. Anticipate that with hydration her potassium will decrease. We will hold off Kayexalate at this time. Trend BMP. Abnormal urinalysis And her urinalysis showed urine occult blood of 150; urine protein of 30. Urine requested Estrace of 25. Urine nitrite was negative. Urine squamous cell was normal at 0.5. Urine bacteria was 1+. Ceftriaxone x1 was ordered emergency department. Urine culture was ordered emergency department. Review of white count showed white count of 7.6 with monocytosis Patient symptoms likely is from dehydration and not UTI. We will hold off further antibiotics at this time. History of heart failure From review of records patient was previously on Entresto. Also review of records show that patient is on metoprolol. Likely systolic heart failure. We will hold off Lasix at this time. Admit to intensive care unit for careful monitoring. Daily weight and strict intake and output. Elevate bilateral lower legs. Family refused Jaden wrap to legs. Lidoderm to bilateral legs. Hypotension Likely secondary to dehydration. Hold all home antihypertensive medications. Trend blood pressures. Proximal A. fib With hypotension hold metoprolol. Apixaban continued. Admit to progressive care unit on telemetry. Neuropathy On gabapentin 300 mg p.o. twice daily in the setting of LES will decrease dose to 100 mg twice daily. Chronic pancytopenia Review of CBC shows chronic anemia and thrombocytopenia. Thrombocytopenia is worse compared to baseline. Trend CBC. DVT prophylaxis On apixaban that will be continued. Charges/Coding Visit Charges Inpatient E&M: 12397 Init Hosp L3
--- NOTE | 2021-05-21 21:56 | EDS_ITS ---
HPI History of Present Illness Chief Complaint: Complaint Narrative Narrative: Patient is an 85-year-old female with past medical history of congestive heart failure who takes Lasix as well as paroxysmal A. fib with a pacemaker defibrillator placed. She also reports that she has had bouts of acute kidney injury in the past. She states that she has been having decreased urine output for the past few days and is noticed some increased generalized weakness and with concern she was progressing back to kidney damage was brought into the hospital for evaluation PFSH PFS Home Medications abatacept (with maltose) [Orencia (with maltose)] 500 mg IV X1 02/25/16 [History Last Taken Unknown] aspirin 81 mg PO DAILY@0800 02/25/16 [History Last Taken Unknown] calcium carbonate-vitamin D3 [Caltrate with Vitamin D3] 1 ea PO BID 02/25/16 [History Last Taken 07/22/20] citalopram 20 mg PO DAILY 02/25/16 [History Last Taken 07/22/20] ferrous sulfate 325 mg PO DAILY@0800 02/25/16 [History Last Taken 07/22/20] folic acid 1 mg PO DAILY@0800 02/25/16 [History Last Taken 07/22/20] gabapentin 100 mg PO BIDCM 02/25/16 [History Last Taken 07/22/20] metoprolol succinate 25 mg PO DAILY 02/25/16 [History Last Taken 07/22/20] nitroglycerin 0.4 mg SUBLINGUAL Q5M PRN 02/25/16 [History Last Taken Unknown] levothyroxine 100 mcg PO DAILY 02/26/16 [History Last Taken 07/22/20] apixaban 2.5 mg PO BID 07/22/20 [History Last Taken 07/22/20] furosemide 20 mg PO MOWEFR 07/22/20 [History Last Taken 07/22/20] gabapentin 300 mg PO QHS 07/22/20 [History Last Taken 07/21/20] isosorbide mononitrate 120 mg PO DAILY 07/22/20 [History Last Taken Unknown] lisinopril 2.5 mg PO DAILY 07/22/20 [History Last Taken 07/22/20] lovastatin 20 mg PO QHS 07/22/20 [History Last Taken 07/21/20] metronidazole 500 mg PO TID 07/22/20 [History Last Taken 07/22/20] potassium chloride 10 meq PO MOWEFR 07/22/20 [History Last Taken 07/22/20] prednisone 5 mg PO BID 07/22/20 [History Last Taken 07/22/20] sacubitril-valsartan 1 tab PO BID 07/22/20 [History Last Taken 07/22/20] sulfamethoxazole-trimethoprim 1 tab PO BID 07/22/20 [History Last Taken 07/22/20] tramadol 100 mg PO Q6H PRN PRN 07/22/20 [History Last Taken Unknown] Allergy/AdvReac Type Severity Reaction Status Date / Time Penicillins [PCN] Allergy Hives Verified 05/21/21 18:04 Social History Smoking Status: Never smoker ROS ROS ED Constitutional Constitutional ED: Denies chills or fever(s) ENT ENT ED: Denies sore throat Cardiovascular Cardiovascular: Denies chest pain Respiratory/Chest Respiratory/Chest: Reports dyspnea; Denies cough Gastrointestinal Gastrointestinal: Denies abdominal pain, diarrhea, nausea or vomiting Genitourinary Genitourinary ED: Denies dysuria Musculoskeletal Musculoskeletal: Reports arthralgias and myalgias Integumentary Denies rash Neurologic Neurologic: Reports weakness; Denies headache(s) Hematologic/Lymphatic Hematologic/Lymphatic: Reports easy bleeding and easy bruising EXAM Physical Exam Const Vital Signs: 05/21/21 18:00 05/21/21 18:01 05/21/21 19:59 Temperature 99.5 F H 99.5 F H Temperature Source Oral Oral Pulse Rate 76 76 82 Respiratory Rate 20 H 20 H 18 Blood Pressure 130/104 H 130/104 H 84/47 L Blood Pressure Mean 112 112 59 Pulse Ox 99 99 96 Oxygen Delivery Method Room Air Room Air Room Air 05/21/21 21:04 Temperature Temperature Source Pulse Rate 88 Respiratory Rate 18 Blood Pressure 96/59 L Blood Pressure Mean 71 Pulse Ox 97 Oxygen Delivery Method Room Air Positive well nourished and well developed General Appearance ED: well developed HEENT Reports dry mucous membranes Mouth ED: Yes dry mucous membranes Mouth: dry mucous membranes Eyes PERRL and EOMs intact bilaterally Neck supple and no JVD Resp normal respiratory effort Resp Narrative: Breath sounds are diminished throughout with faint rhonchi in the bilateral bases but no signs of respiratory distress Cardio regular rate and regular rhythm GI normal to inspection, nondistended, normoactive bowel sounds, non-tender, non- distended and no masses GI Narrative: No obvious distended bladder no pulsatile mass or fluid wave noted Auscultation: normoactive bowel sounds Palpation: soft Extremity Extremity Narrative: Patient has +2 pitting edema to the bilateral lower extremities that is equal and symmetric and chronic per patient Neuro oriented x3 and CN's II-XII intact bilaterally Sensorium / Orientation: alert Psych mental status grossly normal Skin Skin Narrative: Patient has chronic stasis changes to her lower legs but no secondary changes to suggest infection MDM MDM MDM Narrative Medical decision making narrative: Patient presented to the ER afebrile but was hypotensive. Her exam is concerning for dehydration leading to acute kidney injury so basic work-up was obtained. Blood work shows that her baseline creatinine of 1.4 is now elevated at 3.23. She also has hyperkalemia at 5.9. Secondary to the abnormal lab values she was given a liter of fluid and her blood pressure improved. She was also given calcium gluconate sodium bicarbonate insulin and glucose because of the hyperkalemia. Her urine sample did show mild bacteria concerning for UTI and therefore the urine was sent for culture and she was given Rocephin. Chest x-ray revealed no acute pathology and with IV hydration her blood pressure improved. Therefore at this time as she will need for continued IV hydration to correct her acute on chronic kidney injury patient will be kept in the hospital for further care Lab Data Attestation: I reviewed the patient's lab results. Labs: Laboratory Results - last 24 hr 05/21/21 05/21/21 05/21/21 18:13 18:13 18:13 WBC 7.6 RBC 3.12 L Hgb 9.8 L Hct 31.1 L MCV 99.7 H MCH 31.4 MCHC 31.5 L RDW Std Deviation 56.0 H RDW Coeff of Christiano 15.4 H Plt Count 110 L MPV 12.9 H Immature Gran % (Auto) 0.400 Neut % (Auto) 53.5 Lymph % (Auto) 34.1 [place] % (Auto) 10.4 H Eos % (Auto) 1.3 Baso % (Auto) 0.3 Absolute Neuts (auto) 4.1 Absolute Lymphs (auto) 2.60 Nucleated RBC % 0 Sodium 136 Potassium 5.9 H Chloride 104 Carbon Dioxide 24.0 Anion Gap 8 BUN 53 H Creatinine 3.23 H Estim Creat Clear Calc 12.85 Est GFR (MDRD) Af Amer 18 L Est GFR (MDRD) Non-Af 15 L BUN/Creatinine Ratio 16.4 Glucose 97 Lactic Acid Calcium 9.1 Magnesium 1.9 B-Natriuretic Peptide 107.0 H Urine Color Urine Clarity Urine pH Ur Specific [place] Urine Protein Urine Glucose (UA) Urine Ketones Urine Occult Blood Urine Nitrite Urine Bilirubin Urine Urobilinogen Ur Leukocyte Esterase Urine RBC Urine WBC Ur Squamous Epith Cells Urine Bacteria Urine Mucus 05/21/21 05/21/21 19:20 19:22 WBC RBC Hgb Hct MCV MCH MCHC RDW Std Deviation RDW Coeff of Christiano Plt Count MPV Immature Gran % (Auto) Neut % (Auto) Lymph % (Auto) [place] % (Auto) Eos % (Auto) Baso % (Auto) Absolute Neuts (auto) Absolute Lymphs (auto) Nucleated RBC % Sodium Potassium Chloride Carbon Dioxide Anion Gap BUN Creatinine Estim Creat Clear Calc Est GFR (MDRD) Af Amer Est GFR (MDRD) Non-Af BUN/Creatinine Ratio Glucose Lactic Acid 1.1 Calcium Magnesium B-Natriuretic Peptide Urine Color Yellow Urine Clarity Clear Urine pH 5.0 Ur Specific [place] 1.025 Urine Protein 30 H Urine Glucose (UA) Normal Urine Ketones 5 H Urine Occult Blood 150 H Urine Nitrite Negative Urine Bilirubin Negative Urine Urobilinogen 1 H Ur Leukocyte Esterase 25 H Urine RBC 0-5 SEEN Urine WBC 0-5 SEEN Ur Squamous Epith Cells 0-5 SEEN Urine Bacteria 1+ Urine Mucus 0 SEEN Radiography Diagnostic Testing: Clinical Impression(s) from Imaging Studies Chest X-Ray 05/21/21 20:00 IMPRESSION: 1. No evidence of acute cardiopulmonary disease. Chronic findings as above. Electronically Signed: Tommy Clements DO at 20:40 EST Tel , Service support , Discharge Plan Dx/Rx/DC Orders Clinical Impression: Acute on chronic kidney failure, Acute hyperkalemia, UTI (urinary tract infection) Disposition Disposition: [facility]
--- NOTE | 2021-05-21 23:03 | PCS.PANDOC ---
PANDEMIC DOCUMENTATION INITIATED: Date: 02/08/2021 Time: 190
[2021-05-21] MEDS: 0.9% Normal Saline 1,000 ML 75 ML IV (23:45)
[2021-05-22] VITALS (9 sets, daily range): BP systolic 95–105; BP diastolic 48–73; PULSE 62–75; RESP 16–18; TEMP 36.1–36.9; O2SAT 93–95
[2021-05-22] MEDS: Levothyroxine 100 MCG Tablet PO (06:11)
[2021-05-22 08:18] LABS: Absolute Lymphocyte Count 2.51 X10^3/uL (0.83-4.51); Absolute Neutrophil Count 3.1 X10^3/uL (2.0-7.7); Basophil# 0.02 X10^3/uL; Basophil% 0.3 % (0-1); Eosinophil# 0.09 X10^3/uL; Eosinophils% 1.4 % (0-5); Hematocrit 28.2 % (37-47); Hemoglobin 8.9 g/dL (12.0-15.0); Lymphocyte # 2.51 X10^3/ul (0.83-4.51); Lymphocyte % 38.7 % (19-41); Mean Corp Hgb Conc 31.6 g/dL (32-36); Mean Corpuscular Hgb 31.9 pg (27.0-32.0); Mean Corpuscular Volume 101.1 fL (81-99); Mean Platelet Vol. 11.2 fl (6.2-12.0); Monocyte# 0.75 X10^3/uL; Monocyte% 11.6 % (0-10); NRBC Flagged by Analyzer 0 % (0-5); Neutrophil # 3.09 X10^3/uL (2.7-7.7); Neutrophil % 47.7 % (47-70); POSITIVE COUNT YES; Platelet Count 97 K/mm3 (150-450); RBC Distribution Width CV 15.4 % (11.6-14.6); Red Blood Count 2.79 M/mm3 (4.2-5.4); White Blood Count 6.5 K/mm3 (4.4-11.0)
[2021-05-22 08:25] LABS: Differential Indicated SCAN CRITERIA MET
[2021-05-22 08:42] LABS: Anion Gap 7 (5-15); BUN 56 mg/dL (7-18); BUN/Creat Ratio 14.3 RATIO (10-20); Calcium,Total 9.2 mg/dL (8.5-10.1); Chloride 107 mmol/L (98-107); Creatinine, Serum 3.92 mg/dL (0.55-1.02); EST Glomerular Filtration Rate 12 mL/min (>60); Est Glom Filt Rate - Afr Amer 14 mL/min (>60); Glucose 97 mg/dL (74-106); Potassium 5.7 mmol/L (3.5-5.1); Sodium Level 136 mmol/L (136-145)
[2021-05-22 08:56] LABS: Platelet Estimate SLT DEC (ADEQ)
--- NOTE | 2021-05-22 09:00 | US_ITS ---
STUDY: RENAL ULTRASOUND - COMPLETE REASON FOR EXAM: Female, 85 years old. LES TECHNIQUE: Ultrasound evaluation of the kidneys was performed with real-time and static jett-scale imaging. COMPARISON: None. FINDINGS: RIGHT KIDNEY: Normal location of the right kidney, which is normal in size. The right kidney measures 10.5 x 4.1 x 4.7 cm. There is a normal cortex of the right kidney. The renal cortex measures 1.5 cm. There is no right renal mass or cyst. There are no right renal calculi. There is no right hydronephrosis. DISTAL RIGHT URETER: There is non-visualization of the distal right ureter. There is no demonstrated right ureterovesical junction calculus. There is no demonstrated right ureteral jet. LEFT KIDNEY: Normal location of the left kidney, which is normal in size. The left kidney measures 8.9 x 4.7 x 4.4 cm. There is a normal cortex of the left kidney. The renal cortex measures 1.6 cm. There is no left renal mass or cyst. There are no left renal calculi. There is no left hydronephrosis. DISTAL LEFT URETER: There is non-visualization of the distal left ureter. There is no demonstrated left ureterovesical junction calculus. There is no demonstrated left ureteral jet. BLADDER: The bladder is empty. US/Kidney and Bladder IMPRESSION: No evidence of hydronephrosis. Electronically Signed: Kam Ballard, at 12:57 EST Tel , Service support ,
[2021-05-22] MEDS: Lidocaine 5% Patch 2 PATCH TOPICAL (09:28)
[2021-05-22] MEDS: Aspirin 81 MG TAB.CHEW PO (09:30)
[2021-05-22] MEDS: APIXABAN 2.5 MG TABLET PO ×2 (09:30→21:33)
[2021-05-22] MEDS: Gabapentin 100 MG Capsule PO ×2 (09:30→17:06)
[2021-05-22] MEDS: Calcium Carb/Vitamin D 1 TABLET Tablet PO ×2 (09:31→21:33)
[2021-05-22] MEDS: predniSONE 5 MG Tablet PO ×2 (09:34→17:07)
[2021-05-22] MEDS: Citalopram 20 MG Tablet PO ×2 (09:34→21:33)
--- NOTE | 2021-05-22 10:14 | RAD_ITS ---
STUDY: X-RAY - RIGHT ANKLE REASON FOR EXAM: Female, 85 years old. PAIN TECHNIQUE: 3 view(s) of the ankle. COMPARISON: 02/25/2016 FINDINGS: Side plate and screws fusing the distal tibiotalar joint. Arthroplasty of the tibiotalar joint. Arthrodesis of the talocalcaneal and calcaneocuboid joints. Degenerative arthrosis of the tarsal joints. No demonstrated acute fracture. Mild soft tissue swelling. RAD/Ankle min 3 Views IMPRESSION: Postoperative changes as described above unchanged since prior examination. Electronically Signed: Kam Ballard, at 13:26 EST Tel , Service support ,
--- NOTE | 2021-05-22 10:15 | RAD_ITS ---
STUDY: X-RAY - LEFT FOOT CLINICAL: Female, 85 years old. PAIN TECHNIQUE: 3 view(s) of the foot. COMPARISON: None. FINDINGS: Status post fusion of the talocalcaneal joint. Surgical screws. Degenerative spur of the talonavicular joint. Demineralization of the osseous structures. No demonstrated acute fracture. Unremarkable soft tissues. RAD/Foot min 3 Views IMPRESSION: Status post fusion of the calcaneocuboid joints. No demonstrated acute osseous changes. Electronically Signed: Kam Ballard, at 14:33 EST Tel , Service support ,
--- NOTE | 2021-05-22 10:15 | RAD_ITS ---
STUDY: X-RAY - RIGHT FOOT CLINICAL: Female, 85 years old. PAIN TECHNIQUE: 3 view(s) of the foot. COMPARISON: None. FINDINGS: Status post fusion of the distal tibiotalar joint and right tibiotalar arthroplasty fusion of the calcaneocuboid joints with a screws and brent. Degenerative changes of the talonavicular joint. Mild hammertoes deformity. No demonstrated acute fracture. Vascular calcifications. RAD/Foot min 3 Views IMPRESSION: Postoperative changes as described above. No demonstrated acute osseous changes. Electronically Signed: Kam Ballard, at 14:41 EST Tel , Service support ,
--- NOTE | 2021-05-22 10:25 | CASEMGMT ---
RN CM Face to Face with patient for initial transition planning/care coordination assessment. RN CM introduced self and role at [facility]. Patient lying in bed, alert and oriented. Patient willing to participate in assessment and is able to answer all questions appropriately. Care providers, pharmacy, and demographics verified. Patient wishes to discharge home with possible HHC, but patient is willing to go to SNF if needed. Patient states she has no further needs or concerns at this time. CM to follow for discharge planning needs that may arise. PCP: Naima Specialists: Jhon cardiollawrence, Carissa Ross Preferred [facility]acy: [facility] Insurance: [place], [employer] other Prescription Benefit: yes Living Will/HPOA: yes, daughter Misty Navarro LNOK: son, daughter Living Arrangements: Patient lives alone in a 1 story home with 2 steps and grab bar to enter. Patient states she is independent at home. Patient states that her recently in February,. Transportation: self/children DME/HHC: Patient states she has shower chair, cane, walker, wheelchair, medical alert, and grab bars at home. [facility] has [facility] been to [facility]. Patient states she prefers [facility] for HHC and [facility] or [place] for SNF. Disposition Plan: TBD, HHC vs SNF. Estefani MCCARTHY, RN, CM
[2021-05-22 10:36] LABS: Erythrocyte Sedimentation Rate 28 mm/hr (0-30)
--- NOTE | 2021-05-22 10:45 | RAD_ITS ---
STUDY: X-RAY - LEFT ANKLE REASON FOR EXAM: Female, 85 years old. Pain. TECHNIQUE: 3 view(s) of the ankle. COMPARISON: None. FINDINGS: Status post talocalcaneal fusion with surgical screws. Fusion of the calcaneocuboid. Narrowing of the tibiotalar joint. Degenerative spur of the talonavicular joint. The ankle mortise appears intact. No demonstrated acute fracture. Degenerative spur of the Vascular calcifications. RAD/Ankle min 3 Views IMPRESSION: Status post fusion as described above. No demonstrated acute osseous changes. Electronically Signed: Kam Ballard, at 14:23 EST Tel , Service support ,
--- NOTE | 2021-05-22 10:54 | PN.HOSP_ITS ---
Documented by User: Ej BOJORQUEZ 05/22/21 11:08 Subjective Subjective Patient is an 85-year-old female resting in bed, alert and orient x3. Patient reports some lower extremity swelling and pain with manipulation but denies development of any new symptoms overnight. Does not appear in acute distress. Objective Data Objective Data Vital Signs: Vital Signs Temp Pulse Resp BP Pulse Ox 98.5 F 62 16 103/63 95 05/22/21 09:27 05/22/21 09:27 05/22/21 09:27 05/22/21 09:27 05/22/21 09:27 Oxygen Delivery Method Room Air Weight: 212 lb 15.465 oz Body Mass Index (BMI) 33.3 Intake & Output: Intake and Output for Last 24 Hours 05/20/21 05/21/21 05/22/21 23:59 23:59 23:59 Intake Total 580 / 580 60 / 60 Balance 580 / 580 60 / 60 Lab / Micro Data Result Diagrams: 05/22/21 07:49 05/22/21 07:49 Labs: Laboratory Results - last 24 hr 05/21/21 18:13: WBC 7.6, RBC 3.12 L, Hgb 9.8 L, Hct 31.1 L, MCV 99.7 H, MCH 31.4, MCHC 31.5 L, RDW Std Deviation 56.0 H, RDW Coeff of Christiano 15.4 H, Plt Count 110 L, MPV 12.9 H, Immature Gran % (Auto) 0.400, Neut % (Auto) 53.5, Lymph % (Auto) 34.1, [place] % (Auto) 10.4 H, Eos % (Auto) 1.3, Baso % (Auto) 0.3, Absolute Neuts (auto) 4.1, Absolute Lymphs (auto) 2.60, Nucleated RBC % 0 05/21/21 18:13: Sodium 136, Potassium 5.9 H, Chloride 104, Carbon Dioxide 24.0, Anion Gap 8, BUN 53 H, Creatinine 3.23 H, Estim Creat Clear Calc 12.85, Est GFR (MDRD) Af Amer 18 L, Est GFR (MDRD) Non-Af 15 L, BUN/Creatinine Ratio 16.4, Glucose 97, Calcium 9.1, Magnesium 1.9 05/21/21 18:13: B-Natriuretic Peptide 107.0 H 05/21/21 19:20: Lactic Acid 1.1 05/21/21 19:22: Urine Color Yellow, Urine Clarity Clear, Urine pH 5.0, Ur Specific [place] 1.025, Urine Protein 30 H, Urine Glucose (UA) Normal, Urine Ketones 5 H, Urine Occult Blood 150 H, Urine Nitrite Negative, Urine Bilirubin Negative, Urine Urobilinogen 1 H, Ur Leukocyte Esterase 25 H, Urine RBC 0-5 SEEN, Urine WBC 0-5 SEEN, Ur Squamous Epith Cells 0-5 SEEN, Urine Bacteria 1+, Urine Mucus 0 SEEN 05/22/21 07:49: WBC 6.5, RBC 2.79 L, Hgb 8.9 L, Hct 28.2 L, MCV 101.1 H, MCH 31.9, MCHC 31.6 L, RDW Std Deviation 58.0 H, RDW Coeff of [place] 15.4 H, Plt Count 97 L, MPV 11.2, Immature Gran % (Auto) 0.300, Neut % (Auto) 47.7, Lymph % (Auto) 38.7, [place] % (Auto) 11.6 H, Eos % (Auto) 1.4, Baso % (Auto) 0.3, Absolute Neuts (auto) 3.1, Absolute Lymphs (auto) 2.51, Nucleated RBC % 0, Platelet Estimate SLT 05/22/21 07:49: Sodium 136, Potassium 5.7 H, Chloride 107, Carbon Dioxide 22.0, Anion Gap 7, BUN 56 H, Creatinine 3.92 H, Estim Creat Clear Calc 10.20, Est GFR (MDRD) Af Amer 14 L, Est GFR (MDRD) Non-Af 12 L, BUN/Creatinine Ratio 14.3, Glucose 97, Calcium 9.2 05/22/21 07:49: ESR 28 Micro: Microbiology 05/21/21 23:15 Nasal Secretion SARS-CoV-2 Antigen (Rapid) - Final Radiography Diagnostic Testing: Radiology Impression Chest X-Ray 05/21/21 20:00 IMPRESSION: 1. No evidence of acute cardiopulmonary disease. Chronic findings as above. Electronically Signed: Tommy Clements DO at 20:40 EST Tel , Service support , Physical Exam Const alert, oriented x3 and no apparent distress HEENT head/scalp atraumatic and moist oral mucous membranes Head and Scalp: normocephalic Eyes PERRL, EOMs intact bilaterally and conjunctivae normal Neck no lymphadenopathy, supple and no JVD Resp normal respiratory effort, no retractions, no use of accessory muscles and clear to auscultation bilaterally Cardio regular rate, regular rhythm, no murmurs and no JVD GI normal to inspection, nondistended, normoactive bowel sounds, soft to palpation and non-tender Extremity normal to inspection, full ROM and no clubbing, cyanosis or edema Skin no rashes or lesions noted, no wounds, skin turgor normal and no jaundice Neuro CN's II-XII intact bilaterally Psych affect normal Assessment & Plan Assessment/Plan (1) LES (acute kidney injury): PLAN: Day 1 Discharge planning: To be determined, case management and social work following. 1) LES on CKD stage IV Creatinine currently 3.9, worse from admission despite IV fluids. Patient denies wanting dialysis. Plan; continue IV fluids, continue to trend BMP, avoid nephrotoxic's, ESR/CRP ordered, nephrology consult ordered. 2) hyperkalemia Potassium 5.7, was 5.9 on admission. Patient was given calcium gluconate, insulin and bicarbonate on admission and continued on fluids. We will continue to trend BMP, nephrology consult as above, Kayexalate given. 3) Abnormal urinalysis Patient is without urinary symptoms, although she does not make much urine. UA on admission demonstrated urine occult blood of 150; urine protein of 30. Urine requested Estrace of 25. Urine nitrite was negative. Urine squamous cell was normal at 0.5. Urine bacteria was 1+. Vital signs are stable and patient is afebrile. Hold off on antibiotics at this time. 4) history of heart failure Not in acute exacerbation. Unclear type, lower extremities are swollen bilaterally and there is pain to manipulation with the ankles bilaterally. Hold on Lasix due to #1 and metoprolol. Continue to elevate lower extremities and continue Lidoderm to legs bilaterally. Bilateral lower extremity x-rays ordered. 5) hypotension Likely due to dehydration from admission, continue to hold antihypertensives. 6) paroxysmal atrial fibrillation Patient is on metoprolol for rate control and is anticoagulated on Eliquis. Hold metoprolol due to #5. 7) Chronic pancytopenia Review of CBC shows chronic anemia and thrombocytopenia. Thrombocytopenia is worse compared to baseline. Trend CBC. DVT prophylaxis - Eliquis Patient seen by Ej Vallejo PA-C, under the supervision of Dr. Cervantes. Documented by User: Dr. Suzie Cervantes DO 05/22/21 16:10 Subjective Subjective This patient was seen in conjunction with RENO Lee. The following is representation my independent history and physical examination. Please see below for addendum the above. Patient does have known chronic kidney disease. She states at 1 point she was to follow-up with a latin teacher but never did. She is never seen an outpatient latin teacher but has seen a latin teacher while she was hospitalized at [facility] at one point. She is unable to remember who that is. She indicates she would not want dialysis if it was required. She is also complaining of bilateral foot pain that has rendered her with the inability to walk at this time. She has had bilateral ankle surgeries and has lateral used ankles. Objective Data Lab / Micro Data Result Diagrams: 05/22/21 07:49 05/22/21 07:49 Physical Exam Const alert, oriented x3 and no apparent distress Constitutional Narrative: Obese elderly white female sitting up in the bed, appears comfortable, nontoxic Exam Limitations: no limitations Nutritional Appearance: obese HEENT head/scalp atraumatic and moist oral mucous membranes HEENT Narrative: Dentition is fair for age, no thrush, Mallampati is 2-3 Head and Scalp: normocephalic Resp normal respiratory effort, no retractions, no use of accessory muscles and clear to auscultation bilaterally Auscultation: Negative for crackles, rales, rhonchi or wheezes Cardio regular rate, regular rhythm, S1 normal heart sound, S2 normal heart sound, no murmurs, no rub, no gallops, no clicks and no JVD GI normal to inspection, nondistended, normoactive bowel sounds, soft to palpation, non-tender and non-distended Extremity no clubbing, cyanosis or edema Peripheral Pulses: Yes pulses 2+ throughout Skin no wounds, no jaundice, no petechiae and no mottling Skin Narrative: Bilateral feet with slight erythema distally, bilateral lower extremity tinea, legs are shiny Neuro oriented x3, CN's II-XII intact bilaterally, moves all extremities and no focal motor deficits Sensorium / Orientation: awake and alert Speech: speech normal Psych Psych Narrative: Affect is mildly flattened mood is somewhat depressed Mood & Affect: depressed Assessment & Plan Assessment/Plan (1) Cellulitis: (2) Acute on chronic kidney failure: QUALIFIERS: Acute renal failure type: unspecified Chronic kidney disease stage: stage 4 (severe) Qualified Code(s): N17.9 - Acute kidney failure, unspecified; N18.4 - Chronic kidney disease, stage 4 (severe) (3) Acute hyperkalemia: PLAN: Assessment: LES on CKD stage IIIb-IV Hyperkalemia Hypotension Bilateral lower extremity edema Anemia of chronic renal disease Chronic thrombocytopenia Bilateral lower extremity pain/? Cellulitis PAF Neuropathy Hypertension Hypothyroidism Hyperlipidemia CAD History of ischemic myopathy-Baseline EF is unknown Depression Plan: -Retroperitoneal ultrasound is unimpressive -Fe urea and FeNa both are indicative of prerenal causes although I am not clear if this is dehydration or cardiorenal syndrome -BNP however on admission was not all the elevated -We will continue IV fluids at 75 cc/h as patient remains oliguric -Ayers is in place -Reassess in the a.m. -Nephrology has been consulted -Baseline serum creatinine appears to be -Check echocardiogram given increased lower extremity swelling -Check bilateral x-rays of foot and ankle -Check uric acid, CRP, ESR--> patient does have RA at baseline and I am wondering if this is a flare of this -Hold home antihypertensives and diuretics at this time -Potassium has come down some we will repeat Kayexalate dosing today. Charges/Coding Visit Charges Inpatient E&M: 31372 Subs Hosp L2
[2021-05-22 11:20] LABS: Urea Nitrogen, Urine 171 mg/dL (NO RANGE EST.); Urine Sodium 26 mmol/L (Not Establ.)
[2021-05-22] MEDS: Sodium Polystyrene Sulfonate 15 GM/60 ML UDC PO (12:01)
[2021-05-22] MEDS: 0.9% Normal Saline 1,000 ML 75 ML IV (14:16)
--- NOTE | 2021-05-22 16:06 | ECHOCS_ITS ---
Reason For Study: HEART FAILURE Procedure This was a 2D Doppler, Color Flow transthoracic echocardiogram. The study was technically difficult. Due to body habitus. Contrast injection was performed. Exam performed portable in patient room. Left Ventricle Normal LV size. Mild concentric left ventricular hypertrophy. The estimated ejection fraction is 40 %. Stage 1 diastolic dysfunction. There are regional wall motion abnormalities as specified. [place] : Akinetic. Anterior [place] : Severely Hypokinetic. Mid-Anterior : Normal. Inferior [place] : Akinetic. The rest of the wall segments are normal. Right Ventricle Normal RV size. ICD or pacer leads identified within the right ventricle. Normal systolic function. Atria The left atrium is mildly enlarged. The right atrium is mildly enlarged. ICD or pacer leads identified within the right atrium. Mitral Valve Normal mitral valve. Tricuspid Valve Normal tricuspid valve. Mild (1+) tricuspid valve insufficiency. Pulmonary artery systolic pressure is 34 mmHg. Aortic Valve Trisinus/trileaflet aortic valve. Mild focal aortic valve calcification. Pulmonic Valve Normal pulmonic valve. Great Vessels Calcified aortic root. The pulmonary artery is normal size. Normal inferior vena cava. Pericardium/Pleural No pericardial effusion. Medication Diluted definity 3.0ml given slow IV push to enhance endocardial definition. MMode/2D Measurements & Calculations LVIDd: 4.2 cm IVSd: 1.4 cm Ao root diam: 3.2 cm LVIDs: 2.9 cm LVPWd: 1.2 cm FS: 31.7 % LAV(MOD-bp): 85.9 ml LA A4 area: 23.5 cm2 LA dimension(2D): 4.5 cm LAV(MOD-bp) Indexed: 41.4 ml/m2 LAV(MOD-sp2): 84.4 ml LAV(MOD-sp4): 81.7 ml RA A4 area: 21.0 cm2 Time Measurements MV dec time: 0.31 sec Doppler Measurements & Calculations MV E max kaden: 102.3 cm/sec Lat Peak E' Kaden: 6.1 cm/sec Med Peak E' Kaden: 4.2 cm/sec MV A max kaden: 134.1 cm/sec E/E' lat: 16.7 E/E' med: 24.4 MV E/A: 0.76 Ao V2 max: 118.8 cm/sec LV V1 max: 96.7 cm/sec PA V2 max: 115.1 cm/sec Ao max P.6 mmHg LV V1 max P.7 mmHg TR max kaden: 276.7 cm/sec TR max P.7 mmHg ECHO/Echo Complete W/ Contrast Interpretation Summary Normal LV size. Mild concentric left ventricular hypertrophy. The estimated ejection fraction is 40 %. Stage 1 diastolic dysfunction. There are regional wall motion abnormalities as specified. Above consistent with mid to distal LAD occlusion or Takotsubo cardiomyopathy C ontrast injection was performed. Ordering Physician: Suzie Cervantes Referring Physician: Matilde Keller Performed By: Sarahy Thakur RDCS, RVT
[2021-05-22 17:11] LABS: Uric Acid 8.4 mg/dL (2.6-6.0)
--- NOTE | 2021-05-22 19:32 | CON.PCM.RE_ITS ---
Assessment & Plan Assessment/Plan (1) LES (acute kidney injury): (2) Chronic kidney disease, stage 4 (severe): (3) Hypertension: QUALIFIERS: Hypertension type: essential hypertension Qualified Code(s): I10 - Essential (primary) hypertension (4) CAD (coronary artery disease): QUALIFIERS: Coronary Disease-Associated Artery/Lesion type: unspecified vessel or lesion type Three Affiliated vs. transplanted heart: unspecified whether enterprise or transplanted heart Associated angina: angina presence unspecified Qualified Code(s): I25.10 - Atherosclerotic heart disease of enterprise coronary artery without angina pectoris PLAN: Plan: -The patient has acute kidney injury on chronic kidney disease stage IV. -Fractional excretion of sodium today is less than 1%. Although the patient has a history of ischemic cardiomyopathy and is on medications for HFrEF (Entresto), the patient does not appear to be volume overloaded on my exam. -Agree with IV fluid at current rate. -Continue to monitor the patient's volume status closely. We will try to obtain results of prior cardiac work-up such as echocardiogram from [facility]. -Agree with holding Entresto and furosemide. -Agree with holding potassium chloride supplementation since the patient is hyperkalemic. Hopefully, potassium level will decrease with volume repletion and with holding ARB and potassium chloride. -There is no urgent need for kidney replacement therapy. In fact, the patient has been resolute about not wanting to start dialysis regardless of the consequences. HPI Consult Data Date of Consult: 05/22/21 HPI Narrative Reason for Consultation: LES on CKD HPI Narrative: The patient is an 85-year-old woman with past history of CAD status post PCI (followed by Dr. Ferreira at [facility]), paroxysmal atrial fibrillation, hypothyroidism, rheumatoid arthritis, and hyperlipidemia. The patient presented to the hospital on 05/21/2021 with a 3- day history of increasing lower extremity edema, fatigue, and decreasing urine output. The patient also complained of pain on both her feet with walking. The patient denies chest pain, nausea, vomiting, or diarrhea. The patient does complain of shortness of breath with activities. Nephrology is asked to see the patient because of acute kidney injury. Her serum creatinine has increased to 3.92 mg/dL today from 3.23 mg/dL on presentation. Serum creatinine was 1.48 mg/dL on 07/24/2020. The patient is also found to have hyperkalemia with potassium level 5.7 mmol/L today. The patient reports decreasing urine output for 2 days prior to admission. She denies gross hematuria. Appetite has not changed significantly prior to admission. She was on Entresto as well as potassium chloride supplementation prior to admission. The patient denies taking NSAIDs prior to admission. She has been taking tramadol and prednisone for her rheumatoid arthritis. [facility] Medical History (Updated 05/22/21 @ 19:[address] Rozina Mojica MD) LES (acute kidney injury) Anemia in chronic renal disease CAD (coronary artery disease) Chronic anemia CKD (chronic kidney disease), stage III Hyperlipidemia Hypertension Hyperthyroidism Hypothyroidism ICD (implantable cardioverter-defibrillator) in place Ischemic cardiomyopathy Pacemaker PAF (paroxysmal atrial fibrillation) Rheumatoid arthritis Rheumatoid arthritis Systolic CHF Home Medications Orencia (with maltose) 500 mg IV X1 02/25/16 [History Last Taken Unknown] calcium carbonate-vitamin D3 [Caltrate with Vitamin D3] 1 ea PO BID 02/25/16 [History Last Taken 07/22/20] citalopram 20 mg PO BID 02/25/16 [History Last Taken 07/22/20] folic acid 1 mg PO DAILY@0800 02/25/16 [History Last Taken 07/22/20] gabapentin 300 mg PO BIDCM 02/25/16 [History Last Taken 07/22/20] metoprolol succinate 25 mg PO DAILY PRN PRN 02/25/16 [History Last Taken 07/22/20] nitroglycerin 0.4 mg SUBLINGUAL Q5M PRN 02/25/16 [History Last Taken Unknown] levothyroxine 150 mcg PO DAILY 02/26/16 [History Last Taken 07/22/20] apixaban 2.5 mg PO BID 07/22/20 [History Last Taken 07/22/20] furosemide 20 mg PO DAILY PRN 07/22/20 [History Last Taken 07/22/20] isosorbide mononitrate 30 mg PO DAILY 07/22/20 [History Last Taken Unknown] lovastatin 20 mg PO QHS 07/22/20 [History Last Taken 07/21/20] potassium chloride 10 meq PO DAILY PRN PRN 07/22/20 [History Last Taken 07/22/20] prednisone 5 mg PO BID 07/22/20 [History Last Taken 07/22/20] tramadol 50 mg PO Q8H PRN PRN 07/22/20 [History Last Taken Unknown] Lactobacillus acidophilus [Florajen Acidophilus] 10,000 mmu cells PO DAILY 05/22/21 [History Last Taken Unknown] multivitamin 1 tab PO DAILY 05/22/21 [History Last Taken Unknown] sacubitril-valsartan [Entresto] 1 tab PO BID 05/22/21 [History Last Taken Unknown] zolpidem [Ambien] 5 mg PO QHS PRN 05/22/21 [History Last Taken Unknown] Allergy/AdvReac Type Severity Reaction Status Date / Time doxycycline Allergy Rash Verified 05/22/21 19:22 metronidazole [From Flagyl] Allergy Hives Verified 05/22/21 19:22 Penicillins [PCN] Allergy Hives Verified 05/21/21 18:04 piperacillin [From Zosyn] Allergy Rash Verified 05/22/21 19:22 tazobactam [From Zosyn] Allergy Rash Verified 05/22/21 19:22 ticagrelor [From Brilinta] AdvReac Other Verified 05/22/21 19:22 Family History Other Cancer Heart disease High cholesterol Hypertension Surgical History H/O hemorrhoidectomy History of permanent cardiac pacemaker placement History of total replacement of right ankle Hx of cholecystectomy S/P bilateral cataract extraction Stented coronary artery Social History Smoking Status: Never smoker ROS ROS Narrative 04/04 review of system were reviewed. Physical Exam Narrative General: Alert and oriented x3 in no apparent distress. HEENT: Normocephalic, atraumatic. Mucous membrane moist without erythema. PERRLA, EOMI. Hearing is intact. Neck: Supple, no JVD. Cardiovascular: Normal S1, S2. No rubs or murmurs. Lungs: Decreased breath sound at bases bilaterally. Otherwise clear. No wheezing. Abdomen: Normal bowel sounds. Abdomen is soft, nontender, no guarding or rebound. Extremity: There is no edema. Lower extremity is marilyn in appearance. The feet are painful to palpation on touch. Skin: Warm and dry. Erythema of the lower extremity from the knee down as described above. Neurologic: No focal neurologic deficit. Psychiatric: Normal mood and affect. Lab / Micro Data Result Diagrams: 05/22/21 07:49 05/22/21 07:49 Labs: Laboratory Results - last 24 hr 05/21/21 18:13: Sodium 136, Potassium 5.9 H, Chloride 104, Carbon Dioxide 24.0, Anion Gap 8, BUN 53 H, Creatinine 3.23 H, Estim Creat Clear Calc 12.85, Est GFR (MDRD) Af Amer 18 L, Est GFR (MDRD) Non-Af 15 L, BUN/Creatinine Ratio 16.4, Glucose 97, Calcium 9.1, Magnesium 1.9 05/21/21 19:20: Lactic Acid 1.1 05/21/21 19:22: Urine Color Yellow, Urine Clarity Clear, Urine pH 5.0, Ur Specific [place] 1.025, Urine Protein 30 H, Urine Glucose (UA) Normal, Urine Ketones 5 H, Urine Occult Blood 150 H, Urine Nitrite Negative, Urine Bilirubin Negative, Urine Urobilinogen 1 H, Ur Leukocyte Esterase 25 H, Urine RBC 0-5 SE EN, Urine WBC 0-5 SEEN, Ur Squamous Epith Cells 0-5 SEEN, Urine Bacteria 1+, Urine Mucus 0 SEEN 05/22/21 07:49: WBC 6.5, RBC 2.79 L, Hgb 8.9 L, Hct 28.2 L, MCV 101.1 H, MCH 31.9, MCHC 31.6 L, RDW Std Deviation 58.0 H, RDW Coeff of [place] 15.4 H, Plt Count 97 L, MPV 11.2, Immature Gran % (Auto) 0.300, Neut % (Auto) 47.7, Lymph % (Auto) 38.7, [place] % (Auto) 11.6 H, Eos % (Auto) 1.4, Baso % (Auto) 0.3, Absolute Neuts (auto) 3.1, Absolute Lymphs (auto) 2.51, Nucleated RBC % 0, Platelet Estimate SLT 05/22/21 07:49: Sodium 136, Potassium 5.7 H, Chloride 107, Carbon Dioxide 22.0, Anion Gap 7, BUN 56 H, Creatinine 3.92 H, Estim Creat Clear Calc 10.20, Est GFR (MDRD) Af Amer 14 L, Est GFR (MDRD) Non-Af 12 L, BUN/Creatinine Ratio 14.3, Glucose 97, Calcium 9.2 05/22/21 07:49: ESR 28 05/22/21 07:49: C-React Prot Ext Range 57.50 H 05/22/21 07:49: Uric Acid 8.4 H 05/22/21 10:25: Ur Random Sodium 26, Urine Creatinine 335.00, Urine Urea Nitrogen 171 Micro: Microbiology 05/21/21 23:15 Nasal Secretion SARS-CoV-2 Antigen (Rapid) - Final Radiology Impression Chest X-Ray 05/21/21 20:00 IMPRESSION: 1. No evidence of acute cardiopulmonary disease. Chronic findings as above. Electronically Signed: Tommy Clements, at 20:40 EST Tel , Service support , Renal Ultrasound 05/22/21 09:00 IMPRESSION: No evidence of hydronephrosis. Electronically Signed: Kam Ballard, at 12:57 EST Tel , Service support , Ankle X-Ray 05/22/21 10:14 IMPRESSION: Postoperative changes as described above unchanged since prior examination. Electronically Signed: Kam Ballard, at 13:26 EST Tel , Service support , Foot X-Ray 05/22/21 10:15 IMPRESSION: Status post fusion of the calcaneocuboid joints. No demonstrated acute osseous changes. Electronically Signed: Kam Ballard, at 14:33 EST Tel , Service support , Foot X-Ray 05/22/21 10:15 IMPRESSION: Postoperative changes as described above. No demonstrated acute osseous changes. Electronically Signed: Kam Ballard, at 14:41 EST Tel , Service support , Ankle X-Ray 05/22/21 10:45 IMPRESSION: Status post fusion as described above. No demonstrated acute osseous changes. Electronically Signed: Kam Ballard, at 14:23 EST Tel , Service support ,
[2021-05-22] MEDS: Atorvastatin Calcium 10 MG Tablet 5 MG PO (21:32)
[2021-05-23] VITALS (10 sets, daily range): BP systolic 94–136; BP diastolic 58–70; PULSE 64–86; RESP 16–18; TEMP 36.4–36.8; O2SAT 94–98
[2021-05-23] MEDS: 0.9% Normal Saline 1,000 ML 75 ML IV ×2 (05:49→19:09)
[2021-05-23] MEDS: Levothyroxine 150 MCG Tablet PO (05:49)
[2021-05-23 06:54] LABS: Absolute Lymphocyte Count 1.49 X10^3/uL (0.83-4.51); Absolute Neutrophil Count 4.5 X10^3/uL (2.0-7.7); Basophil# 0.02 X10^3/uL; Basophil% 0.3 % (0-1); Eosinophil# 0.02 X10^3/uL; Eosinophils% 0.3 % (0-5); Hematocrit 25.4 % (37-47); Hemoglobin 8.3 g/dL (12.0-15.0); Lymphocyte # 1.49 X10^3/ul (0.83-4.51); Lymphocyte % 22.8 % (19-41); Mean Corp Hgb Conc 32.7 g/dL (32-36); Mean Corpuscular Hgb 31.9 pg (27.0-32.0); Mean Corpuscular Volume 97.7 fL (81-99); Monocyte# 0.44 X10^3/uL; Monocyte% 6.7 % (0-10); NRBC Flagged by Analyzer 0 % (0-5); Neutrophil # 4.54 X10^3/uL (2.7-7.7); Neutrophil % 69.6 % (47-70); POSITIVE COUNT YES; Platelet Count 93 K/mm3 (150-450); RBC Distribution Width CV 14.9 % (11.6-14.6); RBC Distribution Width SD 53.4 fl (35.1-43.9); White Blood Count 6.5 K/mm3 (4.4-11.0)
[2021-05-23 07:08] LABS: Anion Gap 6 (5-15); BUN 55 mg/dL (7-18); BUN/Creat Ratio 22.4 RATIO (10-20); Chloride 108 mmol/L (98-107); Creatinine, Serum 2.46 mg/dL (0.55-1.02); EST Glomerular Filtration Rate 20 mL/min (>60); Est Glom Filt Rate - Afr Amer 24 mL/min (>60); Estimated Creatinine Clearance 16.26 ml/min; Glucose 108 mg/dL (74-106); Potassium 5.4 mmol/L (3.5-5.1); Sodium Level 137 mmol/L (136-145)
[2021-05-23] MEDS: traMADol 50 MG Tablet 100 MG PO (08:01)
[2021-05-23] MEDS: Aspirin 81 MG TAB.CHEW PO (08:06)
[2021-05-23] MEDS: Folic Acid 1 MG Tablet PO (08:06)
[2021-05-23] MEDS: APIXABAN 2.5 MG TABLET PO ×2 (08:06→20:31)
[2021-05-23] MEDS: Gabapentin 100 MG Capsule PO ×2 (08:06→17:00)
[2021-05-23] MEDS: Citalopram 20 MG Tablet PO ×2 (08:06→20:31)
[2021-05-23] MEDS: Calcium Carb/Vitamin D 1 TABLET Tablet PO ×2 (08:06→20:32)
[2021-05-23] MEDS: predniSONE 20 MG Tablet 40 MG PO (08:06)
[2021-05-23] MEDS: Lidocaine 5% Patch 2 PATCH TOPICAL (08:07)
--- NOTE | 2021-05-23 12:20 | PCM.PN.HOSP ---
Documented by User: Ej BOJORQUEZ 05/23/21 12:29 Subjective Subjective Patient is an 85-year-old female comfortably lying in bed, alert and orient x3. Patient denies development of any new symptoms overnight. Does not appear in acute distress. Objective Data Objective Data Vital Signs: Vital Signs Temp Pulse Resp BP Pulse Ox 97.6 F L 64 16 94/59 L 98 05/23/21 09:35 05/23/21 09:35 05/23/21 09:35 05/23/21 09:35 05/23/21 11:19 Oxygen Delivery Method Room Air Weight: 211 lb 3.245 oz Body Mass Index (BMI) 33.3 Intake & Output: Intake and Output for Last 24 Hours 05/21/21 05/22/21 05/23/21 23:59 23:59 23:59 Intake Total 580 / 580 2496.25 / 2496.25 675.00 / 675.00 Output Total 975 / 975 1200 / 1200 Balance 580 / 580 1521.25 / 1521.25 -525.00 / -525.00 Lab / Micro Data Result Diagrams: 05/23/21 06:19 05/23/21 06:19 Labs: Laboratory Results - last 24 hr 05/22/21 07:49: Uric Acid 8.4 H 05/23/21 06:19: WBC 6.5, RBC 2.60 L, Hgb 8.3 L, Hct 25.4 L, MCV 97.7, MCH 31.9, MCHC 32.7, RDW Std Deviation 53.4 H, RDW Coeff of Christian[place] 14.9 H, Plt Count 93 L, MPV 13.0 H, Immature Gran % (Auto) 0.300, Neut % (Auto) 69.6, Lymph % (Auto) 22.8, [place] % (Auto) 6.7, Eos % (Auto) 0.3, Baso % (Auto) 0.3, Absolute Neuts (auto) 4.5, Absolute Lymphs (auto) 1.49, Nucleated RBC % 0 05/23/21 06:19: Sodium 137, Potassium 5.4 H, Chloride 108 H, Carbon Dioxide 23.0, Anion Gap 6, BUN 55 H, Creatinine 2.46 H, Estim Creat Clear Calc 16.26, Est GFR (MDRD) Af Amer 24 L, Est GFR (MDRD) Non-Af 20 L, BUN/Creatinine Ratio 22.4 H, Glucose 108 H, Calcium 9.0 Micro: Microbiology 05/21/21 19:22 Urine Catheter - Catheter Urine Culture - Preliminary Culture exhibits no growth. 05/21/21 23:15 Nasal Secretion SARS-CoV-2 Antigen (Rapid) - Final Radiography Diagnostic Testing: Radiology Impression Renal Ultrasound 05/22/21 09:00 IMPRESSION: No evidence of hydronephrosis. Electronically Signed: Kam Ballard, at 12:57 EST Tel , Service support , Ankle X-Ray 05/22/21 10:14 IMPRESSION: Postoperative changes as described above unchanged since prior examination. Electronically Signed: Kam Gayshaneka, at 13:26 EST Tel , Service support , Foot X-Ray 05/22/21 10:15 IMPRESSION: Status post fusion of the calcaneocuboid joints. No demonstrated acute osseous changes. Electronically Signed: Kam Ballard, at 14:33 EST Tel , Service support , Foot X-Ray 05/22/21 10:15 IMPRESSION: Postoperative changes as described above. No demonstrated acute osseous changes. Electronically Signed: Kam Gayshaneka, at 14:41 EST Tel , Service support , Ankle X-Ray 05/22/21 10:45 IMPRESSION: Status post fusion as described above. No demonstrated acute osseous changes. Electronically Signed: Kam Gayshaneka, at 14:23 EST Tel , Service support , Physical Exam Const alert, oriented x3 and no apparent distress HEENT head/scalp atraumatic and moist oral mucous membranes Head and Scalp: normocephalic Eyes PERRL, EOMs intact bilaterally and conjunctivae normal Neck no lymphadenopathy, supple and no JVD Resp normal respiratory effort, no retractions, no use of accessory muscles and clear to auscultation bilaterally Cardio regular rate, regular rhythm, no murmurs and no JVD GI normal to inspection, nondistended, normoactive bowel sounds, soft to palpation and non-tender Extremity normal to inspection, full ROM and no clubbing, cyanosis or edema Skin no rashes or lesions noted, no wounds, skin turgor normal and no jaundice Neuro CN's II-XII intact bilaterally Psych affect normal Assessment & Plan Assessment/Plan (1) LES (acute kidney injury): (2) Hypertension: QUALIFIERS: Hypertension type: essential hypertension Qualified Code(s): I10 - Essential (primary) hypertension PLAN: Day 2 Discharge planning: To be determined, case management and social work following. 1) LES on CKD stage IV Creatinine currently 2.4, improved. Baseline appears between 1.5 and 2. Patient denies wanting dialysis. Nephrology following; recommendations are to continue IV fluids, monitor fluid status, hold patient Entresto and Lasix and oral potassium supplementation, dialysis not indicated at this time. 2) hyperkalemia Potassium 5.4, was 5.9 on admission. Patient was given calcium gluconate, insulin and bicarbonate on admission and continued on fluids. Nephrology following, believes potassium will continue to downtrend with administration of IV fluids for above. 3) Acute gout flare Patient lower extremities are tenderness to palpation and manipulation. Uric acid 8.4. Lower extremity x-rays demonstrate no acute fracture. Prednisone increased to 40 mg p.o. daily. 4) Abnormal urinalysis Patient is without urinary symptoms, although she does not make much urine. UA on admission demonstrated urine occult blood of 150; urine protein of 30. Urine requested Estrace of 25. Urine nitrite was negative. Urine squamous cell was normal at 0.5. Urine bacteria was 1+. Vital signs are stable and patient is afebrile. Hold off on antibiotics at this time. 5) history of heart failure Not in acute exacerbation. Unclear type, lower extremities are swollen bilaterally and there is pain to manipulation with the ankles bilaterally. Hold on Lasix due to #1, Entresto and metoprolol. Continue to elevate lower extremities and continue Lidoderm to legs bilaterally. Bilateral lower extremity x-rays ordered. 6) hypotension Current BP 94/59. Likely due to dehydration from admission, continue to hold antihypertensives continue with IV fluids. 7) paroxysmal atrial fibrillation Patient is on metoprolol for rate control and is anticoagulated on Eliquis. Hold metoprolol due to #5. 8) Chronic pancytopenia Review of CBC shows chronic anemia and thrombocytopenia. Thrombocytopenia is worse compared to baseline. Trend CBC. DVT prophylaxis - Eliquis Patient seen by Ej Vallejo PA-C, under the supervision of Dr. Cervantes. Documented by User: Dr. Suzie Cervantes DO 05/23/21 15:39 Objective Data Lab / Micro Data Result Diagrams: 05/23/21 06:19 05/23/21 06:19
--- NOTE | 2021-05-23 15:34 | PCM.PN.HOSP ---
Subjective Subjective This patient was seen in conjunction with RENO Lee. The following is representation my independent history and physical examination. Please see below for addendum to his previous note. Patient is having persistent foot pain although reports she feels that the swelling in her legs is better. Urine output has improved. Renal function is better. Patient with no acute complaints other than her legs at this time. She has not yet been able to get out of bed with therapy secondary to pain. Objective Data Objective Data Vital Signs: Vital Signs Temp Pulse Resp BP Pulse Ox 97.6 F L 72 16 94/59 L 98 05/23/21 09:35 05/23/21 15:00 05/23/21 09:35 05/23/21 09:35 05/23/21 11:19 Oxygen Delivery Method Room Air Weight: 95.8 kg Body Mass Index (BMI) 33.3 Intake & Output: Intake and Output for Last 24 Hours 05/21/21 05/22/21 05/23/21 23:59 23:59 23:59 Intake Total 580 / 580 2496.25 / 2496.25 675.00 / 675.00 Output Total 975 / 975 1200 / 1200 Balance 580 / 580 1521.25 / 1521.25 -525.00 / -525.00 Lab / Micro Data Result Diagrams: 05/23/21 06:19 05/23/21 06:19 Labs: Laboratory Results - last 24 hr 05/22/21 07:49: Uric Acid 8.4 H 05/23/21 06:19: WBC 6.5, RBC 2.60 L, Hgb 8.3 L, Hct 25.4 L, MCV 97.7, MCH 31.9, MCHC 32.7, RDW Std Deviation 53.4 H, RDW Coeff of Christiano 14.9 H, Plt Count 93 L, MPV 13.0 H, Immature Gran % (Auto) 0.300, Neut % (Auto) 69.6, Lymph % (Auto) 22.8, [place] % (Auto) 6.7, Eos % (Auto) 0.3, Baso % (Auto) 0.3, Absolute Neuts (auto) 4.5, Absolute Lymphs (auto) 1.49, Nucleated RBC % 0 05/23/21 06:19: Sodium 137, Potassium 5.4 H, Chloride 108 H, Carbon Dioxide 23.0, Anion Gap 6, BUN 55 H, Creatinine 2.46 H, Estim Creat Clear Calc 16.26, Est GFR (MDRD) Af Amer 24 L, Est GFR (MDRD) Non-Af 20 L, BUN/Creatinine Ratio 22.4 H, Glucose 108 H, Calcium 9.0 Micro: Microbiology 05/21/21 19:22 Urine Catheter - Catheter Urine Culture - Preliminary Culture exhibits no growth. 05/21/21 23:15 Nasal Secretion SARS-CoV-2 Antigen (Rapid) - Final Physical Exam Const alert, oriented x3 and no apparent distress Constitutional Narrative: Obese elderly white female sitting up in the bed, appears comfortable, nontoxic Exam Limitations: no limitations Nutritional Appearance: obese HEENT head/scalp atraumatic and moist oral mucous membranes Head and Scalp: normocephalic Resp normal respiratory effort, no retractions, no use of accessory muscles and clear to auscultation bilaterally Auscultation: Negative for crackles, rales, rhonchi or wheezes Cardio regular rate, regular rhythm, S1 normal heart sound, S2 normal heart sound, no murmurs, no rub, no gallops, no clicks and no JVD GI normal to inspection, nondistended, normoactive bowel sounds, soft to palpation, non-tender and non-distended Extremity no clubbing, cyanosis or edema Peripheral Pulses: Yes pulses 2+ throughout Skin no wounds, skin turgor normal, no jaundice, no petechiae and no mottling Skin Narrative: Bilateral feet with less edema but combination machine tender with palpation specifically at the joints Neuro oriented x3, moves all extremities and no focal motor deficits Sensorium / Orientation: awake and alert Speech: speech normal Assessment & Plan Assessment/Plan (1) Cellulitis: (2) Acute on chronic kidney failure: QUALIFIERS: Acute renal failure type: unspecified Chronic kidney disease stage: stage 4 (severe) Qualified Code(s): N17.9 - Acute kidney failure, unspecified; N18.4 - Chronic kidney disease, stage 4 (severe) (3) Acute hyperkalemia: PLAN: Assessment: LES on CKD stage IIIb-IV Hyperkalemia Hypotension Suspected gout Bilateral lower extremity edema Anemia of chronic renal disease Chronic thrombocytopenia Bilateral lower extremity pain/? Cellulitis PAF Neuropathy Hypertension Hypothyroidism Hyperlipidemia CAD History of ischemic myopathy-Baseline EF is unknown Depression Plan: -Retroperitoneal ultrasound is unimpressive -Fe urea and FeNa both are indicative of prerenal causes -Serum creatinine is improving and down to 2.46 from 3.92 with just hydration -We will continue IV fluids at 75 cc/h -A[place] is in place and patient is no longer oliguric -Reassess in the a.m. -Nephrology is following and patient will need outpatient follow-up as well -Continue to hold nephrotoxins -Echocardiogram is pending -Bilateral foot and ankle x-rays are unremarkable for any acute findings -CRP and uric acid are markedly elevated--> will treat for gout -Hold home antihypertensives and diuretics at this time -Potassium is much improved at 5.4 today -We will hold any further Kayexalate at this time -I did update the daughter at the bedside today while on the phone she voiced understanding and has concerns about discharge planning if her mother is not able to ambulate well. I did discuss that we will have to have therapy evaluate her and that she may need some rehab prior to coming home depending on her ability to ambulate. I did also express concern that given the fact she has not been able to get out of bed she may have some weakness that precludes discharge home at this time. Her daughter did express that she ends up with this foot pain every time she ends up with renal failure. She has responded well to steroids in the past. Charges/Coding Visit Charges Inpatient E&M: 78720 Subs Hosp L2
[2021-05-23] MEDS: Atorvastatin Calcium 10 MG Tablet 5 MG PO (20:31)
[2021-05-24] VITALS (10 sets, daily range): BP systolic 123–140; BP diastolic 65–74; PULSE 63–79; RESP 17–18; TEMP 36.6–36.8; O2SAT 95–99
[2021-05-24] MEDS: Levothyroxine 150 MCG Tablet PO (06:49)
[2021-05-24 07:51] LABS: Absolute Lymphocyte Count 1.88 X10^3/uL (0.83-4.51); Absolute Neutrophil Count 4.3 X10^3/uL (2.0-7.7); Basophil# 0.01 X10^3/uL; Basophil% 0.1 % (0-1); Eosinophil# 0.02 X10^3/uL; Eosinophils% 0.3 % (0-5); Hematocrit 26.4 % (37-47); Hemoglobin 8.5 g/dL (12.0-15.0); Lymphocyte # 1.88 X10^3/ul (0.83-4.51); Lymphocyte % 27.7 % (19-41); Mean Corp Hgb Conc 32.2 g/dL (32-36); Mean Corpuscular Hgb 31.8 pg (27.0-32.0); Mean Corpuscular Volume 98.9 fL (81-99); Mean Platelet Vol. 12.6 fl (6.2-12.0); Monocyte# 0.57 X10^3/uL; Monocyte% 8.4 % (0-10); NRBC Flagged by Analyzer 0 % (0-5); Neutrophil # 4.27 X10^3/uL (2.7-7.7); Neutrophil % 62.9 % (47-70); Platelet Count 104 K/mm3 (150-450); RBC Distribution Width CV 14.9 % (11.6-14.6); RBC Distribution Width SD 53.9 fl (35.1-43.9); Red Blood Count 2.67 M/mm3 (4.2-5.4); White Blood Count 6.8 K/mm3 (4.4-11.0)
[2021-05-24 08:17] LABS: Anion Gap 5 (5-15); BUN 46 mg/dL (7-18); BUN/Creat Ratio 30.7 RATIO (10-20); Calcium,Total 9.5 mg/dL (8.5-10.1); Chloride 114 mmol/L (98-107); EST Glomerular Filtration Rate 35 mL/min (>60); Est Glom Filt Rate - Afr Amer 42 mL/min (>60); Estimated Creatinine Clearance 26.66 ml/min; Glucose 99 mg/dL (74-106); Potassium 4.8 mmol/L (3.5-5.1); Sodium Level 142 mmol/L (136-145)
[2021-05-24] MEDS: predniSONE 20 MG Tablet 40 MG PO (08:50)
[2021-05-24] MEDS: Calcium Carb/Vitamin D 1 TABLET Tablet PO ×2 (08:50→21:28)
[2021-05-24] MEDS: APIXABAN 2.5 MG TABLET PO ×2 (08:50→21:27)
[2021-05-24] MEDS: Aspirin 81 MG TAB.CHEW PO (08:50)
[2021-05-24] MEDS: Lidocaine 5% Patch 2 PATCH TOPICAL (08:50)
[2021-05-24] MEDS: Folic Acid 1 MG Tablet PO (08:50)
[2021-05-24] MEDS: Citalopram 20 MG Tablet PO ×2 (08:50→21:28)
[2021-05-24] MEDS: Gabapentin 100 MG Capsule PO ×2 (08:50→17:58)
[2021-05-24] MEDS: 0.9% Normal Saline 1,000 ML 75 ML IV (10:46)
--- NOTE | 2021-05-24 12:10 | PCM.PN.HOSP ---
Documented by User: Ej BOJORQUEZ 05/24/21 12:20 Subjective Subjective Patient is an 85-year-old female comfortably resting in bed, alert and orient x3. Patient reports improvement in her leg pain from admission. Denies development of any new symptoms overnight. Does not appear in acute distress. Objective Data Objective Data Vital Signs: Vital Signs Temp Pulse Resp BP Pulse Ox 97.9 F 63 18 133/66 H 98 05/24/21 08:57 05/24/21 08:57 05/24/21 08:57 05/24/21 08:57 05/24/21 08:57 Oxygen Delivery Method Room Air Weight: 212 lb 1.355 oz Body Mass Index (BMI) 33.3 Intake & Output: Intake and Output for Last 24 Hours 05/22/21 05/23/21 05/24/21 23:59 23:59 23:59 Intake Total 2496.25 / 2496.25 1851.25 / 1851.25 606.25 / 606.25 Output Total 975 / 975 1550 / 2050 750 / 750 Balance 1521.25 / 1521.25 301.25 / -198.75 -143.75 / -143.75 Lab / Micro Data Result Diagrams: 05/24/21 07:35 05/24/21 07:35 Labs: Laboratory Results - last 24 hr 05/24/21 07:35: WBC 6.8, RBC 2.67 L, Hgb 8.5 L, Hct 26.4 L, MCV 98.9, MCH 31.8, MCHC 32.2, RDW Std Deviation 53.9 H, RDW Coeff of Christiano 14.9 H, Plt Count 104 L, MPV 12.6 H, Immature Gran % (Auto) 0.600, Neut % (Auto) 62.9, Lymph % (Auto) 27.7, [place] % (Auto) 8.4, Eos % (Auto) 0.3, Baso % (Auto) 0.1, Absolute Neuts (auto) 4.3, Absolute Lymphs (auto) 1.88, Nucleated RBC % 0 05/24/21 07:35: Sodium 142, Potassium 4.8, Chloride 114 H, Carbon Dioxide 23.0, Anion Gap 5, BUN 46 H, Creatinine 1.50 H, Estim Creat Clear Calc 26.66, Est GFR (MDRD) Af Amer 42 L, Est GFR (MDRD) Non-Af 35 L, BUN/Creatinine Ratio 30.7 H, Glucose 99, Calcium 9.5 Micro: Microbiology 05/21/21 19:22 Urine Catheter - Catheter Urine Culture - Final Culture exhibits no growth. 05/21/21 23:15 Nasal Secretion SARS-CoV-2 Antigen (Rapid) - Final Physical Exam Const alert, oriented x3 and no apparent distress HEENT head/scalp atraumatic and moist oral mucous membranes Head and Scalp: normocephalic Eyes PERRL, EOMs intact bilaterally and conjunctivae normal Neck no lymphadenopathy, supple and no JVD Resp normal respiratory effort, no retractions, no use of accessory muscles and clear to auscultation bilaterally Cardio regular rate, regular rhythm, no murmurs and no JVD GI normal to inspection, nondistended, normoactive bowel sounds, soft to palpation and non-tender Extremity Extremity Narrative: Improved edema in the lower extremities bilaterally. 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 Skin no rashes or lesions noted, no wounds and skin turgor normal Neuro CN's II-XII intact bilaterally Psych affect normal Assessment & Plan Assessment/Plan (1) LES (acute kidney injury): (2) Hypertension: QUALIFIERS: Hypertension type: essential hypertension Qualified Code(s): I10 - Essential (primary) hypertension PLAN: Day 3 Discharge planning: Plan is for patient to discharge to SNF, case management following. 1) LES on CKD stage IV Creatinine currently 1.5, improved. Baseline appears between 1.5 and 2. Patient denies wanting dialysis. Nephrology following; recommendations are to continue IV fluids, monitor fluid status, hold patient Entresto and Lasix and oral potassium supplementation, dialysis not indicated at this time. 2) hyperkalemia Resolved. Potassium 4.8, was 5.9 on admission. Patient was given calcium gluconate, insulin and bicarbonate on admission and continued on fluids. 3) Acute gout flare Patient lower extremities are tenderness to palpation and manipulation. Uric acid 8.4. Lower extremity x-rays demonstrate no acute fracture. Prednisone increased to 40 mg p.o. daily. 4) Abnormal urinalysis Patient is without urinary symptoms, although she does not make much urine. UA on admission demonstrated urine occult blood of 150; urine protein of 30. Urine requested Estrace of 25. Urine nitrite was negative. Urine squamous cell was normal at 0.5. Urine bacteria was 1+. Vital signs are stable and patient is afebrile. Hold off on antibiotics at this time. 5) history of heart failure Not in acute exacerbation. Unclear type, lower extremities are swollen bilaterally and there is pain to manipulation with the ankles bilaterally. Hold on Lasix due to #1, Entresto and metoprolol. Continue to elevate lower extremities and continue Lidoderm to legs bilaterally. 6) hypotension Resolved, currently 133/66. 7) paroxysmal atrial fibrillation Patient is on metoprolol for rate control and is anticoagulated on Eliquis. Hold metoprolol due to #6. 8) Chronic pancytopenia Review of CBC shows chronic anemia and thrombocytopenia. Thrombocytopenia is worse compared to baseline. Trend CBC. DVT prophylaxis - Eliquis Patient seen by Ej Vallejo PA-C, under the supervision of Dr. Bianchi. Documented by User: Dr. Harish Bianchi MD 05/24/21 13:37 Objective Data Lab / Micro Data Result Diagrams: 05/24/21 07:35 05/24/21 07:35 Assessment & Plan Addt'l Comments This patient was seen in conjunction with Ej Vallejo PA-C. I have independently interviewed and examined the patient and reviewed pertinent historical, laboratory, and other data. Please refer to jE Valeljo PA-C's note for details of this patient's presentation, findings, and recommendations. I have reviewed Ej Vallejo PA-C's note and concur with documented findings. In brief, patient is an 85-year-old lady presented with lower extremity pain as well as urinary retention found to be in acute kidney injury superimposed on chronic kidney disease stage III. Admitted to a monitored bed for further management Physical Examination: GENERAL: cooperative HEENT: Atraumatic; EYES; Anicteric, Normal Conjunctiva NECK; supple, normal thyroid, RESPIRATORY: Diminished to auscultation CARDIOVASCULAR: Regular S1 S2, SKIN: No Rash PSYCH; Flat affect Assessment: 1. Acute kidney injury 2. Chronic kidney disease stage III 3. Ischemic cardiomyopathy 4. Rheumatoid arthritis 5. Paroxysmal A. fib 6. Hypothyroidism 7. Obesity class I with BMI of 33.3 8. Dyslipidemia 9. Hyperkalemia 10. Acute gouty arthritis flareup 11. Chronic congestive heart failure with decreased ejection fraction 12. Chronic pancytopenia 13. DVT prophylaxis?Eliquis 40. Physical deconditioning Recommendations: 1. I have discussed the results of my overview and impressions with the patient 2. Options for management were reviewed Charges/Coding Visit Charges Inpatient E&M: 69231 Subs Hosp L3
--- NOTE | 2021-05-24 15:43 | CASEMGMT ---
SW met with patient. Introduced self and role at [facility]. SW spoke with patient about SNF. Patient confirmed [facility]. SW let her know SW can make a referral to both places. Referrals were made to [facility] and [facility]. Both of which can accept patient. However, if patient were to go to [facility] she would not be able to get an injection for her Rheumatoid Arthritis. [facility] is looking into it. SW spoke with patient and let her know above information. She wanted SW to come back when her daughter gets here. Lucina Mayo CONSULAR OFFICER KARO
--- NOTE | 2021-05-24 15:48 | CASEMGMT ---
SW spoke with patient's daughter, Misty in the hallway as patient was using the restroom. SW let Misty know [facility] and [facility] [place] [facility] take her. SW let Misty know about not being able to get the Orencia injection if she would go to [facility] and [facility] is looking into it. Misty asked SW about [facility] in [place]. SW let her know SW can check in with them also. SW will check back with patient to see what she wants. Lucina HUDDLESTON
[2021-05-24] MEDS: Atorvastatin Calcium 10 MG Tablet 5 MG PO (21:27)
[2021-05-25] MEDS: 0.9% Normal Saline 1,000 ML 75 ML IV ×2 (00:04→13:17)
[2021-05-25 02:25] VITALS: BP 140/77; PULSE 70; RESP 18; TEMP 36.6; O2SAT 97
[2021-05-25 03:00] VITALS: PULSE 65
[2021-05-25] MEDS: Levothyroxine 150 MCG Tablet PO (05:45)
[2021-05-25 05:57] VITALS: BP 150/81; PULSE 61; RESP 18; TEMP 36.7; O2SAT 97
[2021-05-25 07:00] VITALS: PULSE 62
[2021-05-25 07:28] LABS: Absolute Lymphocyte Count 2.09 X10^3/uL (0.83-4.51); Absolute Neutrophil Count 4.3 X10^3/uL (2.0-7.7); Eosinophil# 0.02 X10^3/uL; Eosinophils% 0.3 % (0-5); Hematocrit 25.4 % (37-47); Hemoglobin 8.3 g/dL (12.0-15.0); Lymphocyte # 2.09 X10^3/ul (0.83-4.51); Lymphocyte % 29.9 % (19-41); Mean Corp Hgb Conc 32.7 g/dL (32-36); Mean Corpuscular Hgb 31.7 pg (27.0-32.0); Mean Corpuscular Volume 96.9 fL (81-99); Mean Platelet Vol. 12.4 fl (6.2-12.0); Monocyte# 0.59 X10^3/uL; Monocyte% 8.5 % (0-10); NRBC Flagged by Analyzer 0 % (0-5); Neutrophil # 4.26 X10^3/uL (2.7-7.7); POSITIVE MORPHOLOGY YES; Platelet Count 114 K/mm3 (150-450); RBC Distribution Width CV 14.9 % (11.6-14.6); RBC Distribution Width SD 53.1 fl (35.1-43.9); Red Blood Count 2.62 M/mm3 (4.2-5.4)
[2021-05-25 07:29] LABS: Differential Indicated SCAN CRITERIA MET
[2021-05-25 07:50] LABS: Anion Gap 8 (5-15); BUN 39 mg/dL (7-18); BUN/Creat Ratio 32.2 RATIO (10-20); Calcium,Total 9.2 mg/dL (8.5-10.1); Chloride 114 mmol/L (98-107); Creatinine, Serum 1.21 mg/dL (0.55-1.02); EST Glomerular Filtration Rate 45 mL/min (>60); Est Glom Filt Rate - Afr Amer 54 mL/min (>60); Estimated Creatinine Clearance 33.06 ml/min; Glucose 82 mg/dL (74-106); Magnesium 1.7 mg/dL (1.6-2.6); Potassium 4.5 mmol/L (3.5-5.1); Sodium Level 143 mmol/L (136-145)
[2021-05-25 07:52] LABS: Hypochromasia 1+
[2021-05-25 08:45] VITALS: BP 166/78; PULSE 72; RESP 18; TEMP 36.7; O2SAT 97
--- NOTE | 2021-05-25 08:50 | CASEMGMT ---
SW spoke with patient about what facility she and her daughter decided on. She asked SW to call her daughter Barbie. SW called patient's daughter Barbie. She and her siblings would like patient in [place] as it is closer for the family and friends to visit. SW told her the 3 facilities in [place] and their star ratings. She wanted the 2 facilities that get 5 stars which are [facility] and [facility]. SW told her SW will work on referrals and let her know. UMESH called and left a message for admissions at [facility] and faxed referral. UMESH did the same with [facility]. Await responses. Lucina Mayo ADHESIVE BONDING MACHINE OPERATOR KARO
[2021-05-25] MEDS: predniSONE 20 MG Tablet 40 MG PO (09:28)
[2021-05-25] MEDS: Gabapentin 100 MG Capsule PO ×2 (09:28→17:50)
[2021-05-25] MEDS: Folic Acid 1 MG Tablet PO (09:28)
[2021-05-25] MEDS: Aspirin 81 MG TAB.CHEW PO (09:28)
[2021-05-25] MEDS: Citalopram 20 MG Tablet PO (09:29)
[2021-05-25] MEDS: APIXABAN 2.5 MG TABLET PO (09:29)
[2021-05-25] MEDS: Calcium Carb/Vitamin D 1 TABLET Tablet PO (09:29)
--- NOTE | 2021-05-25 11:16 | CASEMGMT ---
UMESH received a call from Breann with [facility] and they are not accepting any admissions at this time due to COVID. [facility] and spoke with Kasey. She is looking at referral now and will talk with her hospitality ambassador. She will get back to UMESH. Lucina Mayo PATIENT REPRESENTATIVE KARO
--- NOTE | 2021-05-25 12:16 | CASEMGMT ---
UMESH received a call from Kasey with [facility]. She asked for an updated MAR and patient's hemoglobins. UMESH faxed this information. Lucina HUDDLESTON
--- NOTE | 2021-05-25 13:40 | CASEMGMT ---
UMESH called Kasey as SW has not heard back. UMESH left her a voice mail requesting a return call regarding referral. UMESH then received a call from patient's daughter Barbie. UMESH updated her letting her know [facility] is not taking patients right now and that [facility] requested some updated information which UMESH sent. UMESH is just waiting on a return call . UMESH let her know that if we do hear from them patient will go today. Lucina Mayo PIER WORKER KARO
--- NOTE | 2021-05-25 13:59 | TREXTCAR_ITS ---
Diet 05/21/21 23:02 Diet: Cardiac - Heart Healthy Food consistency:: Regular Liquid Consistency:: Regular/Thin Wound(s) left forearm: Wound Type: Surgical Incision Right cheek: Wound Type: Surgical Incision Therapies Weight Bearing: Partial weight bearing Physical Therapy: Eval and Treat Occupational Therapy: Eval and Treat Speech Therapy: Eval and Treat Problem/Diagnosis (1) LES (acute kidney injury): Status: Acute (2) Hypertension: Status: Chronic Allergies/Procedures Done in Hospital Allergies doxycycline Allergy (Verified 05/22/21 19:22) Rash metronidazole [From Flagyl] Allergy (Verified 05/22/21 19:22) Hives Penicillins [PCN] Allergy (Verified 05/21/21 18:04) Hives piperacillin [From Zosyn] Allergy (Verified 05/22/21 19:22) Rash tazobactam [From Zosyn] Allergy (Verified 05/22/21 19:22) Rash ticagrelor [From Brilinta] Adverse Reaction (Verified 05/22/21 19:22) Other Type of Care/Length of Stay Estimated LOS: Convalescent Care Less Than 30 days Type of Care Needed: Skilled Rehab Potential: Good Prognosis: Good Additional Orders/Day of Discharge Day of Discharge: 05/25/21 Dietary and Speech Recommendations Dietitian Recommendations/Changes: Continue cardiac diet and monitor need to restrict fluids as indicated. ONS as needed if PO fails at meals. Discharge Plan Admission Admit Date/Time: 05/21/21 21:47 Primary Reason for Your Visit: Difficulty with urination Attending Provider: Harish Bianchi Primary Care Provider: Matilde Keller Consulting Providers: Rozina Mojica Discharge Orders/Prescriptions Prescriptions: New prednisone 10 mg tablet See Taper mg PO DAILY Qty: 30 RF: 0 Continued citalopram 20 MG tablet 20 mg PO BID RF: 0 nitroglycerin 0.4 MG tablet 0.4 mg sublingual Q5M PRN (Reason: Chest Pain) RF: 0 gabapentin 100 MG capsule 300 mg PO BIDCM RF: 0 metoprolol succinate 25 MG tablet 25 mg PO DAILY PRN PRN (Reason: high blood pressure) RF: 0 calcium carbonate-vitamin D3 [Caltrate with Vitamin D3] 1 EACH tablet 1 ea PO BID RF: 0 folic acid 1 MG tablet 1 mg PO DAILY@0800 RF: 0 Orencia (with maltose) 250 MG/10 ML recon soln 500 mg IV X1 RF: 0 levothyroxine 100 MCG tablet 150 mcg PO DAILY RF: 0 tramadol 50 MG tablet 50 mg PO Q8H PRN PRN (Reason: Pain 1-10 Or Fever) RF: 0 apixaban 2.5 MG tablet 2.5 mg PO BID RF: 0 isosorbide mononitrate 60 MG tablet 30 mg PO DAILY RF: 0 lovastatin 40 MG tablet 20 mg PO QHS RF: 0 furosemide 20 MG tablet 20 mg PO DAILY PRN (Reason: fluid retention) RF: 0 potassium chloride 10 MEQ tablet,ER particles/crystals 10 meq PO DAILY PRN PRN (Reason: supplement) RF: 0 Entresto 24-26 mg tablet 1 tab PO BID RF: 0 multivitamin Tablet 1 tab PO DAILY RF: 0 zolpidem [Ambien] 5 mg Tablet 5 mg PO QHS PRN (Reason: Sleep) RF: 0 Florajen Acidophilus 20 billion cell Capsule 10,000 mmu cells PO DAILY RF: 0 Discontinued prednisone 5 MG tablet 5 mg PO BID RF: 0 Referrals / Follow Up: Matilde Keller MD [Primary Care Provider] - Within 2 Weeks Disposition Disposition (needs filled in before D/C Order can be placed): Nursing Home Facility
--- NOTE | 2021-05-25 14:04 | CASEMGMT ---
UMESH received a return call from Kasey at [facility] and they can accept patient. UMESH will notify physician and be in touch with her. UMESH notified [facility] Pagan. UMESH also called patient's daughter letting her know. She would like UMESH to call her back regarding hop picker time. UMESH notified patient as well. Await physician orders. Lucina Mayo MSW KARO
--- NOTE | 2021-05-25 14:16 | PCM.DC.SUM ---
Documented by User: Ej BOJORQUEZ 05/25/21 14:29 Providers Date of Admission: 05/21/21 Primary Care Physician: Dr. Matilde Keller MD Consultations 05/22/21 09:56 Consult: Nephrology Routine Consulting Provider: Rozina Mojica Reason for Consult: Worsening renal function EMERGENT Consult: No MD Notified: Yes Date Notified: 05/22/21 Time Notified: 10:56 Method of Notification: Answering Service Reason For Visit: LES Diagnosis Discharge Diagnosis (1) LES (acute kidney injury): Status: Acute Code(s): N17.9 - Acute kidney failure, unspecified (2) Hypertension: Status: Chronic Code(s): I10 - Essential (primary) hypertension Qualifiers: Hypertension type: essential hypertension Qualified Code(s): I10 - Essential (primary) hypertension Medications at Discharge Home Medications Orencia (with maltose) 500 mg IV X1 02/25/16 calcium carbonate-vitamin D3 [Caltrate with Vitamin D3] 1 ea PO BID 02/25/16 citalopram 20 mg PO BID 02/25/16 folic acid 1 mg PO DAILY@0800 02/25/16 gabapentin 300 mg PO BIDCM 02/25/16 metoprolol succinate 25 mg PO DAILY PRN PRN 02/25/16 nitroglycerin 0.4 mg SUBLINGUAL Q5M PRN 02/25/16 levothyroxine 150 mcg PO DAILY 02/26/16 apixaban 2.5 mg PO BID 07/22/20 furosemide 20 mg PO DAILY PRN 07/22/20 isosorbide mononitrate 30 mg PO DAILY 07/22/20 lovastatin 20 mg PO QHS 07/22/20 potassium chloride 10 meq PO DAILY PRN PRN 07/22/20 tramadol 50 mg PO Q8H PRN PRN 07/22/20 Entresto 1 tab PO BID 05/22/21 Florajen Acidophilus 10,000 mmu cells PO DAILY 05/22/21 multivitamin 1 tab PO DAILY 05/22/21 zolpidem [Ambien] 5 mg PO QHS PRN 05/22/21 prednisone See Taper PO DAILY #30 tab 05/25/21 Hospital Course Summary of Care Provided Minutes Spent on Discharge: 35 Hospital Course: Disposition: Patient to discharge to [facility] [place] for ongoing therapy needs. 1) LES on CKD stage IV Resolved, creatinine currently at 1.2 which is back to baseline. 2) hyperkalemia Resolved. Potassium at 4.5. 3) Acute gout flare Uric acid 8.4. Patient was placed on 40 mg of prednisone which significantly improved patient's symptoms. Patient will be discharged on prednisone taper for 12 days. Prednisone dose patient was admitted on has been stopped. 4) Abnormal urinalysis Patient has remained without any urinary symptoms throughout admission and vital signs have been stable. UA on admission demonstrated urine occult blood of 150; urine protein of 30. Urine requested Estrace of 25. Urine nitrite was negative. Urine squamous cell was normal at 0.5. Urine bacteria was 1+. 5) history of heart failure Not in acute exacerbation. Continue home CHF regimen. 6) hypotension Resolved, currently 133/66. 7) paroxysmal atrial fibrillation Patient is on metoprolol for rate control and is anticoagulated on Eliquis. Hold metoprolol due to #6. 8) Chronic pancytopenia Review of CBC shows chronic anemia and thrombocytopenia.Thrombocytopenia did improve over course of admission. DVT prophylaxis - Eliquis Patient seen by Ej Vallejo PA-C, under the supervision of Dr. Bianchi. Physical Exam Narrative Patient is an 85-year-old female comfortably resting in a chair, alert and orient x3. Patient reports significant improvement of bilateral lower extremity pain and now only has minor pain with manipulation of the feet bilaterally. Denies development of any new symptoms overnight. Does not appear in acute distress. Const alert, oriented x3 and no apparent distress HEENT normocephalic, head/scalp atraumatic and hearing grossly normal bilaterally Eyes PERRL, EOMs intact bilaterally and conjunctivae normal Neck no lymphadenopathy, supple and no JVD Resp normal respiratory effort, no retractions, no use of accessory muscles and clear to auscultation bilaterally Cardio regular rate, regular rhythm, no murmurs and no JVD GI normal to inspection, nondistended, normoactive bowel sounds, soft to palpation and non-tender Extremity normal to inspection, full ROM and no clubbing, cyanosis or edema Skin no rashes or lesions noted, no wounds and skin turgor normal Neuro CN's II-XII intact bilaterally Psych affect normal Weight / BMI Weight Weight: 215 lb 6.266 oz Body Mass Index (BMI) 33.3 ABG / Lab / Microbiology Data Result Diagrams: 05/25/21 07:15 05/25/21 07:15 Laboratory: Laboratory Results - last 24 hr 05/25/21 07:15: WBC 7.0, RBC 2.62 L, Hgb 8.3 L, Hct 25.4 L, MCV 96.9, MCH 31.7, MCHC 32.7, RDW Std Deviation 53.1 H, RDW Coeff of Christiano 14.9 H, Plt Count 114 L, MPV 12.4 H, Immature Gran % (Auto) 0.300, Neut % (Auto) 61.0, Lymph % (Auto) 29.9, [place] % (Auto) 8.5, Eos % (Auto) 0.3, Baso % (Auto) 0.0, Absolute Neuts (auto) 4.3, Absolute Lymphs (auto) 2.09, Nucleated RBC % 0, Hypochromasia 1+ 05/25/21 07:15: Sodium 143, Potassium 4.5, Chloride 114 H, Carbon Dioxide 21.0, Anion Gap 8, BUN 39 H, Creatinine 1.21 H, Estim Creat Clear Calc 33.06, Est GFR (MDRD) Af Amer 54 L, Est GFR (MDRD) Non-Af 45 L, BUN/Creatinine Ratio 32.2 H, Glucose 82, Calcium 9.2, Magnesium 1.7 Microbiology: Microbiology 05/21/21 19:22 Urine Catheter - Catheter Urine Culture - Final Culture exhibits no growth. 05/21/21 23:15 Nasal Secretion SARS-CoV-2 Antigen (Rapid) - Final Meaningful Use Info Meaningful Use Diagnoses (Choose all that apply): None applicable CHF Reason PATRICIA/ARB not ordered?: Worsening renal disease Documented LVEF (%): 0 Discharge Plan Admission Admit Date/Time: 05/21/21 21:47 Primary Reason for Your Visit: Difficulty with urination Attending Provider: Harish Bianchi Primary Care Provider: Matilde Keller Consulting Providers: Rozina Mojica Discharge Orders/Prescriptions Prescriptions: New prednisone 10 mg tablet See Taper mg PO DAILY Qty: 30 RF: 0 Continued citalopram 20 MG tablet 20 mg PO BID RF: 0 nitroglycerin 0.4 MG tablet 0.4 mg sublingual Q5M PRN (Reason: Chest Pain) RF: 0 gabapentin 100 MG capsule 300 mg PO BIDCM RF: 0 metoprolol succinate 25 MG tablet 25 mg PO DAILY PRN PRN (Reason: high blood pressure) RF: 0 calcium carbonate-vitamin D3 [Caltrate with Vitamin D3] 1 EACH tablet 1 ea PO BID RF: 0 folic acid 1 MG tablet 1 mg PO DAILY@0800 RF: 0 Orencia (with maltose) 250 MG/10 ML recon soln 500 mg IV X1 RF: 0 levothyroxine 100 MCG tablet 150 mcg PO DAILY RF: 0 tramadol 50 MG tablet 50 mg PO Q8H PRN PRN (Reason: Pain 1-10 Or Fever) RF: 0 apixaban 2.5 MG tablet 2.5 mg PO BID RF: 0 isosorbide mononitrate 60 MG tablet 30 mg PO DAILY RF: 0 lovastatin 40 MG tablet 20 mg PO QHS RF: 0 furosemide 20 MG tablet 20 mg PO DAILY PRN (Reason: fluid retention) RF: 0 potassium chloride 10 MEQ tablet,ER particles/crystals 10 meq PO DAILY PRN PRN (Reason: supplement) RF: 0 Entresto 24-26 mg tablet 1 tab PO BID RF: 0 multivitamin Tablet 1 tab PO DAILY RF: 0 zolpidem [Ambien] 5 mg Tablet 5 mg PO QHS PRN (Reason: Sleep) RF: 0 Florajen Acidophilus 20 billion cell Capsule 10,000 mmu cells PO DAILY RF: 0 Discontinued prednisone 5 MG tablet 5 mg PO BID RF: 0 Referrals / Follow Up: Matilde Keller MD [Primary Care Provider] - Within 2 Weeks Disposition Disposition (needs filled in before D/C Order can be placed): Retirement Facility Documented by User: Dr. Harish Bianchi MD 05/25/21 15:19 Providers Date of Admission: 05/21/21 Reason For Visit: LES Medications at Discharge Home Medications Orencia (with maltose) 500 mg IV X1 02/25/16 calcium carbonate-vitamin D3 [Caltrate with Vitamin D3] 1 ea PO BID 02/25/16 citalopram 20 mg PO BID 02/25/16 folic acid 1 mg PO DAILY@0800 02/25/16 gabapentin 300 mg PO BIDCM 02/25/16 metoprolol succinate 25 mg PO DAILY PRN PRN 02/25/16 nitroglycerin 0.4 mg SUBLINGUAL Q5M PRN 02/25/16 levothyroxine 150 mcg PO DAILY 02/26/16 apixaban 2.5 mg PO BID 07/22/20 furosemide 20 mg PO DAILY PRN 07/22/20 isosorbide mononitrate 30 mg PO DAILY 07/22/20 lovastatin 20 mg PO QHS 07/22/20 potassium chloride 10 meq PO DAILY PRN PRN 07/22/20 tramadol 50 mg PO Q8H PRN PRN 07/22/20 Entresto 1 tab PO BID 05/22/21 Florajen Acidophilus 10,000 mmu cells PO DAILY 05/22/21 multivitamin 1 tab PO DAILY 05/22/21 zolpidem [Ambien] 5 mg PO QHS PRN 05/22/21 prednisone See Taper PO DAILY #30 tab 05/25/21 Hospital Course Operations None Summary of Care Provided Hospital Course: This patient was seen in conjunction with Ej Vallejo PA-C. I have independently interviewed and examined the patient and reviewed pertinent historical, laboratory, and other data. Please refer to Ej Vallejo PA-C's note for details of this patient's presentation, findings, and recommendations. I have reviewed Ej Vallejo PA-C's note and concur with documented findings. In brief, patient is an 85-year-old lady bilateral lower extremity pain as well as acute kidney injury admitted to monitored bed for subsequent management Hospital course as documented above ABG / Lab / Microbiology Data Result Diagrams: 05/25/21 07:15 05/25/21 07:15 Discharge Plan Admission Admit Date/Time: 05/21/21 21:47 Primary Reason for Your Visit: Difficulty with urination Attending Provider: Harish Bianchi Primary Care Provider: Matilde Keller Consulting Providers: Rozina Mojica Discharge Orders/Prescriptions Prescriptions: New prednisone 10 mg tablet See Taper mg PO DAILY Qty: 30 RF: 0 Continued citalopram 20 MG tablet 20 mg PO BID RF: 0 nitroglycerin 0.4 MG tablet 0.4 mg sublingual Q5M PRN (Reason: Chest Pain) RF: 0 gabapentin 100 MG capsule 300 mg PO BIDCM RF: 0 metoprolol succinate 25 MG tablet 25 mg PO DAILY PRN PRN (Reason: high blood pressure) RF: 0 calcium carbonate-vitamin D3 [Caltrate with Vitamin D3] 1 EACH tablet 1 ea PO BID RF: 0 folic acid 1 MG tablet 1 mg PO DAILY@0800 RF: 0 Orencia (with maltose) 250 MG/10 ML recon soln 500 mg IV X1 RF: 0 levothyroxine 100 MCG tablet 150 mcg PO DAILY RF: 0 tramadol 50 MG tablet 50 mg PO Q8H PRN PRN (Reason: Pain 1-10 Or Fever) RF: 0 apixaban 2.5 MG tablet 2.5 mg PO BID RF: 0 isosorbide mononitrate 60 MG tablet 30 mg PO DAILY RF: 0 lovastatin 40 MG tablet 20 mg PO QHS RF: 0 furosemide 20 MG tablet 20 mg PO DAILY PRN (Reason: fluid retention) RF: 0 potassium chloride 10 MEQ tablet,ER particles/crystals 10 meq PO DAILY PRN PRN (Reason: supplement) RF: 0 Entresto 24-26 mg tablet 1 tab PO BID RF: 0 multivitamin Tablet 1 tab PO DAILY RF: 0 zolpidem [Ambien] 5 mg Tablet 5 mg PO QHS PRN (Reason: Sleep) RF: 0 Florajen Acidophilus 20 billion cell Capsule 10,000 mmu cells PO DAILY RF: 0 Discontinued prednisone 5 MG tablet 5 mg PO BID RF: 0 Referrals / Follow Up: Matilde Keller MD [Primary Care Provider] - Within 2 Weeks Disposition Disposition (needs filled in before D/C Order can be placed): Retirement Facility Charges/Coding Visit Charges Inpatient E&M: 29894 Disch Hosp Hospital Course Consultations Consultations: Consultations 05/22/21 09:56 Consult: Nephrology Routine Consulting Provider: Rozina Mojica Reason for Consult: Worsening renal function EMERGENT Consult: No Notified: Yes Date Notified: 05/22/21 Time Notified: 10:56 Method of Notification: Answering Service Operations None
--- NOTE | 2021-05-25 14:34 | CASEMGMT ---
Addendum entered by Lucina Mayo 05/25/21 15:22: COVID test has resulted. SW arranged for patient to get picked up at 1830 (requested 1630 but no time until 1830) via wc van. SW faxed negative COVID and transport time to [facility]. SW notified financial secretary and Kasey at [facility]. SW notified patient's daughter Barbie. SW will notify RN and patient. Plan: d/c to [facility] under skilled level of care on a convalescent stay. [facility] transported via [facility]c van. Lucina Mayo [facility] [employer] Original Note: UMESH faxed orders to [facility]. Awaiting COVID test and will set up transport. 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
[2021-05-25 14:40] VITALS: BP 129/73; PULSE 71; RESP 18; TEMP 37; O2SAT 95
--- NOTE | 2021-05-25 18:02 | NURSING ---
1800: Attempted to call report to Karl Barnes with no response or option to leave a voicemail
--- NOTE | 2021-05-25 18:16 | NURSING ---
181: attempted to call report again to Otilio Barnes. Continuing to get the message the republican you are trying to reach is not accepting calls at this time
== END 2021-05-25 19:28 | DRG 683 ==
LOC: ED 21:58 → PCU 22:52
PROVIDERS: Internal Medicine; Physician Assistant; Admitting Provider Hospitalist; Emergency Provider Emergency Medicine; PCP Internal Medicine; Visit Provider Internal Medicine
DX: N17.9 Acute kidney failure, unspecified (principal); I13.0 Hypertensive heart and chronic kidney disease with heart failure and stage 1 through stage 4 chronic kidney disease, or unspecified chronic kidney disease; I50.20 Unspecified systolic (congestive) heart failure; D61.818 Other pancytopenia; M10.9 Gout, unspecified; N18.4 Chronic kidney disease, stage 4 (severe); M06.9 Rheumatoid arthritis, unspecified; E87.5 Hyperkalemia; I25.5 Ischemic cardiomyopathy; D63.1 Anemia in chronic kidney disease; E78.5 Hyperlipidemia, unspecified; I48.0 Paroxysmal atrial fibrillation; E03.9 Hypothyroidism, unspecified; I25.10 Atherosclerotic heart disease of native coronary artery without angina pectoris; Z79.01 Long term (current) use of anticoagulants; G62.9 Polyneuropathy, unspecified; Z95.0 Presence of cardiac pacemaker; F32.A Depression, unspecified; E66.9 Obesity, unspecified; Z68.33 Body mass index [BMI] 33.0-33.9, adult
CPT/HCPCS: 36415; 71045; 73610; 73630; 76770; 80048; 81001; 82570; 83605; 83735; 83880; 84300; 84540; 84550; 85025; 85652; 86140; 87086; 87426; 93005; 93306; 97110; 97162; 97166; 97530; 97535; 99285; J7030; Q9957; A4216; C8929; J0610; J3490

== ENCOUNTER 2021-06-10 20:32 | Inpatient (IN) | payer MEDICARE, OTHER, SELFPAY ==
[2021-06-10] VITALS (9 sets, daily range): BP systolic 0–128; BP diastolic 0–105; PULSE 0–116; RESP 0–22; TEMP -17.7–36.3; O2SAT 0–99; BMI 35.9; BMI 32.3
--- NOTE | 2021-06-10 20:40 | EKG12_ITS ---
Test Reason : CPR Blood Pressure : / mmHG Vent. Rate : 101 BPM Atrial Rate : 102 BPM P-R Int : 152 ms QRS Dur : 082 ms QT Int : 402 ms P-R-T Axes : 054 062 056 degrees QTc Int : 521 ms Sinus tachycardia Prolonged QT Abnormal ECG Confirmed by MARI HUYNH, NAZIA ([id number]), subeditor SHAUNNA RASCON ([id number]) on 06/11/2021 12:35:17 PM Referred By: ALEC Confirmed By:NAZIA GUERRA MD
--- NOTE | 2021-06-10 20:50 | CM.ED ---
Addendum entered by Katie Kyle 06/10/21 21:21: UMESH met with patient' son, daughter in law and granddaughter. Emotional support provided. No further SW needs at this time but SW remains available. Katie Kyle Original Note: UMESH Note Referral Source: Belem Murphy Referral Reason: Belem Murphy SW provided emotional support. Patient's son, who was with patient, said he wanted chest compressions for patient. Patient's son called other sibling for support. SW will remain available if needs arise. Sw went into patient's room to speak with son. He was speaking to MD. Plan: To be determined Katie JOSEPH
[2021-06-10 20:56] LABS: Absolute Lymphocyte Count 12.21 X10^3/uL (0.83-4.51); Absolute Neutrophil Count 13.1 X10^3/uL (2.0-7.7); Basophil# 0.11 X10^3/uL; Basophil% 0.4 % (0-1); Eosinophil# 0.13 X10^3/uL; Eosinophils% 0.5 % (0-5); Hematocrit 34.7 % (37-47); Hemoglobin 10.5 g/dL (12.0-15.0); Lymphocyte # 12.21 X10^3/ul (0.83-4.51); Lymphocyte % 42.7 % (19-41); Mean Corp Hgb Conc 30.3 g/dL (32-36); Mean Corpuscular Hgb 31.5 pg (27.0-32.0); Mean Corpuscular Volume 104.2 fL (81-99); Mean Platelet Vol. 13.6 fl (6.2-12.0); Monocyte# 2.72 X10^3/uL; Monocyte% 9.5 % (0-10); NRBC Flagged by Analyzer 0 % (0-5); Neutrophil # 13.12 X10^3/uL (2.7-7.7); Neutrophil % 45.9 % (47-70); POSITIVE DIFFERENTIAL YES; POSITIVE MORPHOLOGY YES; Platelet Count 109 K/mm3 (150-450); RBC Distribution Width CV 15.1 % (11.6-14.6); RBC Distribution Width SD 57.7 fl (35.1-43.9); Red Blood Count 3.33 M/mm3 (4.2-5.4); White Blood Count 28.6 K/mm3 (4.4-11.0)
[2021-06-10] MEDS: Metoclopramide 10 MG/2 ML Vial 5 MG IV (20:58)
[2021-06-10] MEDS: 0.9% Normal Saline 1,000 ML 999 ML IV (21:00)
[2021-06-10] MEDS: 0.9% Normal Saline 1,000 ML 150 ML IV (21:00)
--- NOTE | 2021-06-10 21:00 | ED.RN ---
Pt arrived approx 2019 via family car. Pt was assisted into wheelchair and taken back to room. Pt was alert and talking but was lethargic. Pt was incontinent in route to ED and was covered in vomit. Staff was attempting to clean patient up, put her in a gown and assist her into the bed when she started vomiting again and stated she felt like she was going to pass out. Pt quickly assisted into bed where, while being boosted up she began vomiting while lying down. Pt was quickly sat up when she went unresponsive and staff could not find a pulse. CPR was started approx 2029 and [employer] called. Pt has DNR CCA paperwork, family at bedside states they want CPR but no intubation. pulse achieved after 2 minutes of CPR. Pt on nonrebreather 15L O2 and is 98%.
[2021-06-10 21:02] LABS: Differential Indicated SCAN CRITERIA MET
[2021-06-10 21:04] LABS: International Normalized Ratio 1.6; Prothrombin Time (Protime)PT. 18.3 SECONDS (11.7-14.9)
--- NOTE | 2021-06-10 21:04 | EDS_ITS ---
HPI History of Present Illness Chief Complaint: CPR Narrative Narrative: Patient being brought to the emergency room by private vehicle for evaluation. Per son she has been complaining of not being able to urinate today. She is also complaining of some back pain and right foot pain that staff at her correction thought was secondary to gout. Because a local squad for her correction would not bring her to [place], son chose to transport her in his vehicle. Nursing staff states patient was talking to them as they were pushing her down the hallway in a wheelchair. As the nursing staff was placing the patient in the bed she was nauseated and vomited. She then became unrespons adrianne. As I entered the room nursing staff stated that they did not feel a pulse. Patient was placed in the supine position and chest compressions were started. Ambu bag was used to assist respirations. As nursing staff left the paperwork to get her entered into the computer they did note that she had a DNR CCA order with her. Patient's son was at bedside and immediately discussed with him. He stated that it was okay to continue chest compressions. If we got a pulse back and she began spontaneous respirations that was okay, but they did not want patient put on a ventilator. After approximately 2 to 3 minutes of chest compressions patient was noted to have a pulse. Respiratory therapy staff was just assisting with self initiated respirations. Patient was able to be transitioned to nonrebreather mask. [facility] Medical History (Updated 06/10/21 @ 22:[address] Sridevi Becerril MD) LES (acute kidney injury) Anemia in chronic renal disease CAD (coronary artery disease) Chronic anemia Chronic kidney disease, stage 4 (severe) CKD (chronic kidney disease), stage III Hyperlipidemia Hypertension Hyperthyroidism Hypothyroidism ICD (implantable cardioverter-defibrillator) in place Ischemic cardiomyopathy Pacemaker PAF (paroxysmal atrial fibrillation) Rheumatoid arthritis Systolic CHF Home Medications Orencia (with maltose) 500 mg IV X1 02/25/16 [History Last Taken Unknown] calcium carbonate-vitamin D3 [Caltrate with Vitamin D3] 1 ea PO BID 02/25/16 [ History Last Taken 07/22/20] citalopram 20 mg PO BID 02/25/16 [History Last Taken 07/22/20] folic acid 1 mg PO DAILY@0800 02/25/16 [History Last Taken 07/22/20] gabapentin 300 mg PO BIDCM 02/25/16 [History Last Taken 07/22/20] metoprolol succinate 25 mg PO DAILY PRN PRN 02/25/16 [History Last Taken 07/22/20] nitroglycerin 0.4 mg SUBLINGUAL Q5M PRN 02/25/16 [History Last Taken Unknown] levothyroxine 150 mcg PO DAILY 02/26/16 [History Last Taken 07/22/20] apixaban 2.5 mg PO BID 07/22/20 [History Last Taken 07/22/20] furosemide 20 mg PO DAILY PRN 07/22/20 [History Last Taken 07/22/20] isosorbide mononitrate 30 mg PO DAILY 07/22/20 [History Last Taken Unknown] lovastatin 20 mg PO QHS 07/22/20 [History Last Taken 07/21/20] potassium chloride 10 meq PO DAILY PRN PRN 07/22/20 [History Last Taken 07/22/20] tramadol 50 mg PO Q8H PRN PRN 07/22/20 [History Last Taken Unknown] Entresto 1 tab PO BID 05/22/21 [History Last Taken Unknown] Florajen Acidophilus 10,000 mmu cells PO DAILY 05/22/21 [History Last Taken Unknown] multivitamin 1 tab PO DAILY 05/22/21 [History Last Taken Unknown] zolpidem [Ambien] 5 mg PO QHS PRN 05/22/21 [History Last Taken Unknown] prednisone See Taper PO DAILY #30 tab 05/25/21 [Rx Last Taken Unknown] Allergy/AdvReac Type Severity Reaction Status Date / Time doxycycline Allergy Rash Verified 05/22/21 19:22 metronidazole [From Flagyl] Allergy Hives Verified 05/22/21 19:22 Penicillins [PCN] Allergy Hives Verified 05/21/21 18:04 piperacillin [From Zosyn] Allergy Rash Verified 05/22/21 19:22 tazobactam [From Zosyn] Allergy Rash Verified 05/22/21 19:22 ticagrelor [From Brilinta] AdvReac Other Verified 05/22/21 19:22 Family History Other Cancer Heart disease High cholesterol Hypertension Surgical History H/O hemorrhoidectomy History of permanent cardiac pacemaker placement History of total replacement of right ankle Hx of cholecystectomy S/P bilateral cataract extraction Stented coronary artery Social History Smoking Status: Never smoker ROS ROS ED Review of Systems ROS Unobtainable: due to mental condition EXAM Physical Exam Narrative Exam Narrative: Physical exam performed after return of spontaneous circulation. Const Vital Signs: 06/10/21 20:32 06/10/21 20:35 06/10/21 20:41 Temperature 0 F L Temperature Source Temporal Pulse Rate 0 L 100 Respiratory Rate 0 L 15 Respiratory Effort Blood Pressure 0/0 L 106/36 L Blood Pressure Mean 59 Pulse Ox 0 99 Oxygen Delivery Method Non-Rebreather Room Air Oxygen Flow Rate (L/min) 15 06/10/21 21:02 06/10/21 21:20 06/10/21 21:30 Temperature Temperature Source Pulse Rate 101 H 103 H Respiratory Rate 22 H 21 H Respiratory Effort Short of Breath Labored Blood Pressure 128/105 H 84/56 L Blood Pressure Mean 112 65 Pulse Ox 99 97 Oxygen Delivery Method Non-Rebreather Non-Rebreather Oxygen Flow Rate (L/min) 15 06/10/21 22:00 Temperature Temperature Source Pulse Rate 109 H Respiratory Rate 21 H Respiratory Effort Blood Pressure 103/61 Blood Pressure Mean 75 Pulse Ox 94 Oxygen Delivery Method Non-Rebreather Oxygen Flow Rate (L/min) 15 Positive well nourished and well developed General Appearance ED: well developed HEENT Reports moist mucous membranes Neck supple Chest Wall inspection of chest normal Resp Resp Narrative: Bilateral rhonchi noted on auscultation. Cardio Rate: tachycardic GI non-tender Inspection: abdominal distention Palpation: soft Extremity Extremity Narrative: Skin tears noted to the bilateral shins. Neuro Neuro Narrative: Patient will open eyes and look around the room. She will nod to answer questions. MDM MDM MDM Narrative Medical decision making narrative: Lab work, chest x-ray, urinalysis ordered. Covid swab ordered. EKG ordered. Lab Data Attestation: I reviewed the patient's lab results. Labs: Laboratory Results - last 24 hr 06/10/21 06/10/21 06/10/21 20:37 20:37 20:37 WBC 28.6 H RBC 3.33 L Hgb 10.5 L Hct 34.7 L MCV 104.2 H MCH 31.5 MCHC 30.3 L RDW Std Deviation 57.7 H RDW Coeff of Christiano 15.1 H Plt Count 109 L MPV 13.6 H Immature Gran % (Auto) 1.000 H Neut % (Auto) 45.9 L Lymph % (Auto) 42.7 H [place] % (Auto) 9.5 Eos % (Auto) 0.5 Baso % (Auto) 0.4 Absolute Neuts (auto) 13.1 H Absolute Lymphs (auto) 12.21 H Nucleated RBC % 0 Differential Comment SCANNED Diff Path Review October foll PT 18.3 H INR 1.6 APTT 38.9 H Sodium 137 Potassium 4.9 Chloride 103 Carbon Dioxide 20.0 L Anion Gap 14 BUN 59 H Creatinine 5.16 H Estim Creat Clear Calc 7.46 Est GFR (MDRD) Af Amer 10 L Est GFR (MDRD) Non-Af 8 L BUN/Creatinine Ratio 11.4 Glucose 170 H Lactic Acid Calcium 9.4 Total Bilirubin 0.70 Direct Bilirubin 0.21 AST 75 H ALT 86 H Alkaline Phosphatase 147 H Troponin I High Sens 45 Total Protein 8.0 Albumin 3.5 Globulin 4.5 H 06/10/21 20:48 WBC RBC Hgb Hct MCV MCH MCHC RDW Std Deviation RDW Coeff of Christiano Plt Count MPV Immature Gran % (Auto) Neut % (Auto) Lymph % (Auto) [place] % (Auto) Eos % (Auto) Baso % (Auto) Absolute Neuts (auto) Absolute Lymphs (auto) Nucleated RBC % Differential Comment Diff Path Review PT INR APTT Sodium Potassium Chloride Carbon Dioxide Anion Gap BUN Creatinine Estim Creat Clear Calc Est GFR (MDRD) Af Amer Est GFR (MDRD) Non-Af BUN/Creatinine Ratio Glucose Lactic Acid 6.7 H* Calcium Total Bilirubin Direct Bilirubin AST ALT Alkaline Phosphatase Troponin I High Sens Total Protein Albumin Globulin Radiography Chest X-Ray - ED: 1 View, Read by ED Physician and Cardiomegaly Diagnostic Testing: Clinical Impression(s) from Imaging Studies Chest X-Ray 06/10/21 21:08 IMPRESSION: There are no acute findings. Electronically Signed: Parveen Cruz MD at 21:30 EST , Service support , EKG Initial EKG: Attestation: I personally reviewed and interpreted this EKG as follows: Interpretation: Sinus Tachycardia (Sinus tach at 101. No acute ischemia.) Treatment and Re-Evaluation Comments:: On repeat evaluation patient resting comfortably with her eyes closed. She remains on nonrebreather and satting 100%. Respirations continue to sound very rhonchorous. Lab work reviewed with granddaughter at bedside who is a nurse. White count is elevated at 28.6. Chemistry studies reveal a BUN of 59 and a creatinine of 5.16. Glucose is 170. Troponin is 45 and lactic acid is 6.7. Patient does have a history of CHF and respiration sound wet at this time. She was given a liter and a half of IV fluids. Systolic pressure at this time is 103. Patient was given dose of clindamycin secondary to concern for aspiration. She does have allergies to Flagyl and penicillin/Zosyn. Critical Care Time Critical Care Time: Yes Critical care time (excluding procedures): 30-74 minutes (45 minutes), Including time spent:, Discussing w/Patient &/or Family/District Commercial Superintendent, Arranging Admission or Transfer and Performing Direct Patient Care at Bedside Discharge Plan Dx/Rx/DC Orders Clinical Impression: Cardiac arrest, Leukocytosis, Aspiration into airway, Acute renal failure Disposition Disposition: Acute Care [facility]
[2021-06-10 21:05] LABS: Partial Thromboplast Time 38.9 Seconds (24.1-36.2)
--- NOTE | 2021-06-10 21:06 | ED.RN ---
Pt is now awake and talking to staff and family at bedside.
--- NOTE | 2021-06-10 21:08 | RAD_ITS ---
STUDY: XR Chest 1 View 06/10/2021 9:01 PM REASON FOR EXAM: Female, 85 years old. CHEST PAIN sob COMPARISON: 05/21/2021 TECHNIQUE: XR Chest 1 View FINDINGS: There is no demonstrated pleural abnormality. There is a left sided pacemaker batterypack. Enlarged heart size. Normal mediastinum. Normal leonie. Prominent appearing increased interstitial lung markings. Normal visualized pulmonary arteries. There is atherosclerotic calcification of the aortic arch with tortuosity. There are diffuse degenerative changes of the visualized thoracic spine. There is degenerative osteoarthritis of the bilateral shoulders. There is no demonstrated abnormality of the visualized soft tissue structures of the upper abdomen. RAD/Chest 1 View (Portable) IMPRESSION: There are no acute findings. Electronically Signed: Parveen Cruz MD at 21:30 EST , Service support ,
[2021-06-10 21:16] LABS: AST(SGOT) 75 U/L (15-37); Alanine Aminotransfer ALT/SGPT 86 U/L (13-56); Albumin, Serum 3.5 g/dL (3.2-5.0); Alkaline Phosphatase 147 U/L (45-117); Anion Gap 14 (5-15); BUN 59 mg/dL (7-18); BUN/Creat Ratio 11.4 RATIO (10-20); Bilirubin, Direct 0.21 mg/dL (0.00-0.30); Calcium,Total 9.4 mg/dL (8.5-10.1); Chloride 103 mmol/L (98-107); Creatinine, Serum 5.16 mg/dL (0.55-1.02); EST Glomerular Filtration Rate 8 mL/min (>60); Est Glom Filt Rate - Afr Amer 10 mL/min (>60); Estimated Creatinine Clearance 7.46 ml/min; Globulin 4.5 g/dL (2.2-4.2); Glucose 170 mg/dL (74-106); Potassium 4.9 mmol/L (3.5-5.1); Sodium Level 137 mmol/L (136-145); Troponin-I HS 45 pg/mL (3.0-54.0)
[2021-06-10 21:27] LABS: Differential Comment SCANNED
[2021-06-10 21:27] LABS: Lactic Acid 6.7 mmol/L (0.4-1.9)
--- NOTE | 2021-06-10 22:38 | PCM.HP.STD ---
HPI - General General Date of Admission: 06/10/21 Date of Service: 06/10/21 Chief Complaint: Cardiac arrest, acute aspiration HPI Narrative ALFONZO MILLS, is a 85 F who presents to the emergency room at [facility] after being brought in by private car due to lack of urinary output today, patient been complaining of some back discomfort and right foot pain also. Initially the local squad was called to transported to the hospital for evaluation but the ambulance would not take her to [facility] and she went by private car instead. Patient was being pushed into the emergency room via wheelchair as the nursing staff was placing her in bed she became acutely nauseated and vomited. She then became unresponsive, nursing staff said they did not feel a pulse, patient was placed in the supine position and CPR was started, patient was not intubated, an Ambu bag was used to assist respirations. It was then noted that the patient had paperwork with her that noted she was a DNR CC arrest. Patient's son was at the bedside and this was immediately discussed with them and he stated it was okay to continue chest compressions, after approximately 2 to 3 minutes of chest compressions, patient was noted to have a pulse and CPR was stopped. Patient was transitioned to nonrebreather mask. Labs were obtained on the patient, her white blood cell count was 28.6, hemoglobin was 10.5, chemistry profile revealed a BUN of 59, creatinine was 5.16, glucose was 170, and lactic acid was 6.7. Patient's AST was elevated at 75, ALT was elevated at 86, and alkaline phosphatase was 147. Chest x-ray showed no acute findings. Urinalysis was not able to be obtained at the time of this dictation. EKG showed a sinus tachycardia with no acute ischemic changes. I had a discussion with the patient's family and with the patient, she does not consent to a central line if necessary, she wants a DNR CC arrest without intubation CODE STATUS. I discussed this with the patient's POA also. Patient will be admitted to PCU due to her CODE STATUS, placed on IV antibiotics and given IV fluids, Ayers catheter will be placed, I feel her lactic acid elevation is secondary to her cardiac arrest. Cardiac enzymes will be cycled. She will be seen in consultation by nephrology. [facility] Medical History (Updated 06/10/21 @ 22:[address] Sridevi Becerril MD) LES (acute kidney injury) Anemia in chronic renal disease CAD (coronary artery disease) Chronic anemia Chronic kidney disease, stage 4 (severe) CKD (chronic kidney disease), stage III Hyperlipidemia Hypertension Hyperthyroidism Hypothyroidism ICD (implantable cardioverter-defibrillator) in place Ischemic cardiomyopathy Pacemaker PAF (paroxysmal atrial fibrillation) Rheumatoid arthritis Systolic CHF Home Medications calcium carbonate-vitamin D3 [Caltrate with Vitamin D3] 1 ea PO DAILY 02/25/16 [History Last Taken 07/22/20] citalopram 20 mg PO DAILY 02/25/16 [History Last Taken 07/22/20] folic acid 1 mg PO DAILY@0800 02/25/16 [History Last Taken 07/22/20] gabapentin 300 mg PO BIDCM 02/25/16 [History Last Taken 07/22/20] nitroglycerin 0.4 mg SUBLINGUAL Q5M PRN 02/25/16 [History Last Taken Unknown] levothyroxine 150 mcg PO DAILY 02/26/16 [History Last Taken 07/22/20] apixaban 2.5 mg PO BID 07/22/20 [History Last Taken 07/22/20] furosemide 20 mg PO QODAY 07/22/20 [History Last Taken 07/22/20] isosorbide mononitrate 30 mg PO DAILY 07/22/20 [History Last Taken Unknown] lovastatin 20 mg PO QHS 07/22/20 [History Last Taken 07/21/20] potassium chloride 10 meq PO QODAY 07/22/20 [History Last Taken 07/22/20] Entresto 1 tab PO BID 05/22/21 [History Last Taken Unknown] Florajen Acidophilus 10,000 mmu cells PO DAILY 05/22/21 [History Last Taken Unknown] multivitamin 1 tab PO DAILY 05/22/21 [History Last Taken Unknown] allopurinol 100 mg PO DAILY 06/10/21 [History Last Taken Unknown] prednisone 5 mg PO DAILY 06/10/21 [History Last Taken Unknown] Allergy/AdvReac Type Severity Reaction Status Date / Time doxycycline Allergy Rash Verified 05/22/21 19:22 metronidazole [From Flagyl] Allergy Hives Verified 05/22/21 19:22 Penicillins [PCN] Allergy Hives Verified 05/21/21 18:04 piperacillin [From Zosyn] Allergy Rash Verified 05/22/21 19:22 tazobactam [From Zosyn] Allergy Rash Verified 05/22/21 19:22 ticagrelor [From Brilinta] AdvReac Other Verified 05/22/21 19:22 Family History Other Cancer Heart disease High cholesterol Hypertension Surgical History H/O hemorrhoidectomy History of permanent cardiac pacemaker placement History of total replacement of right ankle Hx of cholecystectomy S/P bilateral cataract extraction Stented coronary artery Social History Smoking Status: Never smoker ROS Constitutional Constitutional: Denies anorexia, change in weight, chills, fever(s), night sweats or weakness Eyes Eyes: Denies blurry vision, change in vision, discharge from eye(s) or eye pain Cardiovascular Cardiovascular: Denies chest pain, claudication, edema or palpitations Respiratory/Chest Respiratory/Chest: Denies cough, hemoptysis, shortness of breath at rest or shortness of breath with exertion Gastrointestinal Gastrointestinal: Denies abdominal pain, constipation, diarrhea, hematemesis, hematochezia, melena, nausea or vomiting Genitourinary Genitourinary: Reports difficulty urinating; Denies burning urination, dysuria, hematuria, urinary frequency, urinary hesitancy, urinary incontinence or urinary urgency Musculoskeletal Musculoskeletal: Denies back pain, joint pain, joint stiffness, joint swelling, myalgias or neck pain Neurologic Neurologic: Denies abnormal gait, abnormal speech, dizziness, focal weakness, headache(s), loss of vision, numbness, other visual disturbances, paresthesias, syncope or tingling Psychiatric Psychiatric: Denies anxiety, cognitive impairment, depression, irritability, mood swings or suicidal ideation Endocrine Endocrinology: Denies change in body appearance, cold intolerance, excessive sweating, heat intolerance, polydipsia or polyuria Hematologic/Lymphatic Hematologic/Lymphatic: Denies none, anemia, easy bleeding, easy bruising or lymphadenopathy Allergic/Immunologic Allergic/Immunologic: Denies rhinitis, urticaria, eczemia or asthma Vital Signs Vital Signs Vital Signs: 06/10/21 20:32 06/10/21 20:35 06/10/21 20:41 Temperature 0 F L Temperature Source Temporal Pulse Rate 0 L 100 Respiratory Rate 0 L 15 Respiratory Effort Blood Pressure 0/0 L 106/36 L Blood Pressure Mean 59 Pulse Ox 0 99 Oxygen Delivery Method Non-Rebreather Room Air Oxygen Flow Rate (L/min) 15 06/10/21 21:02 06/10/21 21:20 06/10/21 21:30 Temperature Temperature Source Pulse Rate 101 H 103 H Respiratory Rate 22 H 21 H Respiratory Effort Short of Breath Labored Blood Pressure 128/105 H 84/56 L Blood Pressure Mean 112 65 Pulse Ox 99 97 Oxygen Delivery Method Non-Rebreather Non-Rebreather Oxygen Flow Rate (L/min) 15 06/10/21 22:00 Temperature Temperature Source Pulse Rate 109 H Respiratory Rate 21 H Respiratory Effort Blood Pressure 103/61 Blood Pressure Mean 75 Pulse Ox 94 Oxygen Delivery Method Non-Rebreather Oxygen Flow Rate (L/min) 15 Weight Weight: 101.1 kg Body Mass Index (BMI) 35.9 Physical Exam Narrative Patient is alert at this time and responds to simple questions appropriately, she is on a nonrebreather at this time Const alert, oriented x3 and no apparent distress General Appearance: cooperative, well kempt and well developed Orientation / Consciousness: awake, oriented to person, oriented to place and oriented to time HEENT normocephalic, head/scalp atraumatic, hearing grossly normal bilaterally and moist oral mucous membranes Eyes PERRL, EOMs intact bilaterally and conjunctivae normal Neck nuchal rigidity, supple, no JVD, thyroid normal and no carotid bruits General: trachea midline Resp normal respiratory effort, no retractions, no use of accessory muscles and clear to auscultation bilaterally Auscultation: Negative for rales, rhonchi or wheezes Cardio regular rate, regular rhythm, S1 normal heart sound, S2 normal heart sound, no murmurs, no rub and no gallops GI normal to inspection, nondistended, normoactive bowel sounds, soft to palpation, non-tender and non-distended Extremity no clubbing, cyanosis or edema Skin no rashes or lesions noted General Skin Exam: no breakdown Neuro oriented x3, CN's II-XII intact bilaterally, no focal motor deficits and no sensory deficits noted Sensorium / Orientation: awake and alert Speech: speech normal Psych thought process normal and affect normal Results Lab / Micro Data Result Diagrams: 06/10/21 20:37 06/10/21 20:37 Labs: Laboratory Results - last 24 hr 06/10/21 20:37: WBC 28.6 H, RBC 3.33 L, Hgb 10.5 L, Hct 34.7 L, MCV 104.2 H, MCH 31.5, MCHC 30.3 L, RDW Std Deviation 57.7 H, RDW Coeff of Christiano 15.1 H, Plt Count 109 L, MPV 13.6 H, Immature Gran % (Auto) 1.000 H, Neut % (Auto) 45.9 L, Lymph % (Auto) 42.7 H, [place] % (Auto) 9.5, Eos % (Auto) 0.5, Baso % (Auto) 0.4, Absolute Neuts (auto) 13.1 H, Absolute Lymphs (auto) 12.21 H, Nucleated RBC % 0, Differential Comment SCANNED, Diff Path Review October foll 06/10/21 20:37: PT 18.3 H, INR 1.6, APTT 38.9 H 06/10/21 20:37: Sodium 137, Potassium 4.9, Chloride 103, Carbon Dioxide 20.0 L, Anion Gap 14, BUN 59 H, Creatinine 5.16 H, Estim Creat Clear Calc 7.46, Est GFR (MDRD) Af Amer 10 L, Est GFR (MDRD) Non-Af 8 L, BUN/Creatinine Ratio 11.4, Glucose 170 H, Calcium 9.4, Total Bilirubin 0.70, Direct Bilirubin 0.21, AST 75 H, ALT 86 H, Alkaline Phosphatase 147 H, Troponin I High Sens 45, Total Protein 8.0, Albumin 3.5, Globulin 4.5 H 06/10/21 20:48: Lactic Acid 6.7 H* Micro: Microbiology 06/10/21 20:52 Nasal Secretion SARS-CoV-2 Antigen (Rapid) - Final Radiology Impression Chest X-Ray 06/10/21 21:08 IMPRESSION: There are no acute findings. Electronically Signed: Parveen Cruz MD at 21:30 EST , Service support , Assessment & Plan Assessment/Plan (1) Cardiac arrest: PLAN: 1. Cardiac arrest-etiology unclear at this point-arrhythmia versus non-STEMI, again patient does not want aggressive treatment, she consents to be admitted to PCU rather than ICU due to her CODE STATUS and her relative medical stability at this point. Patient will be given IV fluids, she will be seen in consultation by nephrology, at this time I will not order an echocardiogram on the patient, I will cycle cardiac enzymes however. #2 probable aspiration-I have elected to place the patient on meropenem, she does have a strong allergy to penicillin according to her POA, she states that she got ill wound she was given penicillin but was never on the ventilator never had respiratory issues. #3 acute renal failure on a backdrop of chronic kidney disease stage IV-patient's bladder scan showed no appreciable amount of urine in her bladder, I have elected to give her fluids at this time, she had approximately 1500 cc of fluid in the ER. Patient will be seen in consultation by nephrology. Patient does not want to undergo dialysis if needed #4 leukocytosis-possibly secondary to aspiration, again patient's labs will be monitored, she will be placed on IV antibiotics #5 increased lactic acid-probably secondary to cardiac arrest #6 chronic depression #7 hypothyroidism #8 coronary artery disease #9 paroxysmal atrial fibrillation #10 ischemic cardiomyopathy Charges/Coding Visit Charges Inpatient E&M: 04867 Init Hosp L3
--- NOTE | 2021-06-10 23:56 | PCS.PANDOC ---
PANDEMIC DOCUMENTATION INITIATED: Date: 02/08/2021 Time: 190
[2021-06-11] VITALS (20 sets, daily range): BP systolic 60–110; BP diastolic 40–71; PULSE 74–117; RESP 13–27; TEMP 36.6–38.2; O2SAT 89–97
[2021-06-11] MEDS: 0.9% Normal Saline 1,000 ML 100 ML IV (00:25)
[2021-06-11 00:52] LABS: Reflex Lactate? Y
[2021-06-11 02:23] LABS: Troponin-I HS 168 pg/mL (3.0-54.0)
[2021-06-11 02:56] LABS: Lactic Acid 2.8 mmol/L (0.4-1.9)
[2021-06-11] MEDS: 0.9% Normal Saline 1,000 ML 999 ML IV (04:30)
[2021-06-11] MEDS: 0.9% Saline Lock 10 ML Syringe IV ×3 (04:34→14:08)
[2021-06-11] MEDS: Ipratropium/Albuterol Sulfate 3 ML AMPUL.NEB INHALATION (05:39)
[2021-06-11 06:18] LABS: Absolute Lymphocyte Count 0.86 X10^3/uL (0.83-4.51); Absolute Neutrophil Count 20.5 X10^3/uL (2.0-7.7); Basophil# 0.03 X10^3/uL; Basophil% 0.1 % (0-1); Hematocrit 29.3 % (37-47); Hemoglobin 8.9 g/dL (12.0-15.0); Lymphocyte # 0.86 X10^3/ul (0.83-4.51); Lymphocyte % 3.7 % (19-41); Mean Corp Hgb Conc 30.4 g/dL (32-36); Mean Corpuscular Hgb 31.4 pg (27.0-32.0); Mean Corpuscular Volume 103.5 fL (81-99); Mean Platelet Vol. 13.3 fl (6.2-12.0); Monocyte# 1.44 X10^3/uL; Monocyte% 6.3 % (0-10); NRBC Flagged by Analyzer 0 % (0-5); Neutrophil # 20.48 X10^3/uL (2.7-7.7); Neutrophil % 89.2 % (47-70); POSITIVE COUNT YES; POSITIVE DIFFERENTIAL YES; Platelet Count 89 K/mm3 (150-450); RBC Distribution Width SD 56.9 fl (35.1-43.9); Red Blood Count 2.83 M/mm3 (4.2-5.4)
[2021-06-11 06:25] LABS: Differential Indicated SCAN CRITERIA MET
--- NOTE | 2021-06-11 06:28 | NURSING ---
x1 Bolus given no urine output doctor was at patient bedside made aware. Has ruff in will continue to monitor during this shift.
[2021-06-11 06:41] LABS: Differential Comment SCANNED
[2021-06-11 06:45] LABS: Anion Gap 9 (5-15); BUN 62 mg/dL (7-18); Calcium,Total 7.8 mg/dL (8.5-10.1); Chloride 110 mmol/L (98-107); Creatinine, Serum 5.18 mg/dL (0.55-1.02); EST Glomerular Filtration Rate 8 mL/min (>60); Est Glom Filt Rate - Afr Amer 10 mL/min (>60); Estimated Creatinine Clearance 7.72 ml/min; Glucose 111 mg/dL (74-106); Potassium 5.8 mmol/L (3.5-5.1); Sodium Level 138 mmol/L (136-145)
--- NOTE | 2021-06-11 09:12 | PN.HOSP_ITS ---
Documented by User: Kasey Thorne, MASTER CONTROL TECHNICIAN-C 06/11/21 09:32 Subjective Subjective Patient seen and examined. Patient in bed with oxygen on. Patient audibly wheezing. Patient disoriented and unable to answer questions at this time. Per nursing, patient's daughter wants patient kept comfortable. Called CLAIR Renteria, patient's daughter and discussed plan of care with her. Patient's daughter requesting hospice referral due to patient's ongoing health problems and loss of pulse last night in ER. Hospice referral completed, comfort care meds ordered. Objective Data Objective Data Vital Signs: Vital Signs Temp Pulse Resp BP Pulse Ox 98.8 F 105 H 19 H 107/61 89 06/11/21 06:00 06/11/21 08:00 06/11/21 08:00 06/11/21 08:00 06/11/21 08:00 Oxygen Flow Rate (L/min) 10 Oxygen Delivery Method Nasal Cannula Weight: 206 lb 9.17 oz Body Mass Index (BMI) 32.3 Intake & Output: Intake and Output for Last 24 Hours 06/09/21 06/10/21 06/11/21 23:59 23:59 23:59 Intake Total 1229 / 1229 1561.67 / 1561.67 Balance 1229 / 1229 1561.67 / 1561.67 Lab / Micro Data Result Diagrams: 06/11/21 05:55 06/11/21 05:55 Labs: Laboratory Results - last 24 hr 06/10/21 20:37: WBC 28.6 H, RBC 3.33 L, Hgb 10.5 L, Hct 34.7 L, MCV 104.2 H, MCH 31.5, MCHC 30.3 L, RDW Std Deviation 57.7 H, RDW Coeff of Christiano 15.1 H, Plt Count 109 L, MPV 13.6 H, Immature Gran % (Auto) 1.000 H, Neut % (Auto) 45.9 L, Lymph % (Auto) 42.7 H, Moca % (Auto) 9.5, Eos % (Auto) 0.5, Baso % (Auto) 0.4, Absolute Neuts (auto) 13.1 H, Absolute Lymphs (auto) 12.21 H, Nucleated RBC % 0, Differential Comment SCANNED, Diff Path Review October06/10/21 20:37: PT 18.3 H, INR 1.6, APTT 38.9 H 06/10/21 20:37: Sodium 137, Potassium 4.9, Chloride 103, Carbon Dioxide 20.0 L, Anion Gap 14, BUN 59 H, Creatinine 5.16 H, Estim Creat Clear Calc 7.46, Est GFR (MDRD) Af Amer 10 L, Est GFR (MDRD) Non-Af 8 L, BUN/Creatinine Ratio 11.4, Glucose 170 H, Calcium 9.4, Total Bilirubin 0.70, Direct Bilirubin 0.21, AST 75 H, ALT 86 H, Alkaline Phosphatase 147 H, Troponin I High Sens 45, Total Protein 8.0, Albumin 3.5, Globulin 4.5 H 06/10/21 20:48: Lactic Acid 6.7 H* 06/11/21 01:55: Troponin I High Sens 168 H* 06/11/21 01:55: Lactic Acid 2.8 H* 06/11/21 05:55: WBC 23.0 H, RBC 2.83 L, Hgb 8.9 L, Hct 29.3 L, MCV 103.5 H, MCH 31.4, MCHC 30.4 L, RDW Std Deviation 56.9 H, RDW Coeff of Christiano 15.0 H, Plt Count 89 L, MPV 13.3 H, Immature Gran % (Auto) 0.700, Neut % (Auto) 89.2 H, Lymph % (Auto) 3.7 L, Moca % (Auto) 6.3, Eos % (Auto) 0.0, Baso % (Auto) 0.1, Absolute Neuts (auto) 20.5 H, Absolute Lymphs (auto) 0.86, Nucleated RBC % 0, Differential Comment SCANNED 06/11/21 05:55: Sodium 138, Potassium 5.8 H, Chloride 110 H, Carbon Dioxide 19.0 L, Anion Gap 9, BUN 62 H, Creatinine 5.18 H, Estim Creat Clear Calc 7.72, Est GFR (MDRD) Af Amer 10 L, Est GFR (MDRD) Non-Af 8 L, BUN/Creatinine Ratio 12.0, Glucose 111 H, Calcium 7.8 L Micro: Microbiology 06/10/21 20:52 Nasal Secretion SARS-CoV-2 Antigen (Rapid) - Final Radiography Diagnostic Testing: Radiology Impression Chest X-Ray 06/10/21 21:08 IMPRESSION: There are no acute findings. Electronically Signed: Parveen Cruz MD at 21:30 EST , Service support , Physical Exam Const alert Orientation / Consciousness: confused and disoriented HEENT head/scalp atraumatic Head and Scalp: normocephalic Eyes conjunctivae normal and no scleral icterus Neck supple Resp Effort and Inspection: symmetric chest movement, tachypneic and audible wheezes Auscultation: crackles and wheezes Cardio regular rate, regular rhythm, S1 normal heart sound and S2 normal heart sound GI normal to inspection, nondistended, normoactive bowel sounds, soft to palpation and non-tender Extremity normal to inspection and full ROM General Extremity: edema bilateral lower extremity Details: mild Peripheral Pulses: Yes pulses 2+ throughout Skin no rashes or lesions noted, no wounds and skin turgor normal Neuro moves all extremities, no focal motor deficits and no sensory deficits noted Sensorium / Orientation: awake and alert Speech: speech abnormal Details: Positive for garbled Psych affect normal Assessment & Plan Assessment/Plan (1) Acute renal failure: QUALIFIERS: Acute renal failure type: unspecified Qualified Code(s): N17.9 - Acute kidney failure, unspecified (2) Aspiration into airway: QUALIFIERS: Encounter type: initial encounter Qualified Code(s): T17.908A - Unspecified foreign body in respiratory tract, part unspecified causing other injury, initial encounter PLAN: Patient is an 85-year-old female who initially presented with complaints of decreased urinary output and back discomfort. Patient vomited in the ER and subsequently became unresponsive. It is suspected that patient aspirated. Patient is a DNR CCA no intubation. Plan of care was discussed with daughter on morning of 06/11/2021 and it was determined that patient would be referred to hospice. 1. Acute renal failure -Nephrology consulted, patient has refused dialysis in the past. -No improvement overnight following fluid administration -Referral sent to hospice for evaluation for admission to their IPU. In the meantime patient will be started on comfort care medications including morphine, Ativan, atropine drops. We will continue oxygen for comfort. 2. Aspiration pneumonia -Patient currently on IV Merrem -Patient currently on 10 L nasal cannula oxygen, wet lung sounds, audible wheezes. 3. Acute on chronic HFrEF heart failure -IV Lasix 80 mg x 1 given for symptom management due to patient's fluid overload. P.o. medications for chronic diseases will be discontinued at this time due to n.p.o. status, currently unsafe to give patient p.o. medications or food. DVT prophylaxis-not indicated This patient was seen by ANCELMO Vaca under the supervision of Dr. Bianchi. Documented by User: Dr. Harish Bianchi MD 06/11/21 12:09 Objective Data Lab / Micro Data Result Diagrams: 06/11/21 05:55 06/11/21 05:55 Assessment & Plan Addt'l Comments This patient was seen in conjunction with ANCELMO Vaca . I have independently interviewed and examined the patient and reviewed pertinent historical, laboratory, and other data. Please refer to ANCELMO Vaca note for details of this patient's presentation, findings, and recommendations. I have reviewed ANCELMO Vaca note and concur with documented findings. In brief, patient is a an 85-year-old lady with multiple comorbidities brought to the emergency department with nausea and vomiting. Found to have impaired kidney function. Patient apparently did experience cardiopulmonary arrest in the ED successfully resuscitated using ACLS protocol. Admitted to a monitored bed. CODE STATUS changed to DNR CC consultation placed to the hospital 7 Physical Examination: GENERAL: Dyspneic at rest HEENT: Atraumatic; EYES; Anicteric, Normal Conjunctiva NECK; supple, normal thyroid, RESPIRATORY: Diminished to auscultation lateral rhonchi CARDIOVASCULAR: Regular S1 S2, PSYCH; Flat affect Assessment: 1. Acute kidney injury 2. Chronic kidney disease stage III 3. Ischemic cardiomyopathy 4. Rheumatoid arthritis 5. Paroxysmal A. fib 6. Hypothyroidism 7. Obesity class I with BMI of 33.3 8. Dyslipidemia 9. Hyperkalemia 10. Acute gouty arthritis flareup 11. Chronic congestive heart failure with decreased ejection fraction 12. Chronic pancytopenia 13. Physical deconditioning Recommendations ?Consult placed to hospitalist service. Patient current clinical condition di scussed with family Advance planning; did discuss with the patient's clinical condition with jarad henry. Also had further discussion regarding advanced directives as well as CODE STATUS. Did explain the various scenarios involved ( FULL CODE, DNR CCA, DNR CCA with no intubation, and DNR CC and what each meant) patient's family elected to go with DNR CC. Order was placed. Time spent on discussion 18 minutes. Charges/Coding Visit Charges Inpatient E&M: 40519 Subs Hosp L3 Procedures Hospitalists Procedures: 52761 Advncd Care Plan 30 Min
--- NOTE | 2021-06-11 09:19 | CASEMGMT ---
Hospice consult was placed in computer. MARY KATE Ortiz spoke with patient's daughter and it was agreed Hospice at the inpatient Hospice facility is the best choice. UMESH faxed referral to [facility]'s central number . UMESH will follow up with a phone call. Lucina HUDDLESTON
[2021-06-11] MEDS: Atropine Sulfate 1% 2 ml Bottle 4 DRP PO ×2 (09:44→12:58)
--- NOTE | 2021-06-11 10:13 | WOUNDNOTE ---
wound photo: right lower leg
--- NOTE | 2021-06-11 10:13 | WOUNDNOTE ---
wound photo: left lower leg
--- NOTE | 2021-06-11 10:30 | CASEMGMT ---
UMESH called Hospice to check on the referral. UMESH spoke with Sridevi at the local Hospice office. She does see the fax in the system and they are waiting on it to be processed. Lucina HUDDLESTON
[2021-06-11] MEDS: Morphine 2 MG/ML Syringe IV ×2 (11:08→14:07)
--- NOTE | 2021-06-11 11:36 | CASEMGMT ---
UMESH called Hospice to check on referral. UMESH spoke with Saad at the [facility] office. Patient's referral is still being processed. Lucina HUDDLESTON
--- NOTE | 2021-06-11 11:57 | CASEMGMT ---
Per Isaac CALVO, no call from Hospice regarding referral faxed this am. Call to Hospice call center and per Adriana in [place] office, they only have one person working on faxes at this time. This RN CM requested to be transferred to [place] office. Per Merline at [place], referral is not in computer yet at this time and she states we will just have to wait until it's inputted into system. As this RN CM ending call, Merline suddenly states that someone in office just got referral and will be working on it. Merline is aware of pt oxygen need and plan for Hospice IPU. SStrahat AMADOR CM
--- NOTE | 2021-06-11 12:30 | CASEMGMT ---
UMESH received a call from Veronica at Hospice. She said family is requesting to meet with Hospice at 3p. There is a son flying into [place] right now. UMESH notified RN, roundhouse worker, and Nurse Practitioner. Lucina HUDDLESTON
--- NOTE | 2021-06-11 15:15 | CASEMGMT ---
Family signed Hospice papers. Dr Pak is requesting a doctor to doctor call. SW notified Nurse Practitioner and physician. Lucina Mayo CABLE TELEVISION PROGRAM DIRECTOR KARO
--- NOTE | 2021-06-11 15:30 | DCINST_ITS ---
Discharge Instructions Diet Discharge Diet: No restrictions Activity Discharge Activity: Return to Normal Activity Follow Up Care Test Results: Test results from this visit will be discussed in further detail at your follow-up appointment, if applicable. Discharge Plan Admission Admit Date/Time: 06/10/21 23:06 Primary Reason for Your Visit: Acute Renal Failure Attending Provider: Harish Bianchi Primary Care Provider: Matilde Keller Consulting Providers: Rozina Mojica ; Desiree Schulz ; Harish Valles ; Zenaida Melo ; Mandi Aragon ; Krystle Jara ; Nanci Mejia ASSOCIATE PROFESSOR OF PSYCHOLOGY Discharge Orders/Prescriptions Prescriptions: New atropine 1 % Drops 4 drp PO Q3H PRN PRN (Reason: CONGESTION) Qty: 0 RF: 0 lorazepam 2 mg/mL Concentrate 1 mg PO Q4H PRN PRN (Reason: Anxiety) Qty: 0 RF: 0 morphine 2 mg/mL Syringe 2 mg IV Q3H PRN PRN (Reason: Pain Score 6-10) Qty: 0 RF: 0 Discontinued citalopram 20 MG tablet 20 mg PO DAILY RF: 0 nitroglycerin 0.4 MG tablet 0.4 mg sublingual Q5M PRN (Reason: Chest Pain) RF: 0 gabapentin 100 MG capsule 300 mg PO BIDCM RF: 0 calcium carbonate-vitamin D3 [Caltrate with Vitamin D3] 1 EACH tablet 1 ea PO DAILY RF: 0 folic acid 1 MG tablet 1 mg PO DAILY@0800 RF: 0 levothyroxine 100 MCG tablet 150 mcg PO DAILY RF: 0 apixaban 2.5 MG tablet 2.5 mg PO BID RF: 0 isosorbide mononitrate 60 MG tablet 30 mg PO DAILY RF: 0 lovastatin 40 MG tablet 20 mg PO QHS RF: 0 furosemide 20 MG tablet 20 mg PO QODAY RF: 0 potassium chloride 10 MEQ tablet,ER particles/crystals 10 meq PO QODAY RF: 0 Entresto 24-26 mg tablet 1 tab PO BID RF: 0 multivitamin Tablet 1 tab PO DAILY RF: 0 Florajen Acidophilus 20 billion cell Capsule 10,000 mmu cells PO DAILY RF: 0 allopurinol 100 mg Tablet 100 mg PO DAILY RF: 0 prednisone 10 mg tablet 5 mg PO DAILY RF: 0 Referrals / Follow Up: Matilde Keller MD [Primary Care Provider] - Disposition Disposition (needs filled in before D/C Order can be placed): Hospice in Medical Facility
--- NOTE | 2021-06-11 15:33 | PCM.DC.SUM ---
Documented by User: ANCELMO Vaca 06/11/21 15:39 Providers Date of Admission: 06/10/21 Primary Care Physician: Dr. Matilde Keller MD Consultations 06/11/21 00:02 Consult: Nephrology Routine Consulting Provider: Rozina Mojica Reason for Consult: renal failure EMERGENT Consult: No MD Notified: Yes Date Notified: 06/11/21 Time Notified: 07:40 Method of Notification: Text 06/11/21 02:33 Consult: Onc/Wound/outpatient coder Routine Comment: Reason for Consult:: skin tears to bilateral legs 06/11/21 09:05 Consult: Hospice / Palliative Care Routine Consulting Provider: [facility] Reason for Consult: Renal failure, heart failure EMERGENT Consult: No MD Notified: Yes Date Notified: 06/11/21 Time Notified: 09:05 Method of Notification: telephone Reason For Visit: CARDIAC ARREST, RENAL FAILURE Diagnosis Discharge Diagnosis (1) Acute renal failure: Status: Acute Code(s): N17.9 - Acute kidney failure, unspecified Qualifiers: Acute renal failure type: unspecified Qualified Code(s): N17.9 - Acute kidney failure, unspecified (2) Aspiration into airway: Status: Acute Code(s): T17.908A - Unspecified foreign body in respiratory tract, part unspecified causing other injury, initial encounter Qualifiers: Encounter type: initial encounter Qualified Code(s): T17.908A - Unspecified foreign body in respiratory tract, part unspecified causing other injury, initial encounter Medications at Discharge Home Medications atropine 4 drp PO Q3H PRN PRN #0 ml 06/11/21 lorazepam 1 mg PO Q4H PRN PRN #0 ml 06/11/21 morphine 2 mg IV Q3H PRN PRN #0 ml 06/11/21 Hospital Course Operations None Procedures None Summary of Care Provided Minutes Spent on Discharge: 35 Hospital Course: Patient is an 85-year-old female who originally presented to ER with complaints of low urine output and back pain. Patient vomited in ER and subsequently aspirated and experienced cardiac arrest. Patient was revived despite patient being a DNR CCA at the time due to patient's son saying that he wanted compressions done. Patient was admitted to the floor for acute renal failure as well as aspiration and leukocytosis. His daughter POA requested that patient be made hospice due to declining health status and multiple worsening medical conditions. Patient was evaluated by hospice and will be transferred to the inpatient unit at [facility] and will start. Physical Exam Const Orientation / Consciousness: lethargic HEENT normocephalic and head/scalp atraumatic Eyes conjunctivae normal and no scleral icterus Neck supple General: trachea midline Resp Auscultation: rhonchi and wheezes Cardio regular rate, regular rhythm, S1 normal heart sound, S2 normal heart sound and peripheral pulses 2+ throughout GI normal to inspection, nondistended, normoactive bowel sounds, soft to palpation and non-tender Extremity normal capillary refill and no clubbing, cyanosis or edema General Extremity: no tenderness to palpation of joints or extremities Skin skin turgor normal General Skin Exam: no breakdown Lesions: no lesions Rashes: no rashes Neuro no focal motor deficits and no sensory deficits noted Sensorium / Orientation: lethargic Motor Exam: general weakness Psych Mood & Affect: flat affect Weight / BMI Weight Weight: 206 lb 9.17 oz Body Mass Index (BMI) 32.3 ABG / Lab / Microbiology Data Result Diagrams: 06/11/21 05:55 06/11/21 05:55 Laboratory: Laboratory Results - last 24 hr 06/10/21 20:37: WBC 28.6 H, RBC 3.33 L, Hgb 10.5 L, Hct 34.7 L, MCV 104.2 H, MCH 31.5, MCHC 30.3 L, RDW Std Deviation 57.7 H, RDW Coeff of Christiano 15.1 H, Plt Count 109 L, MPV 13.6 H, Immature Gran % (Auto) 1.000 H, Neut % (Auto) 45.9 L, Lymph % (Auto) 42.7 H, [place] % (Auto) 9.5, Eos % (Auto) 0.5, Baso % (Auto) 0.4, Absolute Neuts (auto) 13.1 H, Absolute Lymphs (auto) 12.21 H, Nucleated RBC % 0, Differential Comment SCANNED, Diff Path Review October06/10/21 20:37: PT 18.3 H, INR 1.6, APTT 38.9 H 06/10/21 20:37: Sodium 137, Potassium 4.9, Chloride 103, Carbon Dioxide 20.0 L, Anion Gap 14, BUN 59 H, Creatinine 5.16 H, Estim Creat Clear Calc 7.46, Est GFR (MDRD) Af Amer 10 L, Est GFR (MDRD) Non-Af 8 L, BUN/Creatinine Ratio 11.4, Glucose 170 H, Calcium 9.4, Total Bilirubin 0.70, Direct Bilirubin 0.21, AST 75 H, ALT 86 H, Alkaline Phosphatase 147 H, Troponin I High Sens 45, Total Protein 8.0, Albumin 3.5, Globulin 4.5 H 06/10/21 20:48: Lactic Acid 6.7 H* 06/11/21 01:55: Troponin I High Sens 168 H* 06/11/21 01:55: Lactic Acid 2.8 H* 06/11/21 05:55: WBC 23.0 H, RBC 2.83 L, Hgb 8.9 L, Hct 29.3 L, MCV 103.5 H, MCH 31.4, MCHC 30.4 L, RDW Std Deviation 56.9 H, RDW Coeff of Christiano 15.0 H, Plt Count 89 L, MPV 13.3 H, Immature Gran % (Auto) 0.700, Neut % (Auto) 89.2 H, Lymph % (Auto) 3.7 L, [place] % (Auto) 6.3, Eos % (Auto) 0.0, Baso % (Auto) 0.1, Absolute Neuts (auto) 20.5 H, Absolute Lymphs (auto) 0.86, Nucleated RBC % 0, Differential Comment SCANNED 06/11/21 05:55: Sodium 138, Potassium 5.8 H, Chloride 110 H, Carbon Dioxide 19.0 L, Anion Gap 9, BUN 62 H, Creatinine 5.18 H, Estim Creat Clear Calc 7.72, Est GFR (MDRD) Af Amer 10 L, Est GFR (MDRD) Non-Af 8 L, BUN/Creatinine Ratio 12.0, Glucose 111 H, Calcium 7.8 L Microbiology: Microbiology 06/10/21 20:52 Nasal Secretion SARS-CoV-2 Antigen (Rapid) - Final Radiography Diagnostic Testing: Radiology Impression Chest X-Ray 06/10/21 21:08 IMPRESSION: There are no acute findings. Electronically Signed: Parveen Cruz MD at 21:30 EST , Service support , D/C Instructions Discharge Diet: No restrictions Meaningful Use Info Meaningful Use Diagnoses (Choose all that apply): None applicable Discharge Plan Admission Admit Date/Time: 06/10/21 23:06 Primary Reason for Your Visit: Acute Renal Failure Attending Provider: Harish Bianchi Primary Care Provider: Matilde Keller Consulting Providers: Rozina Mojica ; Desiree Schulz ; Harish Valles ; Zenaida Melo ; Mandi Aragon ; Krystle Jara ; Nanci Mejia HOOP BENDING MACHINE OPERATOR Discharge Orders/Prescriptions Prescriptions: New atropine 1 % Drops 4 drp PO Q3H PRN PRN (Reason: CONGESTION) Qty: 0 RF: 0 lorazepam 2 mg/mL Concentrate 1 mg PO Q4H PRN PRN (Reason: Anxiety) Qty: 0 RF: 0 morphine 2 mg/mL Syringe 2 mg IV Q3H PRN PRN (Reason: Pain Score 6-10) Qty: 0 RF: 0 Discontinued citalopram 20 MG tablet 20 mg PO DAILY RF: 0 nitroglycerin 0.4 MG tablet 0.4 mg sublingual Q5M PRN (Reason: Chest Pain) RF: 0 gabapentin 100 MG capsule 300 mg PO BIDCM RF: 0 calcium carbonate-vitamin D3 [Caltrate with Vitamin D3] 1 EACH tablet 1 ea PO DAILY RF: 0 folic acid 1 MG tablet 1 mg PO DAILY@0800 RF: 0 levothyroxine 100 MCG tablet 150 mcg PO DAILY RF: 0 apixaban 2.5 MG tablet 2.5 mg PO BID RF: 0 isosorbide mononitrate 60 MG tablet 30 mg PO DAILY RF: 0 lovastatin 40 MG tablet 20 mg PO QHS RF: 0 furosemide 20 MG tablet 20 mg PO QODAY RF: 0 potassium chloride 10 MEQ tablet,ER particles/crystals 10 meq PO QODAY RF: 0 Entresto 24-26 mg tablet 1 tab PO BID RF: 0 multivitamin Tablet 1 tab PO DAILY RF: 0 Florajen Acidophilus 20 billion cell Capsule 10,000 mmu cells PO DAILY RF: 0 allopurinol 100 mg Tablet 100 mg PO DAILY RF: 0 prednisone 10 mg tablet 5 mg PO DAILY RF: 0 Referrals / Follow Up: Matilde Keller MD [Primary Care Provider] - Disposition Disposition (needs filled in before D/C Order can be placed): Hospice in Medical Facility Documented by User: Dr. Harish Bianchi MD 06/11/21 16:37 Providers Date of Admission: 06/10/21 Reason For Visit: CARDIAC ARREST, RENAL FAILURE Medications at Discharge Home Medications atropine 4 drp PO Q3H PRN PRN #0 ml 06/11/21 lorazepam 1 mg PO Q4H PRN PRN #0 ml 06/11/21 morphine 2 mg IV Q3H PRN PRN #0 ml 06/11/21 Hospital Course Operations None Summary of Care Provided Minutes Spent on Discharge: 35 Hospital Course: This patient was seen in conjunction with ANCELMO Vaca . I have independently interviewed and examined the patient and reviewed pertinent historical, laboratory, and other data. Please refer to ANCELMO Vaca note for details of this patient's presentation, findings, and recommendations. I have reviewed ANCELMO Vaca note and concur with documented findings. In brief, patient is a an 85-year-old lady with multiple comorbidities brought to the emergency department with nausea and vomiting. Found to have impaired kidney function. Patient apparently did experience cardiopulmonary arrest in the ED successfully resuscitated using ACLS protocol. Admitted to a monitored bed. CODE STATUS changed to DNR CC consultation placed to the hospital Assessment: 1. Acute kidney injury 2. Chronic kidney disease stage III 3. Ischemic cardiomyopathy 4. Rheumatoid arthritis 5. Paroxysmal A. fib 6. Hypothyroidism 7. Obesity class I with BMI of 33.3 8. Dyslipidemia 9. Hyperkalemia 10. Acute gouty arthritis flareup 11. Chronic congestive heart failure with decreased ejection fraction 12. Chronic pancytopenia 13. Physical deconditioning Hospital course; as documented above ABG / Lab / Microbiology Data Result Diagrams: 06/11/21 05:55 06/11/21 05:55 Discharge Plan Admission Admit Date/Time: 06/10/21 23:06 Primary Reason for Your Visit: Acute Renal Failure Attending Provider: Harish Bianchi Primary Care Provider: Matilde Keller Consulting Providers: Rozina Mojica ; Desiree Schulz ; Harish Valles ; Zenaida Melo ; Mandi Aragon ; Krystle Jara ; Nanci Mejia HOOP BENDING MACHINE OPERATOR Discharge Orders/Prescriptions Prescriptions: New atropine 1 % Drops 4 drp PO Q3H PRN PRN (Reason: CONGESTION) Qty: 0 RF: 0 lorazepam 2 mg/mL Concentrate 1 mg PO Q4H PRN PRN (Reason: Anxiety) Qty: 0 RF: 0 morphine 2 mg/mL Syringe 2 mg IV Q3H PRN PRN (Reason: Pain Score 6-10) Qty: 0 RF: 0 Discontinued citalopram 20 MG tablet 20 mg PO DAILY RF: 0 nitroglycerin 0.4 MG tablet 0.4 mg sublingual Q5M PRN (Reason: Chest Pain) RF: 0 gabapentin 100 MG capsule 300 mg PO BIDCM RF: 0 calcium carbonate-vitamin D3 [Caltrate with Vitamin D3] 1 EACH tablet 1 ea PO DAILY RF: 0 folic acid 1 MG tablet 1 mg PO DAILY@0800 RF: 0 levothyroxine 100 MCG tablet 150 mcg PO DAILY RF: 0 apixaban 2.5 MG tablet 2.5 mg PO BID RF: 0 isosorbide mononitrate 60 MG tablet 30 mg PO DAILY RF: 0 lovastatin 40 MG tablet 20 mg PO QHS RF: 0 furosemide 20 MG tablet 20 mg PO QODAY RF: 0 potassium chloride 10 MEQ tablet,ER particles/crystals 10 meq PO QODAY RF: 0 Entresto 24-26 mg tablet 1 tab PO BID RF: 0 multivitamin Tablet 1 tab PO DAILY RF: 0 Florajen Acidophilus 20 billion cell Capsule 10,000 mmu cells PO DAILY RF: 0 allopurinol 100 mg Tablet 100 mg PO DAILY RF: 0 prednisone 10 mg tablet 5 mg PO DAILY RF: 0 Referrals / Follow Up: Matilde Keller MD [Primary Care Provider] - Disposition Disposition (needs filled in before D/C Order can be placed): Hospice in Medical Facility Hospital Course Consultations Consultations: Consultations 06/11/21 00:02 Consult: Nephrology Routine Consulting Provider: Rozina Mojica Reason for Consult: renal failure EMERGENT Consult: No MD Notified: Yes Date Notified: 06/11/21 Time Notified: 07:40 Method of Notification: Text 06/11/21 02:33 Consult: Onc/Wound/outpatient coder Routine Comment: Reason for Consult:: skin tears to bilateral legs 06/11/21 09:05 Consult: Hospice / Palliative Care Routine Consulting Provider: [facility] Reason for Consult: Renal failure, heart failure EMERGENT Consult: No Notified: Yes Date Notified: 06/11/21 Time Notified: 09:05 Method of Notification: telephone Operations None
--- NOTE | 2021-06-11 15:35 | NURSING ---
Report called to [facility]
--- NOTE | 2021-06-11 15:48 | CASEMGMT ---
Patient was accepted in the inpatient Hospice Unit. SW notified patient's family, student liaison officer, RN, and statistical secretary. All in agreement with discharge plan. Plan: d/c to [facility]. [facility] transported via cot. Lucina HUDDLESTON
[2021-06-11] MEDS: LORazepam 2 MG/ML Bottle 1 MG PO (17:09)
--- NOTE | 2021-06-11 17:40 | PCM.PN.BLA ---
Progress Note I was consulted for LES on CKD. However on my arrival, the patient's family tells me that the patient will be going to hospice center. Therefore, consult was not done. Umang Garcia MD
[2021-06-14 10:22] LABS: Pathologist Review Reviewed
== END 2021-06-11 17:48 | disposition hospice, inpatient (51) | DRG 682 ==
LOC: ED 22:08 → PCU 23:41
PROVIDERS: Admitting Provider Internal Medicine; Emergency Provider Emergency Medicine; PCP Internal Medicine; Visit Provider Internal Medicine
DX: N17.9 Acute kidney failure, unspecified (principal); I46.9 Cardiac arrest, cause unspecified; J69.0 Pneumonitis due to inhalation of food and vomit; I50.23 Acute on chronic systolic (congestive) heart failure; I13.0 Hypertensive heart and chronic kidney disease with heart failure and stage 1 through stage 4 chronic kidney disease, or unspecified chronic kidney disease; D61.818 Other pancytopenia; N18.4 Chronic kidney disease, stage 4 (severe); E03.9 Hypothyroidism, unspecified; I48.0 Paroxysmal atrial fibrillation; M06.9 Rheumatoid arthritis, unspecified; Z66 Do not resuscitate; E78.5 Hyperlipidemia, unspecified; I25.5 Ischemic cardiomyopathy; E87.5 Hyperkalemia; E66.9 Obesity, unspecified; Z68.35 Body mass index [BMI] 35.0-35.9, adult; T17.908A Unspecified foreign body in respiratory tract, part unspecified causing other injury, initial encounter; D63.1 Anemia in chronic kidney disease; I25.10 Atherosclerotic heart disease of native coronary artery without angina pectoris; Z51.5 Encounter for palliative care; Z79.01 Long term (current) use of anticoagulants; Z79.890 Hormone replacement therapy; Z88.0 Allergy status to penicillin; Z88.1 Allergy status to other antibiotic agents; Z90.49 Acquired absence of other specified parts of digestive tract; Z95.5 Presence of coronary angioplasty implant and graft; Z95.810 Presence of automatic (implantable) cardiac defibrillator; Z98.41 Cataract extraction status, right eye; Z98.42 Cataract extraction status, left eye; E78.00 Pure hypercholesterolemia, unspecified; F32.A Depression, unspecified
CPT/HCPCS: 31720; 36415; 71045; 80048; 80076; 83605; 84484; 85025; 85610; 85730; 87040; 87077; 87426; 92950; 93005; 94640; 99284; J2185; J7030; A4216